=== PATIENT | female | born 1940 | race Caucasian/White ===

== ENCOUNTER 2017-08-01 08:21 | Day surgery (SDC) | payer MEDICARE, OTHER ==
[~2017-08-01 08:21] MED LIST: Lactated Ringers 1,000 ML IV SCH
[2017-08-01] MEDS ORDERED: DIPRIVAN 200 MG/20 ML IV ONE (08:22)
[2017-08-01] MEDS ORDERED: Ketamine HCl 50 MG/ML IJ ONE (08:22)
[2017-08-01] MEDS ORDERED: Lactated Ringers 1,000 ML IV ONE (08:29)
--- NOTE | 2017-08-01 08:41 | HP ---
DATE OF SURGERY: 08/01/2017 HISTORY OF PRESENT ILLNESS: The patient is a 76 year-old with choking-type sensation upper esophagus area involving solids and liquids that has been going on for eight months worse recently. No prior upper endoscopy according to the patient. PAST MEDICAL HISTORY: PAST SURGICAL HISTORY: Cholecystectomy. Hernia repair. Hysterectomy in the past. She said she has a plate in her right leg as well. MEDICATIONS: Oxycodone, acetaminophen, lisinopril, levothyroxine for hypothyroidism, potassium chloride, Lasix, prednisone, oxybutynin. ALLERGIES: NKDA. FAMILY HISTORY: Hypertension, diabetes. SOCIAL HISTORY: No smoking or alcohol abuse. REVIEW OF SYSTEMS: Twelve systems reviewed per admission assessment. No chest pain or palpitations. Other systems negative or noncontributory as above and per preadmission questionnaire. PHYSICAL EXAMINATION: GENERAL: No acute distress. HEENT: Sclerae nonicteric. NECK: No JVD. CHEST: Equal excursion, nonlabored breathing. CVS: Regular rate and rhythm. ABDOMEN: Soft. No peritoneal signs. Nontender, nondistended. EXTREMITIES: No significant edema. NEURO: Alert, moving extremities symmetrically. No gross motor deficits noted. IMPRESSION: Dysphagia. I feel the patient will benefit from upper endoscopy possible dilatation, possible biopsy. Risks and benefits explained in detail, shown the risk sheet and explained the procedure in detail but not limited to bleeding or infection, small risk of bowel injury or perforation possibly requiring open procedure, small risk of missed or nondiagnosis or incomplete exam possibly requiring barium swallow, other studies or procedures, as well as possibility of slight increased risk if dilatation performed perforation possibly requiring major operation, ongoing morbidity or even mortality but not limited to. She also understands that occasionally this is more of a function or nerve-type problem that dilatation may not improve her swallowing or if it does improve her swallowing occasionally people need this repeated in the future with repeat dilatation down the road. She understands and agrees to the planned procedure and will proceed with EGD possible biopsy possible dilatation as an outpatient.
[2017-08-01 08:50] VITALS: O2SAT 98
[2017-08-01 11:16] VITALS: BP 190/100
[2017-08-01 11:53] VITALS: PULSE 71
--- NOTE | 2017-08-01 15:33 | OP ---
SURGERY DATE/TIME: 08/01/2017 1024 PREOPERATIVE DIAGNOSIS: History of some dysphagia. POSTOPERATIVE DIAGNOSES: 1) Proximal esophageal narrowing, distal esophageal narrowing. 2) Hiatal hernia. 3) Some mild gastritis. PROCEDURES: 1) EGD with cold biopsy of the antrum to evaluate for Helicobacter pylori. 2) Esophageal balloon dilatation distal esophagus size 20 balloon dilator. 3) Esophageal balloon dilatation proximal esophageal narrowing (size 20 balloon dilator as well). SURGEON: Dr. Cong Hudson. ANESTHESIA: MAC. ESTIMATED BLOOD LOSS: Minimal. INDICATIONS: As noted above. Risks and benefits explained in detail and not limited to and consent obtained. DESCRIPTION OF PROCEDURE AND FINDINGS: The patient is taken to the endoscopy room. MAC anesthesia introduced. After official time out and no disagreement with planned procedure, a bite block positioned. Video gastroscope easily passed down the esophagus through the patent pylorus to the junction of the second and third portion of the duodenum. On withdrawal of the scope duodenum and duodenal bulb were grossly unremarkable. Back in the stomach had some mild gastritis. Cold biopsy taken to evaluate for Helicobacter pylori. Good hemostasis noted. On retroflex she did have a hiatal hernia. It was difficult to tell the size of the hiatal but seemed to have hiatal hernia. The scope is straightened. Gastroesophageal junction was maybe around 34 cm. There did appear to be a distal esophageal narrowing. There are no signs of any obvious melvi ulceration. No signs of any masses or mucosal lesions. Definitely a narrowing. She also had some spasm and some tertiary contractions of the esophagus. It was felt she warranted balloon dilatation in this area. The scope is passed back down. Otherwise there are no signs of any obvious mucosal lesions in the remainder of the esophagus. The scope is passed back down in the stomach. Balloon catheter carefully inserted, pulled back to the narrowed area distal esophagus. The area in question was then carefully inflated to first stage for 30 to 40 seconds and second stage for 40 to 45 seconds and final stage for 2 minutes size 20 balloon dilator. The balloon was released and then pulled back up to the proximal esophagus which also appeared to have a narrowing of the proximal esophagus. She was having symptoms. It was felt this warranted balloon dilatation as well. The balloon is carefully positioned here and gradually inflated to first stage size 18 first stage for 30 to 40 seconds, the second stage for about 45 seconds, final stage for 1 1/2 to 2 minutes with size 20 balloon dilator. The balloon catheter is then released and withdrawn. The scope carefully passed back down in the stomach and gradually withdrawn. The esophagus was much more widely patent. On careful withdrawal of the scope there were no signs of any full thickness issues or injury secondary to balloon dilatation. The patient tolerated the procedure well. There were no immediate complications. Findings discussed with the family out in the waiting area. She did have tertiary contractions in the esophagus but no signs of any other masses just proximal, distal narrowed area where she was having symptoms and underwent balloon dilatation.
== END 2017-08-01 11:56 | disposition home or self-care (01) ==
LOC: SDC 08:21
PROVIDERS: ATTEND Surgery
PROC: 0DB78ZX Excision of Stomach, Pylorus, Via Natural or Artificial Opening Endoscopic, Diagnostic (ICD-10-PCS; principal; 2017-08-01)
PROC: 0D738ZZ Dilation of Lower Esophagus, Via Natural or Artificial Opening Endoscopic (ICD-10-PCS; 2017-08-01)
PROC: 0D718ZZ Dilation of Upper Esophagus, Via Natural or Artificial Opening Endoscopic (ICD-10-PCS; 2017-08-01)
DX: K22.2 Esophageal obstruction (principal); K44.9 Diaphragmatic hernia without obstruction or gangrene; K29.70 Gastritis, unspecified, without bleeding; E03.9 Hypothyroidism, unspecified; Z79.899 Other long term (current) drug therapy
CPT/HCPCS: 43239; 43249; C1726; 00740; 99100; J2704

== ENCOUNTER 2017-09-21 13:30 | Inpatient (IN) | payer MEDICARE, OTHER ==
--- NOTE | 2017-09-21 14:12 | ERPHSYRPT ---
- History of Present Illness Time Seen by Provider: 09/21/17 14:03 Source: patient Exam Limitations: no limitations Patient Subjective Stated Complaint: having 50+ bloody stools since last night. today is feeling weak and having lower abd cramping. Triage Nursing Assessment: to room per w/c. skin w/d, pale. lips very dry and cracked. abd soft but tender. normal bowel sounds heard. a/o times three. Physician History: The patient is a 77-year-old female with a friend complaining of diarrhea that began last night that progressed to bloody stools today. She has lower abdominal cramping. She is weak. 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 She denies vomiting. She denies fever. She had a colonoscopy sometime in the recent past but states she'll never have another one because it hurt. She says the colonoscopy was negative. Her of colon cancer. She recently started meloxicam and gabapentin. Her past medical history is significant for hypertension, hypothyroidism, GERD, and arthritis. Timing/Duration: yesterday Severity: severe Modifying Factors: Improves With: nothing Associated Symptoms: abdominal pain, No nausea, No vomiting Allergies/Adverse Reactions: No Known Drug Allergies Allergy (Verified 09/21/17 14:00) Home Medications: Levothyroxine Sodium 100 Mcg [Synthroid 100 Mcg] 88 mcg PO DAILY 02/18/14 [ History] Furosemide 40 mg [Lasix 40 MG] 40 mg PO DAILY 01/04/17 [History] Oxybutynin Chloride [Oxybutynin Chloride ER] 10 mg PO DAILY 01/04/17 [History] Oxycodone HCl/Acetaminophen [Percocet 7.5-325 mg Tablet] 1 each PO Q4-6HPRN PRN 01/04/17 [History] Potassium Chloride 10 Meq Tab* [Klor Con 10 MEQ] 10 meq PO DAILY 01/04/17 [ History] Prednisone 5 mg [Deltasone 5 mg] 10 mg PO DAILY 01/04/17 [History] Gabapentin [Neurontin] 300 mg PO HS 09/21/17 [History] Meloxicam [Meloxicam] 7.5 mg PO DAILY 09/21/17 [History] Omeprazole [Prilosec] 20 mg PO DAILY 09/21/17 [History] Tizanidine HCl [Tizanidine HCl] 4 mg PO HS 09/21/17 [History] Hx Tetanus, Diphtheria Vaccination/Date Given: No Hx Influenza Vaccination/Date Given: No Hx Pneumococcal Vaccination/Date Given: Yes - Review of Systems Constitutional: Weakness Eyes: No Symptoms Ears, Nose, & Throat: No Symptoms Respiratory: No Cough, No Dyspnea Cardiac: No Chest Pain, No Edema, No Syncope Abdominal/Gastrointestinal: Abdominal Pain, Diarrhea, Melena, No Nausea, No Vomiting Genitourinary Symptoms: No Dysuria Musculoskeletal: No Back Pain, No Neck Pain Skin: No Rash Neurological: No Dizziness, No Focal Weakness, No Sensory Changes Psychological: No Symptoms Endocrine: No Symptoms Hematologic/Lymphatic: No Symptoms Immunological/Allergic: No Symptoms All Other Systems: Reviewed and Negative - Past Medical History Pertinent Past Medical History: Yes Neurological History: No Pertinent History ENT History: No Pertinent History Cardiac History: Hypertension Respiratory History: No Pertinent History Endocrine Medical History: Hypothyroidism Musculoskeletal History: Arthritis, Osteoporosis GI Medical History: Gallbladder Disease History: No Pertinent History Psycho-Social History: No Pertinent History Female Reproductive Disorders: No Pertinent History Other Medical History: SEE MD REFERRAL FOR DETAILED MEDICAL HISTORY - Past Surgical History Past Surgical History: Yes Neuro Surgical History: No Pertinent History Cardiac: Cardiac Catheterization Respiratory: No Pertinent History Gastrointestinal: Cholecystectomy, Hernia Repair Genitourinary: No Pertinent History Musculoskeletal: Orthopedic Surgery Female Surgical History: Hysterectomy Other Surgical History: right hip fx repair - Social History Smoking Status: Never smoker Exposure to second hand smoke: No Drug Use: none Patient Lives Alone: Yes - Female History Hx Now: No - Nursing Vital Signs Nursing Vital Signs: Initial Vital Signs Temperature 97.6 F 09/21/17 13:52 Pulse Rate 99 H 09/21/17 13:52 Respiratory Rate 16 09/21/17 13:52 Blood Pressure 138/65 09/21/17 13:52 O2 Sat by Pulse Oximetry 96 09/21/17 13:52 Pain Scale Pain Intensity 0 - Physical Exam General Appearance: mild distress, lethargy Eye Exam: PERRL/EOMI, eyes nml inspection Ears, Nose, Throat Exam: normal ENT inspection, TMs normal, pharynx normal, dry mucous membranes Neck Exam: normal inspection, non-tender, supple, full range of motion Respiratory Exam: normal breath sounds, lungs clear, No respiratory distress Cardiovascular Exam: regular rate/rhythm, normal heart sounds, normal peripheral pulses Gastrointestinal/Abdomen Exam: soft, normal bowel sounds, tenderness, No mass Pelvic Exam: not done Rectal Exam: not done Back Exam: normal inspection, normal range of motion, No CVA tenderness, No vertebral tenderness Extremity Exam: normal inspection, normal range of motion, pelvis stable Neurologic Exam: alert, oriented x 3, cooperative, normal mood/affect, nml cerebellar function, nml station & gait, sensation nml, No motor deficits Skin Exam: dry Lymphatic Exam: No adenopathy SpO2 Interpretation: normal SpO2: 96 Oxygen Delivery: Room Air - Radiology Exams Chest X-ray Interpretation: Teleradiologist Report, Negative (per Dr Boothe.) Abdomen X-ray Interpretation: Teleradiologist Report, Negative (per Dr Boothe) Ordered Tests: Active Orders 24 hr Category Date Time Status IV Insertion STAT Care 09/21/17 14:17 Active OBSTR/ACUTE ABDOMEN SERIES Stat Exams 09/21/17 14:17 Completed CBC W DIFF Stat Lab 09/21/17 14:00 Completed CMP Stat Lab 09/21/17 14:00 Completed Lactic Acid Stat Lab 09/21/17 14:35 Completed Manual Differential NC Stat Lab 09/21/17 14:00 Completed Occult Blood,Stool Other Stat Lab 09/21/17 14:00 Completed UA W/RFX UR CULTURE Stat Lab 09/21/17 14:17 Completed Medication Summary Discontinued Medications Generic Name Dose Route Start Last Admin Trade Name Freq PRN Reason Stop Dose Admin Sodium Chloride 1,000 mls @ 999 mls/hr 09/21/17 14:17 09/21/17 14:27 Sodium Chloride 0.9% 1000 Ml IV 09/21/17 15:17 999 mls/hr .Q1H1M STA Administration Sodium Chloride Confirm 09/21/17 14:22 Sodium Chloride 0.9% 1000 Ml Administered 09/21/17 14:23 Dose 1,000 mls @ ud .ROUTE .STK-MED ONE Ondansetron HCl 4 mg 09/21/17 14:17 09/21/17 14:27 Zofran 4 Mg/2 Ml Vial IV 09/21/17 14:18 4 mg STAT ONE Administration Ondansetron HCl Confirm 09/21/17 14:22 Zofran 4 Mg/2 Ml Vial Administered 09/21/17 14:23 Dose 4 mg .ROUTE .STK-MED ONE Pantoprazole Sodium 40 mg 09/21/17 14:17 09/21/17 14:26 Protonix 40 Mg Iv IV 09/21/17 14:18 40 mg STAT ONE Administration Pantoprazole Sodium Confirm 09/21/17 14:22 Protonix 40 Mg Iv Administered 09/21/17 14:23 Dose 40 mg IV .STK-MED ONE Lab/Rad Data: Laboratory Result Diagrams 09/21/17 14:00 09/21/17 14:00 Laboratory Results 09/21/17 09/21/17 09/21/17 Range/Units 14:35 14:17 14:00 WBC (4.0-10.5) K/mm3 RBC (4.1-5.4) M/mm3 Hgb (12.0-16.0) gm/dl Hct (35-47) % MCV (78-100) fl MCH (26-32) pg MCHC (32-36) g/dl RDW (11.5-14.0) % Plt Count (150-450) K/mm3 MPV (6-9.5) fl Segmented Neutrophils (36.0-66.0) % Band Neutrophils (0.0-2.0) % Lymphocytes (Manual) (24-44) % Monocytes (Manual) (0.0-12.0) % Differential Comment Toxic Granulation Platelet Estimate (NORMAL) Anisocytosis Sodium 124 L (136-145) mEq/L Potassium 4.3 (3.5-5.1) mEq/L Chloride 90 L (98-107) mEq/L Carbon Dioxide 20.0 L (21-32) mEq/L Anion Gap 18.5 H (5-15) MEQ/L BUN 24 H (9-20) mg/dL Creatinine 1.71 H (0.55-1.30) mg/dl Estimated GFR 31 ML/MIN Glucose 129 H (70-110) MG/DL Lactic Acid 1.2 (0.4-2.0) Calcium 8.8 (8.5-10.1) mg/dL Total Bilirubin 0.70 (0.2-1.0) mg/dL AST 16 (15-37) U/L ALT 14 (12-78) U/L Alkaline Phosphatase 66 (46-116) U/L Serum Total Protein 7.1 (6.4-8.2) gm/dL Albumin 3.0 L (3.4-5.0) g/dL Ur Collection Type CATH Urine Color YELLOW (YELLOW) Urine Appearance CLEAR (CLEAR) Urine pH 5.0 (5-6) Ur Specific Holmes 1.020 (1.005-1.025) Urine Protein NEGATIVE (Negative) Urine Ketones MODERATE (NEGATIVE) Urine Blood NEGATIVE (0-5) Josse/ul Urine Nitrite NEGATIVE (NEGATIVE) Urine Bilirubin NEGATIVE (NEGATIVE) Urine Urobilinogen NORMAL (0-1) mg/dL Ur Leukocyte Esterase NEGATIVE (NEGATIVE) Urine Culture Reflexed NO (NO) Urine Glucose NEGATIVE (NEGATIVE) mg/dL Stool Occult Blood (Negative) Specimen Received 09/21/17 09/21/17 09/21/17 Range/Units 14:00 14:00 WBC 26.8 H* (4.0-10.5) K/mm3 RBC 4.67 (4.1-5.4) M/mm3 Hgb 13.6 (12.0-16.0) gm/dl Hct 40.9 (35-47) % MCV 87.6 (78-100) fl MCH 29.1 (26-32) pg MCHC 33.3 (32-36) g/dl RDW 14.2 H (11.5-14.0) % Plt Count 391 (150-450) K/mm3 MPV 9.0 (6-9.5) fl Segmented Neutrophils 88 H (36.0-66.0) % Band Neutrophils 3 H (0.0-2.0) % Lymphocytes (Manual) 4 L (24-44) % Monocytes (Manual) 5 (0.0-12.0) % Differential Comment ABNORMAL Toxic Granulation 1+ Platelet Estimate NORMAL (NORMAL) Anisocytosis 1+ Sodium (136-145) mEq/L Potassium (3.5-5.1) mEq/L Chloride (98-107) mEq/L Carbon Dioxide (21-32) mEq/L Anion Gap (5-15) MEQ/L BUN (9-20) mg/dL Creatinine (0.55-1.30) mg/dl Estimated GFR ML/MIN Glucose (70-110) MG/DL Lactic Acid (0.4-2.0) Calcium (8.5-10.1) mg/dL Total Bilirubin (0.2-1.0) mg/dL AST (15-37) U/L ALT (12-78) U/L Alkaline Phosphatase (46-116) U/L Serum Total Protein (6.4-8.2) gm/dL Albumin (3.4-5.0) g/dL Ur Collection Type Urine Color (YELLOW) Urine Appearance (CLEAR) Urine pH (5-6) Ur Specific Holmes (1.005-1.025) Urine Protein (Negative) Urine Ketones (NEGATIVE) Urine Blood (0-5) Josse/ul Urine Nitrite (NEGATIVE) Urine Bilirubin (NEGATIVE) Urine Urobilinogen (0-1) mg/dL Ur Leukocyte Esterase (NEGATIVE) Urine Culture Reflexed (NO) Urine Glucose (NEGATIVE) mg/dL Stool Occult Blood POSITIVE (Negative) Specimen Received - Progress Progress: improved Discussed with : Caty Counseled pt/family regarding: lab results, diagnosis, rad results - Departure Time of Disposition: 15:33 Departure Disposition: Home Clinical Impression: Colitis, GI bleeding Condition: Stable Critical Care Time: No Referrals: BAKARI HEDRICK [Primary Care Provider] -
[2017-09-21] MEDS ORDERED: Sodium Chloride 0.9% 1000 ML 1,000 ML IV STA ×2 (14:17→18:41)
[2017-09-21] MEDS ORDERED: PROTONIX 40 MG IV IV ONE ×2 (14:17→14:22)
[2017-09-21] MEDS ORDERED: Zofran 4 MG/2 ML VIAL IV ONE (14:17)
[2017-09-21] MEDS ORDERED: Sodium Chloride 0.9% 1000 ML 1,000 ML ONE (14:22)
[2017-09-21] MEDS ORDERED: Zofran 4 MG/2 ML VIAL ONE (14:22)
[2017-09-21 14:24] LABS: Granulocyte Absolute (ANC) 21.48 (1.4-6.9); Hematocrit 40.9 % (35-47); Hemoglobin 13.6 gm/dl (12.0-16.0); Mean Cell Volume 87.6 fl (78-100); Mean Corpuscular Hemoglobin 29.1 pg (26-32); Mean Corpuscular Hgb Concent. 33.3 g/dl (32-36); Platelet Count 391 K/mm3 (150-450); Red Blood Count 4.67 M/mm3 (4.1-5.4); Red Cell Distribution Width 14.2 % (11.5-14.0)
[2017-09-21 14:33] LABS: ANION GAP 18.5 MEQ/L (5-15); BILIRUBIN,TOTAL 0.7 mg/dL (0.2-1.0); Calcium 8.8 mg/dL (8.5-10.1); Creatinine 1 1.71 mg/dl (0.55-1.30); Potassium 4.3 mEq/L (3.5-5.1); Total Protein 7.1 gm/dL (6.4-8.2)
[2017-09-21 14:47] LABS: White Blood Count 26.8 K/mm3 (4.0-10.5)
[2017-09-21 14:55] LABS: Appearance CLEAR (CLEAR); Glucose NEGATIVE (NEGATIVE); Ketones MODERATE (NEGATIVE); Leukocyte Esterase NEGATIVE (NEGATIVE); Nitrite NEGATIVE (NEGATIVE); Protein,Urine Dip NEGATIVE (Negative)
[2017-09-21 14:56] LABS: Bilirubin NEGATIVE (NEGATIVE); Blood NEGATIVE Ery/ul (0-5); Urobilinogen NORMAL mg/dL (0-1)
[2017-09-21 15:06] LABS: BAND 3 % (0.0-2.0); Lymphocytes 4 % (24-44); Monocyte 5 % (0.0-12.0); Neutrophils 88 % (36.0-66.0); Total Cells Counted 100
[2017-09-21 15:07] LABS: Platelet Estimate NORMAL (NORMAL); Toxic Granulation 1+
[2017-09-21 15:08] LABS: ANISOCYTOSIS 1+
--- NOTE | 2017-09-21 15:14 | XRAY ---
Indication: Diarrhea. Blood in stool. Comparison: June 28, 2016. Supine and left lateral decubitus abdomen demonstrates nonspecific nonobstructed bowel gas pattern. No focal bowel dilatation or free air. Solid organs unremarkable. Osseous structures intact again with mild scoliosis and old right proximal femur fracture. Single AP chest again demonstrates normal heart and lungs with small hiatal hernia. Bony thorax intact with mild osteopenia and degenerative changes. Impression: 1. Nonacute nonobstructed abdomen. 2. Stable nonacute one view chest with small hiatal hernia.
[2017-09-21] MEDS ORDERED: TYLENOL 325 MG PO PRN (15:54)
[2017-09-21] MEDS ORDERED: Zofran 4 MG/2 ML VIAL IV PRN (15:54)
[2017-09-21] MEDS: MORPHINE SULFATE 4 MG INJ IV PRN (16:49)
[2017-09-21] MEDS ORDERED: NON-FORMULARY ITEM (Oxycodone Hcl/Acetaminophen [Percocet 7.5-325 Mg Tablet] 1 EACH) PO PRN (16:50)
[2017-09-21] MEDS: Sodium Chloride 0.9% 1000 ML 1,000 ML IV SCH ×2 (17:21→22:28)
[2017-09-21] MEDS: SYNTHROID 88 MCG PO SCH (17:21)
[2017-09-21] MEDS: DELTASONE 10 MG PO SCH (17:21)
--- NOTE | 2017-09-21 18:53 | PCM.HP ---
History of Present Illness - Chief Complaint Chief Complaint: COLITIS, GI BLEED Date: 09/21/17 History of Present Illness: is a 77 year old female. who has history of chronic pain and ckd and was recently started on meloxicam that she started Tuesday night from her pain mgmt doctor. She also started gabapentin at that time. She continued her chronic percocet therapy as well with no changes. She has not been on any antibiotics. She has no known sick contacts and lives alone. She did not eat anything undercooked or out of her ordinary. She started feeling ill yesterday evening and was having cramping abdominal pain and copious frequent diarrhea that turned bloody. She did not call anyone until 1pm today when she called her son and he came and found her very weak and helped try to clean her up from the bloody diarrhea. He then brought her to the ED. she has not urinated or had a BM since arrival. She was given morphine on arrival to the floor and that helped some with the pain. - Review of Systems Constitutional: Fatigue, No Fever, No Chills Eyes: No Symptoms Ears, Nose, & Throat: No Symptoms Respiratory: No Cough, No Short Of Breath Cardiac: No Chest Pain, No Edema, No Syncope Abdominal/Gastrointestinal: Abdominal Pain, Nausea, Diarrhea, Hematochezia, No Vomiting Genitourinary Symptoms: No Dysuria, No Frequency Musculoskeletal: Back Pain, Joint Pain (chronic hip pain), No Neck Pain Skin: No Rash Neurological: Dizziness, No Focal Weakness, No Sensory Changes Psychological: No Symptoms Endocrine: No Symptoms Hematologic/Lymphatic: No Symptoms Immunological/Allergic: No Symptoms Medications & Allergies Home Medications: Home Medication List Lisinopril 20 mg [Zestril 20 MG] 20 mg PO DAILY #0 tablet 06/29/16 [Rx Confirmed 09/21/17] Furosemide 40 mg [Lasix 40 MG] 40 mg PO DAILY 01/04/17 [History Confirmed 09/21/17] Oxybutynin Chloride [Oxybutynin Chloride ER] 10 mg PO DAILY 01/04/17 [History Confirmed 09/21/17] Oxycodone HCl/Acetaminophen [Percocet 7.5-325 mg Tablet] 1 each PO Q4-6HPRN PRN 01/04/17 [History Confirmed 09/21/17] Potassium Chloride 10 Meq Tab* [Klor Con 10 MEQ] 10 meq PO DAILY 01/04/17 [ History Confirmed 09/21/17] Prednisone 5 mg [Deltasone 5 mg] 10 mg PO DAILY 01/04/17 [History Confirmed 09/21/17] Gabapentin [Neurontin] 300 mg PO HS 09/21/17 [History Confirmed 09/21/17] Levothyroxine Sodium 88 Mcg [Synthroid 88 Mcg] 88 mcg PO DAILY 09/21/17 [ History Confirmed 09/21/17] Meloxicam [Meloxicam] 7.5 mg PO DAILY 09/21/17 [History Confirmed 09/21/17] Omeprazole [Prilosec] 20 mg PO DAILY 09/21/17 [History Confirmed 09/21/17] Tizanidine HCl [Tizanidine HCl] 4 mg PO HS 09/21/17 [History Confirmed 09/21/17] Allergies/Adverse Reactions: Allergies Allergy/AdvReac Type Severity Reaction Status Date / Time No Known Drug Allergies Allergy Verified 09/21/17 14:00 - Past Medical History Past Medical History: Yes Neurological History: No Pertinent History ENT History: No Pertinent History Cardiac History: Hypertension Respiratory History: No Pertinent History Endocrine Medical History: Hypothyroidism Musculoskelatal History: Arthritis, Osteoporosis GI Medical History: Gallbladder Disease History: No Pertinent History Pyscho-Social History: No Pertinent History Reproductive Disorders: No Pertinent History Comment: SEE MD REFERRAL FOR DETAILED MEDICAL HISTORY - Female History Are you now?: No - Past Surgical History Past Surgical History: Yes Neuro Surgical History: No Pertinent History Cardiac History: Cardiac Catheterization Respiratory Surgery: No Pertinent History GI Surgical History: Cholecystectomy, Hernia Repair Genitourinary Surgical Hx: No Pertinent History Musculskeletal Surgical Hx: Orthopedic Surgery Female Surgical History: Hysterectomy Other Surgical History: right hip fx repair - Social History Smoking Status: Never smoker Exposure to second hand smoke: No Alcohol: None Drug Use: none - Physical Exam Vital Signs: Vital Signs - 24 hr Temp Pulse Resp BP Pulse Ox 09/21/17 16:04 98.5 F 98 H 18 156/69 98 09/21/17 16:02 98.5 F 98 H 156/69 09/21/17 15:54 98.5 F 98 H 18 156/69 98 09/21/17 15:50 98.5 F 98 H 18 156/69 98 09/21/17 15:43 94 H 16 154/63 09/21/17 15:37 96 09/21/17 15:23 96 H 20 162/71 97 09/21/17 14:29 97 H 16 142/51 96 09/21/17 13:52 97.6 F 99 H 16 138/65 96 General Appearance: no apparent distress, alert Neurologic Exam: alert, oriented x 3, cooperative, normal mood/affect, nml cerebellar function, sensation nml, No motor deficits Eye Exam: PERRL/EOMI, eyes nml inspection Ears, Nose, Throat Exam: normal ENT inspection, pharynx normal, dry mucous membranes Neck Exam: normal inspection, non-tender, supple, full range of motion Respiratory Exam: normal breath sounds, lungs clear, No respiratory distress Cardiovascular Exam: normal heart sounds, normal peripheral pulses, tachycardia Gastrointestinal/Abdomen Exam: soft, normal bowel sounds, tenderness, No distention, No mass, No guarding, No ecchymosis Back Exam: normal inspection, normal range of motion, No CVA tenderness, No vertebral tenderness Extremity Exam: normal inspection, normal range of motion, pelvis stable Skin Exam: normal color, warm, dry, No rash Lymphatic Exam: No adenopathy Results - Radiology Impressions Radiology Exams & Impressions: Radiology Procedures Category Date Time Status ABDOMEN AND PELVIS W/0 CONTRAS [CT] Stat Exams 09/21/17 18:42 Ordered Assessment/Plan (1) Colitis Current Visit: Yes Status: Acute Assessment & Plan: she has previous history of C. diff that presented in a similar manner she has not had stool since arrival Possible etiology of infectious colitis vs ischemic colitis from starting the meloxicam check CT abd/pelvis now will start flagyl IV now if stool negative for c. diff will add levoquin she still tachycardia with dry skin and no urine output since arrival give additional 1L NS bolus now monitor output continue NS at 125 mL/h continue tele hold diuretics, kaushik inhibitor, and all nsaids Code(s): K52.9 - NONINFECTIVE GASTROENTERITIS AND COLITIS, UNSPECIFIED (2) Hematochezia Current Visit: Yes Status: Acute Code(s): K92.1 - MELENA (3) Acute kidney injury Current Visit: Yes Status: Acute Code(s): N17.9 - ACUTE KIDNEY FAILURE, UNSPECIFIED (4) Hyponatremia Current Visit: Yes Status: Acute Code(s): E87.1 - HYPO-OSMOLALITY AND HYPONATREMIA (5) Essential hypertension Current Visit: Yes Status: Chronic Code(s): I10 - ESSENTIAL (PRIMARY) HYPERTENSION
[2017-09-21] MEDS: FLAGYL 500 MG IVPB 500 MG/100 ML BAG IV SCH ×2 (19:33→23:39)
[2017-09-21] MEDS: NEURONTIN 300 MG PO SCH (20:55)
[2017-09-21] MEDS ORDERED: Zanaflex 4 MG PO PRN (22:00)
[2017-09-21] MEDS: Levofloxacin 500MG/100ML D5W 500 MG/100 ML BAG IV SCH (22:28)
[2017-09-22] MEDS: MORPHINE SULFATE 4 MG INJ IV PRN ×4 (03:05→17:16)
[2017-09-22] MEDS: FLAGYL 500 MG IVPB 500 MG/100 ML BAG IV SCH ×4 (05:25→23:49)
[2017-09-22 06:22] LABS: Hematocrit 34.4 % (35-47); Hemoglobin 11.2 gm/dl (12.0-16.0); Mean Cell Volume 88.9 fl (78-100); Mean Corpuscular Hemoglobin 28.9 pg (26-32); Mean Corpuscular Hgb Concent. 32.6 g/dl (32-36); Mean Platelet Volume 8.7 fl (6-9.5); Platelet Count 327 K/mm3 (150-450); Red Blood Count 3.87 M/mm3 (4.1-5.4); Red Cell Distribution Width 14.5 % (11.5-14.0)
[2017-09-22 06:34] LABS: ALBUMIN 2.2 g/dL (3.4-5.0); ANION GAP 12.9 MEQ/L (5-15); BILIRUBIN,TOTAL 0.3 mg/dL (0.2-1.0); Calcium 7.5 mg/dL (8.5-10.1); Creatinine 1 1.08 mg/dl (0.55-1.30); Potassium 4.7 mEq/L (3.5-5.1); Total Protein 5.8 gm/dL (6.4-8.2)
[2017-09-22 06:49] LABS: White Blood Count 25.1 K/mm3 (4.0-10.5)
[2017-09-22 07:12] LABS: Basophil 4 % (0.0-1.0); Lymphocytes 2 % (24-44); Monocyte 3 % (0.0-12.0); Neutrophils 91 % (36.0-66.0); Platelet Estimate NORMAL (NORMAL); Total Cells Counted 100; Toxic Granulation 3+
--- NOTE | 2017-09-22 08:18 | PCM.NOTE ---
Date and Time: 09/22/17813 Subjective Assessment: she had a few episodes of severe abdominal pain overnight no bowel movements or bleeding no vomiting. The pain was relieved with morphine. She feels very weak but otherwise feels the pain is improving. Objective Exam General Appearance: no apparent distress, alert Neurologic Exam: alert, oriented x 3, cooperative, normal mood/affect, sensation nml, No motor deficits Skin Exam: normal color, warm, dry Eye Exam: PERRL, EOMI, eyes nml inspection Ears, Nose, Throat Exam: normal ENT inspection, pharynx normal, moist mucous membranes Neck Exam: normal inspection, non-tender, supple, full range of motion Respiratory Exam: normal breath sounds, lungs clear, No respiratory distress Cardiovascular Exam: regular rate/rhythm, normal heart sounds Gastrointestinal/Abdomen Exam: soft, normal bowel sounds, tenderness (bilateral mid abdomen), No distention, No mass, No guarding, No rebound Extremity Exam: normal inspection, normal range of motion Back Exam: normal inspection, normal range of motion, No CVA tenderness, No vertebral tenderness Pelvic Exam: deferred Rectal Exam: deferred OBJECTIVE DATA Vital Signs: Vital Signs - 24 hr Temp Pulse Resp BP Pulse Ox 09/22/17 07:00 98.4 F 88 16 138/63 92 L 09/22/17 03:00 98.2 F 84 17 197/86 93 L 09/21/17 23:00 97.7 F 86 16 125/60 91 L 09/21/17 19:54 100.2 F 97 H 18 160/70 97 09/21/17 16:04 98.5 F 98 H 18 156/69 98 09/21/17 16:02 98.5 F 98 H 156/69 09/21/17 15:54 98.5 F 98 H 18 156/69 98 09/21/17 15:50 98.5 F 98 H 18 156/69 98 09/21/17 15:43 94 H 16 154/63 09/21/17 15:37 96 09/21/17 15:23 96 H 20 162/71 97 09/21/17 14:29 97 H 16 142/51 96 09/21/17 13:52 97.6 F 99 H 16 138/65 96 Pain Assessment - Last Documented Pain Intensity 8 Pain Scale Used 0-10 Pain Scale Intake and Output: Intake & Output 09/19/17 09/20/17 09/21/17 09/22/17 11:59 11:59 11:59 11:59 Intake Total 200 Output Total 1200 Balance -1000 Weight 69.031 kg Lab Results: Lab Results-Last 24 Hours 09/22/17 09/22/17 Range/Units 05:00 05:00 WBC 25.1 H* (4.0-10.5) K/mm3 RBC 3.87 L (4.1-5.4) M/mm3 Hgb 11.2 L (12.0-16.0) gm/dl Hct 34.4 L (35-47) % MCV 88.9 (78-100) fl MCH 28.9 (26-32) pg MCHC 32.6 (32-36) g/dl RDW 14.5 H (11.5-14.0) % Plt Count 327 (150-450) K/mm3 MPV 8.7 (6-9.5) fl Segmented Neutrophils 91 H (36.0-66.0) % Lymphocytes (Manual) 2 L (24-44) % Monocytes (Manual) 3 (0.0-12.0) % Basophils (Manual) 4 H (0.0-1.0) % Differential Comment NORMAL Toxic Granulation 3+ Platelet Estimate NORMAL (NORMAL) Sodium 128 L (136-145) mEq/L Potassium 4.7 (3.5-5.1) mEq/L Chloride 100 (98-107) mEq/L Carbon Dioxide 20.0 L (21-32) mEq/L Anion Gap 12.9 (5-15) MEQ/L BUN 17 (9-20) mg/dL Creatinine 1.08 (0.55-1.30) mg/dl Estimated GFR 52 ML/MIN Glucose 103 (70-110) MG/DL Calcium 7.5 L (8.5-10.1) mg/dL Total Bilirubin 0.30 (0.2-1.0) mg/dL AST 12 L (15-37) U/L ALT 11 L (12-78) U/L Alkaline Phosphatase 53 (46-116) U/L Serum Total Protein 5.8 L (6.4-8.2) gm/dL Albumin 2.2 L (3.4-5.0) g/dL Radiology Exams: Radiology Procedures Category Date Time Status ABDOMEN AND PELVIS W/0 CONTRAS [CT] Stat Exams 09/21/17 18:42 Taken Assessment/Plan (1) Colitis Current Visit: Yes Status: Acute Assessment & Plan: no stool since arrival no bleeding since arrival pain improving but still needs iv pain meds prn there is correction of the acute kidney injury she is urinating well the hyponatremia is improving continue levaquin and flagyl for now pending stool sample advance diet to clear liquids advance as tolerated. continue to hold kaushik inhibitor and nsaids. Code(s): K52.9 - NONINFECTIVE GASTROENTERITIS AND COLITIS, UNSPECIFIED (2) Hematochezia Current Visit: Yes Status: Acute Code(s): K92.1 - MELENA (3) Acute kidney injury Current Visit: Yes Status: Acute Code(s): N17.9 - ACUTE KIDNEY FAILURE, UNSPECIFIED (4) Hyponatremia Current Visit: Yes Status: Acute Code(s): E87.1 - HYPO-OSMOLALITY AND HYPONATREMIA (5) Essential hypertension Current Visit: Yes Status: Chronic Code(s): I10 - ESSENTIAL (PRIMARY) HYPERTENSION
[2017-09-22] MEDS: Sodium Chloride 0.9% 1000 ML 1,000 ML IV SCH (08:36)
--- NOTE | 2017-09-22 08:44 | XRAY ---
Indication: Lower abdominal pain, bloody stools, and diarrhea. Multiple contiguous axial images obtained through the abdomen and pelvis without contrast as ordered. Comparison: June 25, 2016. Lung bases again hyperinflated with mild scattered fibrosis/scarring and right infrahilar/left base calcified granulomas. No infiltrate or effusion. Heart is not enlarged. Stable paraesophageal hiatal hernia. Noncontrasted bowel loops appear nonobstructed. There is now moderate circumferential wall thickening involving the majority of the transverse colon with pericolonic stranding favoring colitis. Small cul-de-sac fluid presumed reactive. No free air. Stable sigmoid diverticulosis. Again previous hysterectomy and cholecystectomy. There remains a few tiny calcified hepatic granulomas. Common bile duct 14 mm. Remaining liver, pancreas, spleen, adrenal glands, kidneys, ureters, and bladder appear unremarkable for noncontrast exam. Mild aortoiliac calcifications without AAA. Osseous structures intact again with mild degenerative changes throughout the spine and old right proximal femur fracture with partially visualized orthopedic hardware. There is now nondisplaced healing right lateral 7th rib fracture. Stable tiny fatty midline ventral hernia at the level of pelvis. Impression: 1. Again CT features favoring colitis as detailed. Small pelvic free fluid presumed reactive. 2. Stable paraesophageal hiatal hernia, sigmoid diverticulosis, evidence for old granulomatous disease, and fatty ventral hernia. 3. Healing right 7th rib fracture. CT DI 12.85
[2017-09-22] MEDS: SYNTHROID 88 MCG PO SCH (08:48)
[2017-09-22] MEDS: DELTASONE 10 MG PO SCH (08:48)
[2017-09-22] MEDS: Levofloxacin 500MG/100ML D5W 500 MG/100 ML BAG IV SCH ×2 (08:48→10:45)
[2017-09-22] MEDS: PROTONIX 40 MG IV IV SCH (08:49)
[2017-09-22] MEDS: PERCOCET TABLET 5/325MG PO PRN ×2 (09:56→22:08)
[2017-09-22] MEDS ORDERED: FLUZONE HIGH-DOSE 2017-18 SYR IM ONE (10:00)
[2017-09-22] MEDS: NEURONTIN 300 MG PO SCH (20:12)
[2017-09-23 05:48] LABS: Hematocrit 27.5 % (35-47); Hemoglobin 8.8 gm/dl (12.0-16.0); Mean Cell Volume 90.8 fl (78-100); Mean Platelet Volume 8.5 fl (6-9.5); Platelet Count 258 K/mm3 (150-450); Red Blood Count 3.03 M/mm3 (4.1-5.4); Red Cell Distribution Width 15.1 % (11.5-14.0); White Blood Count 22.3 K/mm3 (4.0-10.5)
[2017-09-23] MEDS: Sodium Chloride 0.9% 1000 ML 1,000 ML IV SCH (05:48)
[2017-09-23] MEDS: FLAGYL 500 MG IVPB 500 MG/100 ML BAG IV SCH ×4 (05:50→23:24)
[2017-09-23] MEDS: PERCOCET TABLET 5/325MG PO PRN ×3 (05:54→17:34)
[2017-09-23 06:25] LABS: ALBUMIN 1.9 g/dL (3.4-5.0); ALKALINE PHOSPHATASE 45 U/L (46-116); ANION GAP 11.9 MEQ/L (5-15); BLOOD UREA NITROGEN 6 mg/dL (9-20); CHLORIDE 105 mEq/L (98-107); Calcium 7.1 mg/dL (8.5-10.1); Carbon Dioxide 21.3 mEq/L (21-32); Creatinine 1 0.75 mg/dl (0.55-1.30); EST GLOMERULAR FILTRATION RATE > 60 ML/MIN; Glucose 93 MG/DL (70-110); Potassium 3.8 mEq/L (3.5-5.1); SGOT/AST 10 U/L (15-37); SGPT/ALT 7 U/L (12-78); SODIUM 134 mEq/L (136-145)
[2017-09-23 07:07] LABS: BAND 9 % (0.0-2.0); Eosinophil 2 % (0.00-3.0); Lymphocytes 3 % (24-44); Monocyte 6 % (0.0-12.0); Neutrophils 80 % (36.0-66.0); Total Cells Counted 100
[2017-09-23 07:09] LABS: ANISOCYTOSIS 1+; Hypochromia 1+; Platelet Estimate NORMAL (NORMAL)
[2017-09-23 07:36] LABS: 027 TOX PROD PRESUMPTIVE NEGATIVE (NEGATIVE); TOXIGENIC C. DIFF ORG NEGATIVE (NEGATIVE)
--- NOTE | 2017-09-23 07:48 | PCM.NOTE ---
Date and Time: 09/23/17 0739 Subjective Assessment: still with abdominal pain and weakness needs help ambulating to the restroom she had a small loose BM last night and a larger loose bm today that were reported as no visual blood and were negative for C. diff. She is tolerating clears but very slow and causes some pain in the abdomen. She is having some swelling of her fingers and feet. no shortness of breath. Objective Exam General Appearance: no apparent distress, alert Neurologic Exam: alert, oriented x 3, cooperative, normal mood/affect, nml cerebellar function, sensation nml, No motor deficits Skin Exam: normal color, warm, dry Eye Exam: PERRL, EOMI, eyes nml inspection Ears, Nose, Throat Exam: normal ENT inspection, pharynx normal, moist mucous membranes Neck Exam: normal inspection, non-tender, supple, full range of motion Respiratory Exam: normal breath sounds, lungs clear, No respiratory distress Cardiovascular Exam: regular rate/rhythm, normal heart sounds, edema (trace pitting edema bilatearl hands and 1+ bilateral lower extremities) Gastrointestinal/Abdomen Exam: soft, normal bowel sounds, tenderness (bilateral mid to upper abdomen), No distention, No mass, No guarding, No rebound Extremity Exam: normal inspection, normal range of motion Back Exam: normal inspection, normal range of motion, No CVA tenderness, No vertebral tenderness Pelvic Exam: deferred Rectal Exam: deferred OBJECTIVE DATA Vital Signs: Vital Signs - 24 hr Temp Pulse Resp BP Pulse Ox 09/23/17 07:39 96.5 F 60 16 129/66 94 L 09/23/17 03:51 98.6 F 72 16 144/63 92 L 09/23/17 00:00 99.1 F 77 20 121/58 93 L 09/22/17 20:00 99.2 F 86 18 144/64 93 L 09/22/17 15:54 98.6 F 84 16 120/60 93 L 09/22/17 10:59 99.2 F 88 16 121/55 91 L Pain Assessment - Last Documented Pain Intensity 0 Pain Scale Used 0-10 Pain Scale Intake and Output: Intake & Output 09/20/17 09/21/17 09/22/17 09/23/17 11:59 11:59 11:59 11:59 Intake Total 600 2301 Output Total 1500 Balance 600 801 Weight 72.439 kg Lab Results: Lab Results-Last 24 Hours 09/23/17 09/23/17 09/23/17 Range/Units 05:11 05:15 05:15 WBC 22.3 H (4.0-10.5) K/mm3 RBC 3.03 L (4.1-5.4) M/mm3 Hgb 8.8 L (12.0-16.0) gm/dl Hct 27.5 L (35-47) % MCV 90.8 (78-100) fl MCH 29.0 (26-32) pg MCHC 32.0 (32-36) g/dl RDW 15.1 H (11.5-14.0) % Plt Count 258 (150-450) K/mm3 MPV 8.5 (6-9.5) fl Segmented Neutrophils 80 H (36.0-66.0) % Band Neutrophils 9 H (0.0-2.0) % Lymphocytes (Manual) 3 L (24-44) % Monocytes (Manual) 6 (0.0-12.0) % Eosinophils (Manual) 2 (0.00-3.0) % Differential Comment ABNORMAL Platelet Estimate NORMAL (NORMAL) Hypochromasia 1+ Anisocytosis 1+ Sodium 134 L (136-145) mEq/L Potassium 3.8 (3.5-5.1) mEq/L Chloride 105 (98-107) mEq/L Carbon Dioxide 21.3 (21-32) mEq/L Anion Gap 11.9 (5-15) MEQ/L BUN 6 L (9-20) mg/dL Creatinine 0.75 (0.55-1.30) mg/dl Estimated GFR > 60 ML/MIN Glucose 93 (70-110) MG/DL Calcium 7.1 L (8.5-10.1) mg/dL Total Bilirubin 0.20 (0.2-1.0) mg/dL AST 10 L (15-37) U/L ALT 7 L (12-78) U/L Alkaline Phosphatase 45 L (46-116) U/L Serum Total Protein 5.0 L (6.4-8.2) gm/dL Albumin 1.9 L (3.4-5.0) g/dL Stl C. diff Tox B Gene NEGATIVE (NEGATIVE) C.difficile [id number] PRESUMPTIVE NEGATIVE (NEGATIVE) Assessment/Plan (1) Colitis Current Visit: Yes Status: Acute Assessment & Plan: transverse colon, infectious vs possible ischemic with its onset shortly after starting meloxicam from pain doctor. still symptomatic only mild improvement in the wbc with still significant bands today that were better yesterday she has only had 2 stools since admission both were reported nonbloody and negative for c. diff stool culture pending continue the flagyl and levaquin consider switch to zosyn or meropenem if febrile or worsening clinically. her acute kidney injury is resolved and hyponatremia improved She is starting to have edema and tolerating clear liquids will stop her iv fluids today her kaushik inhibitor and lasix are still on hold Code(s): K52.9 - NONINFECTIVE GASTROENTERITIS AND COLITIS, UNSPECIFIED (2) Hematochezia Current Visit: Yes Status: Acute Code(s): K92.1 - MELENA (3) Hyponatremia Current Visit: Yes Status: Acute Code(s): E87.1 - HYPO-OSMOLALITY AND HYPONATREMIA (4) Essential hypertension Current Visit: Yes Status: Chronic Code(s): I10 - ESSENTIAL (PRIMARY) HYPERTENSION (5) Anemia Current Visit: Yes Status: Acute Assessment & Plan: worsening likely partially dilutional no active bleeding presently continue tele repeat in am Code(s): D64.9 - ANEMIA, UNSPECIFIED (6) Acute kidney injury Current Visit: Yes Status: Resolved Code(s): N17.9 - ACUTE KIDNEY FAILURE, UNSPECIFIED
[2017-09-23] MEDS: DELTASONE 10 MG PO SCH (09:08)
[2017-09-23] MEDS: SYNTHROID 88 MCG PO SCH (09:08)
[2017-09-23] MEDS: Levofloxacin 500MG/100ML D5W 500 MG/100 ML BAG IV SCH (09:08)
[2017-09-23] MEDS: PROTONIX 40 MG IV IV SCH (09:08)
[2017-09-23] MEDS: NEURONTIN 300 MG PO SCH (21:02)
[2017-09-24] MEDS: PERCOCET TABLET 5/325MG PO PRN ×5 (00:07→21:44)
[2017-09-24] MEDS: FLAGYL 500 MG IVPB 500 MG/100 ML BAG IV SCH ×4 (05:56→23:39)
[2017-09-24 07:02] LABS: Granulocyte Absolute (ANC) 14.02 (1.4-6.9); Hematocrit 28.1 % (35-47); Mean Cell Volume 91.2 fl (78-100); Mean Corpuscular Hemoglobin 29.2 pg (26-32); Platelet Count 283 K/mm3 (150-450); Red Blood Count 3.08 M/mm3 (4.1-5.4); Red Cell Distribution Width 15.2 % (11.5-14.0); White Blood Count 17.4 K/mm3 (4.0-10.5)
[2017-09-24 07:27] LABS: ALBUMIN 2.1 g/dL (3.4-5.0); ALKALINE PHOSPHATASE 46 U/L (46-116); ANION GAP 9.6 MEQ/L (5-15); BLOOD UREA NITROGEN 5 mg/dL (9-20); CHLORIDE 104 mEq/L (98-107); Calcium 7.4 mg/dL (8.5-10.1); Carbon Dioxide 22.9 mEq/L (21-32); Creatinine 1 0.78 mg/dl (0.55-1.30); EST GLOMERULAR FILTRATION RATE > 60 ML/MIN; Glucose 93 MG/DL (70-110); MAGNESIUM 2.1 mg/dL (1.8-2.4); Potassium 3.6 mEq/L (3.5-5.1); SGOT/AST 10 U/L (15-37); SGPT/ALT 7 U/L (12-78); SODIUM 133 mEq/L (136-145); Total Protein 5.3 gm/dL (6.4-8.2)
[2017-09-24] MEDS: SYNTHROID 88 MCG PO SCH (08:31)
[2017-09-24] MEDS: Levofloxacin 500MG/100ML D5W 500 MG/100 ML BAG IV SCH (08:31)
[2017-09-24] MEDS: DELTASONE 10 MG PO SCH (08:31)
[2017-09-24] MEDS: PROTONIX 40 MG IV IV SCH (08:31)
[2017-09-24 09:37] LABS: ANISOCYTOSIS 1+; Lymphocytes 18 % (24-44); Monocyte 6 % (0.0-12.0); Neutrophils 76 % (36.0-66.0); Platelet Estimate NORMAL (NORMAL); Poikilocytosis 1+; Total Cells Counted 100
--- NOTE | 2017-09-24 12:37 | PCM.NOTE ---
Date and Time: 09/24/17 1233 Subjective Assessment: She reports she was able to eat breakfast but has more pain after eating. She reports her pain is in her lower abdomen. She doesn't have much appetite for lunch. She reports needing assistance from the nurses to get up to the bathroom but she does not think she will need rehab before she goes home. Her daughter is at the bedside this morning. She reports feeling a little swollen today and she is unable to take off her rings. She denies any history of CHF. - Review of Systems Constitutional: Weakness Eyes: No Symptoms Ears, Nose, & Throat: No Symptoms Respiratory: No Symptoms Cardiac: No Symptoms Abdominal/Gastrointestinal: Abdominal Pain, Diarrhea, No Nausea, No Vomiting, No Constipation Genitourinary Symptoms: No Symptoms Musculoskeletal: No Symptoms Skin: No Symptoms Objective Exam General Appearance: no apparent distress, alert Neurologic Exam: alert, cooperative, normal mood/affect Skin Exam: normal color, warm, dry Respiratory Exam: normal breath sounds, lungs clear, No crackles/rales, No rhonchi, No wheezing Cardiovascular Exam: regular rate/rhythm, normal heart sounds, No murmur, No friction rub, No gallop Gastrointestinal/Abdomen Exam: soft, normal bowel sounds, tenderness, No distention, No mass, No guarding Extremity Exam: other (trace edema, no c/c) OBJECTIVE DATA Vital Signs: Vital Signs - 24 hr Temp Pulse Resp BP Pulse Ox 09/24/17 07:32 98.7 F 65 18 188/83 95 09/24/17 04:05 98.9 F 58 L 16 146/70 96 09/23/17 23:41 98.4 F 63 18 148/63 97 09/23/17 20:05 98.6 F 69 16 151/67 96 09/23/17 16:00 98.7 F 68 18 185/79 95 Pain Assessment - Last Documented Pain Intensity 0 Pain Scale Used 0-10 Pain Scale Intake and Output: Intake & Output 09/22/17 09/23/17 09/24/17 09/25/17 06:59 06:59 06:59 06:59 Intake Total 2901 780 Output Total 1500 1600 Balance 1401 -820 Weight 72.439 kg 72.303 kg Lab Results: Lab Results-Last 24 Hours 09/24/17 09/24/17 Range/Units 06:00 06:00 WBC 17.4 H (4.0-10.5) K/mm3 RBC 3.08 L (4.1-5.4) M/mm3 Hgb 9.0 L (12.0-16.0) gm/dl Hct 28.1 L (35-47) % MCV 91.2 (78-100) fl MCH 29.2 (26-32) pg MCHC 32.0 (32-36) g/dl RDW 15.2 H (11.5-14.0) % Plt Count 283 (150-450) K/mm3 MPV 9.0 (6-9.5) fl Segmented Neutrophils 76 H (36.0-66.0) % Lymphocytes (Manual) 18 L (24-44) % Monocytes (Manual) 6 (0.0-12.0) % Differential Comment ABNORMAL Platelet Estimate NORMAL (NORMAL) Poikilocytosis 1+ Anisocytosis 1+ Sodium 133 L (136-145) mEq/L Potassium 3.6 (3.5-5.1) mEq/L Chloride 104 (98-107) mEq/L Carbon Dioxide 22.9 (21-32) mEq/L Anion Gap 9.6 (5-15) MEQ/L BUN 5 L (9-20) mg/dL Creatinine 0.78 (0.55-1.30) mg/dl Estimated GFR > 60 ML/MIN Glucose 93 (70-110) MG/DL Calcium 7.4 L (8.5-10.1) mg/dL Magnesium 2.1 (1.8-2.4) mg/dL Total Bilirubin 0.20 (0.2-1.0) mg/dL AST 10 L (15-37) U/L ALT 7 L (12-78) U/L Alkaline Phosphatase 46 (46-116) U/L Serum Total Protein 5.3 L (6.4-8.2) gm/dL Albumin 2.1 L (3.4-5.0) g/dL Assessment/Plan (1) Colitis Current Visit: Yes Status: Acute Assessment & Plan: Her WBC count has improved and she does not have bands today. Continue with current antibiotics. She has been afebrile. Slowly improving. Code(s): K52.9 - NONINFECTIVE GASTROENTERITIS AND COLITIS, UNSPECIFIED (2) Anemia Current Visit: Yes Status: Acute Qualifiers: Anemia type: unspecified type Qualified Code(s): D64.9 - Anemia, unspecified Assessment & Plan: Her Hgb is stable. Continue to monitor. Code(s): D64.9 - ANEMIA, UNSPECIFIED (3) Hyponatremia Current Visit: Yes Status: Acute Assessment & Plan: Stable. Code(s): E87.1 - HYPO-OSMOLALITY AND HYPONATREMIA
[2017-09-24] MEDS: NEURONTIN 300 MG PO SCH (21:43)
[2017-09-25] MEDS ORDERED: Toprol Xl 50 MG PO ONE ×2 (05:01→05:07)
[2017-09-25] MEDS: PERCOCET TABLET 5/325MG PO PRN ×4 (05:44→19:33)
[2017-09-25] MEDS: FLAGYL 500 MG IVPB 500 MG/100 ML BAG IV SCH ×4 (05:45→23:56)
[2017-09-25 06:00] LABS: BASOPHIL % 0.1 % (0.0-0.4); Basophil (Absolute #) 0.02 (0-0.4); Eosinophil % 1.8 % (0.00-5.0); Eosinophil (Absolute #) 0.27 (0-0.5); Granulocyte Absolute (ANC) 11.58 (1.4-6.9); Granulocytes % 76.3 % (36.0-66.0); Hematocrit 30.8 % (35-47); Hemoglobin 9.7 gm/dl (12.0-16.0); Lymphocyte (Absolute #) 1.83 (1.0-4.6); Lymphocytes % 12.1 % (24.0-44.0); Mean Cell Volume 91.1 fl (78-100); Mean Corpuscular Hgb Concent. 31.5 g/dl (32-36); Mean Platelet Volume 8.9 fl (6-9.5); Monocyte (Absolute #) 1.47 (0.0-1.3); Monocytes % 9.7 % (0.0-12.0); Platelet Count 341 K/mm3 (150-450); Red Blood Count 3.38 M/mm3 (4.1-5.4); Red Cell Distribution Width 15.3 % (11.5-14.0); White Blood Count 15.2 K/mm3 (4.0-10.5)
[2017-09-25 06:06] LABS: Mean Corpuscular Hemoglobin 28.6 pg (26-32)
[2017-09-25 06:17] LABS: ANION GAP 10.7 MEQ/L (5-15); BLOOD UREA NITROGEN 4 mg/dL (9-20); CHLORIDE 106 mEq/L (98-107); Calcium 8.1 mg/dL (8.5-10.1); Carbon Dioxide 25.9 mEq/L (21-32); EST GLOMERULAR FILTRATION RATE > 60 ML/MIN; Glucose 92 MG/DL (70-110); Potassium 4.1 mEq/L (3.5-5.1); SODIUM 139 mEq/L (136-145)
[2017-09-25] MEDS: APRESOLINE 20 MG/ML INJ IV PRN ×2 (08:03→20:43)
[2017-09-25] MEDS: DELTASONE 10 MG PO SCH (08:04)
[2017-09-25] MEDS: PROTONIX 40 MG IV IV SCH (08:04)
[2017-09-25] MEDS: SYNTHROID 88 MCG PO SCH (08:04)
[2017-09-25] MEDS: Toprol Xl 50 MG PO SCH (08:06)
[2017-09-25] MEDS: Levofloxacin 500MG/100ML D5W 500 MG/100 ML BAG IV SCH (09:44)
[2017-09-25] MEDS ORDERED: Zestril 20 MG PO ONE (10:36)
[2017-09-25] MEDS ORDERED: Zestril 20 MG ONE (14:48)
--- NOTE | 2017-09-25 14:51 | PCM.NOTE ---
Date and Time: 09/25/17 1446 Subjective Assessment: She continues to have some swelling in her hands. Her blood pressure was high overnight and she received one dose of hydralazine. I have restarted her lisinopril and started her on metoprolol. She reports her abdomen is feeling better. She has been able to eat a little bit. She has been having some pain in her right hip which she reports she always has. - Review of Systems Constitutional: No Symptoms Eyes: No Symptoms Ears, Nose, & Throat: No Symptoms Respiratory: No Symptoms Cardiac: No Symptoms Abdominal/Gastrointestinal: Abdominal Pain Genitourinary Symptoms: No Symptoms Musculoskeletal: No Symptoms Skin: No Symptoms Objective Exam General Appearance: no apparent distress, alert Neurologic Exam: alert, cooperative, normal mood/affect Skin Exam: normal color, warm, dry, No rash Respiratory Exam: normal breath sounds Cardiovascular Exam: regular rate/rhythm, normal heart sounds, No murmur, No friction rub, No gallop Gastrointestinal/Abdomen Exam: soft, other (mild tenderness in lower quadrants) Extremity Exam: other (mild edema, no c/c) OBJECTIVE DATA Vital Signs: Vital Signs - 24 hr Temp Pulse Resp BP Pulse Ox 09/25/17 13:09 97.9 F 80 20 148/68 96 09/25/17 09:56 20 161/67 97 09/25/17 07:18 97.8 F 82 20 192/90 97 09/25/17 04:00 98.5 F 84 18 200/100 95 09/25/17 00:00 98.8 F 63 18 184/73 98 09/24/17 20:10 99.4 F 82 20 190/78 95 09/24/17 16:00 99.5 F 70 18 191/79 95 Pain Assessment - Last Documented Pain Intensity 5 Pain Scale Used 0-10 Pain Scale Intake and Output: Intake & Output 09/23/17 09/24/17 09/25/17 09/26/17 06:59 06:59 06:59 06:59 Intake Total 2901 780 2420 540 Output Total 1500 1600 2200 850 Balance 1401 -820 220 -310 Weight 72.439 kg 72.303 kg 72.575 kg Lab Results: Lab Results-Last 24 Hours 09/25/17 09/25/17 Range/Units 05:23 05:23 WBC 15.2 H (4.0-10.5) K/mm3 RBC 3.38 L (4.1-5.4) M/mm3 Hgb 9.7 L (12.0-16.0) gm/dl Hct 30.8 L (35-47) % MCV 91.1 (78-100) fl MCH 28.6 (26-32) pg MCHC 31.5 L (32-36) g/dl RDW 15.3 H (11.5-14.0) % Plt Count 341 (150-450) K/mm3 MPV 8.9 (6-9.5) fl Gran % 76.3 H (36.0-66.0) % Lymphocytes % 12.1 L (24.0-44.0) % Monocytes % 9.7 (0.0-12.0) % Eosinophils % 1.8 (0.00-5.0) % Basophils % 0.1 (0.0-0.4) % Basophils # 0.02 (0-0.4) Sodium 139 (136-145) mEq/L Potassium 4.1 (3.5-5.1) mEq/L Chloride 106 (98-107) mEq/L Carbon Dioxide 25.9 (21-32) mEq/L Anion Gap 10.7 (5-15) MEQ/L BUN 4 L (9-20) mg/dL Creatinine 0.80 (0.55-1.30) mg/dl Estimated GFR > 60 ML/MIN Glucose 92 (70-110) MG/DL Calcium 8.1 L (8.5-10.1) mg/dL Assessment/Plan (1) Colitis Current Visit: Yes Status: Acute Assessment & Plan: Continue current antibiotics. Slowly improving. Her WBC is better today. Code(s): K52.9 - NONINFECTIVE GASTROENTERITIS AND COLITIS, UNSPECIFIED (2) Anemia Current Visit: Yes Status: Acute Qualifiers: Anemia type: unspecified type Qualified Code(s): D64.9 - Anemia, unspecified Assessment & Plan: Her hgb is stable. Code(s): D64.9 - ANEMIA, UNSPECIFIED (3) Hyponatremia Current Visit: Yes Status: Acute Assessment & Plan: Her sodium is normal now. Code(s): E87.1 - HYPO-OSMOLALITY AND HYPONATREMIA (4) Essential hypertension Current Visit: Yes Status: Chronic Assessment & Plan: Continue home dose of lisinopril and now metoprolol has been started. Blood pressure under better control. Code(s): I10 - ESSENTIAL (PRIMARY) HYPERTENSION (5) Edema Current Visit: Yes Status: Acute Assessment & Plan: She states she wants to wait to start her home furosemide until she has her walker. Code(s): R60.9 - EDEMA, UNSPECIFIED
[2017-09-25] MEDS: NEURONTIN 300 MG PO SCH (19:33)
[2017-09-26] MEDS: PERCOCET TABLET 5/325MG PO PRN (04:04)
[2017-09-26] MEDS: FLAGYL 500 MG IVPB 500 MG/100 ML BAG IV SCH (05:23)
[2017-09-26 08:06] VITALS: BP 169/76; PULSE 76; O2SAT 96
--- NOTE | 2017-09-26 08:22 | PCM.DS ---
Discharge Summary Date of Admission: 09/22/17 08:07 Date of Discharge: 09/26/2017 Admitting Physician: BAKARI HEDRICK Primary Care Provider: BAKARI HEDRICK Allergies Allergies No Known Drug Allergies Allergy (Verified 09/21/17 14:00) Hospital Summary - Hospital Course Hospital Course: She presented with bloody diarrhea and sepsis from acute colitis. Stool testing was negative for C. diff. She was started on nsaid 5 days prior to symptoms starting. She was treated with flagyl and levoquin and rehydration and diet slowly advanced. The bloody diarrhea resolved. She was having still some abdominal pain worse with eating but was improving. She was ambulating short distances on her own and requesting d/c to home. She had previous colonoscopy and barium enema after episode of colitis in 2014 but refuses to have these again due to pain associated with them at that time. - Vitals & Intake/Output Vital Signs: Vital Signs Temperature 99.2 F 09/26/17 08:00 Pulse Rate 76 09/26/17 08:00 Respiratory Rate 18 09/26/17 08:00 Blood Pressure 169/76 09/26/17 08:00 O2 Sat by Pulse Oximetry 96 09/26/17 08:00 Intake & Output: Intake & Output 09/23/17 09/24/17 09/25/17 09/26/17 11:59 11:59 11:59 11:59 Intake Total 2301 780 2420 1360 Output Total 1500 1600 2200 1800 Balance 801 -820 220 -440 Weight 72.439 kg 72.303 kg 72.575 kg 71.668 kg - Lab Result Diagrams: 09/25/17 05:23 09/25/17 05:23 Discharge Exam General Appearance: no apparent distress, alert Neurologic Exam: alert, oriented x 3, cooperative, normal mood/affect, nml cerebellar function, sensation nml, No motor deficits Skin Exam: normal color, warm, dry Eye Exam: PERRL, EOMI, eyes nml inspection Ears, Nose, Throat Exam: normal ENT inspection, pharynx normal, moist mucous membranes Neck Exam: normal inspection, non-tender, supple, full range of motion Respiratory Exam: normal breath sounds, lungs clear, No respiratory distress Cardiovascular Exam: regular rate/rhythm, normal heart sounds Gastrointestinal/Abdomen Exam: soft, normal bowel sounds, tenderness, No distention, No mass, No guarding, No ecchymosis, No rebound Extremity Exam: normal inspection, normal range of motion Back Exam: normal inspection, normal range of motion, No CVA tenderness, No vertebral tenderness Pelvic Exam: deferred Rectal Exam: deferred Final Diagnosis/Problem List - Final Discharge Diagnosis/Problem (1) Colitis Status: Acute (2) Hematochezia Status: Resolved (3) Hyponatremia Status: Resolved (4) Essential hypertension Status: Chronic (5) Anemia Status: Acute (6) Acute kidney injury Status: Resolved (7) Sepsis Status: Resolved - Discharge Discharge Date: 09/26/17 Disposition: Home, Self-Care Condition: Stable Prescriptions: New Metoprolol Succinate 50 mg [Toprol Xl 50 MG] 50 mg PO DAILY #30 tablet.sa Metronidazole 500 mg [Flagyl 500 MG] 500 mg PO TID #21 tablet Levofloxacin [Levofloxacin 500 MG Tablet] 500 mg PO DAILY #7 tablet Continue Lisinopril 20 mg [Zestril 20 MG] 20 mg PO DAILY #0 tablet Prednisone 5 mg [Deltasone 5 mg] 10 mg PO DAILY Potassium Chloride 10 Meq Tab* [Klor Con 10 MEQ] 10 meq PO DAILY Oxybutynin Chloride [Oxybutynin Chloride ER] 10 mg PO DAILY Furosemide 40 mg [Lasix 40 MG] 40 mg PO DAILY Oxycodone HCl/Acetaminophen [Percocet 7.5-325 mg Tablet] 1 each PO Q4-6HPRN PRN PRN Reason: Pain Tizanidine HCl 4 mg PO HS Omeprazole [Prilosec] 20 mg PO DAILY Gabapentin [Neurontin] 300 mg PO HS Levothyroxine Sodium 88 Mcg [Synthroid 88 Mcg] 88 mcg PO DAILY Discontinued Meloxicam [Meloxicam] 7.5 mg PO DAILY Instructions: Ulcerative Colitis, Gastrointestinal Bleeding Follow up with: BAKARI HEDRICK [Primary Care Provider] - 10/03/17 10:00 am Forms: Discharge Instructions, Patient Portal Information
[2017-09-26] MEDS: DELTASONE 10 MG PO SCH (08:26)
[2017-09-26] MEDS: SYNTHROID 88 MCG PO SCH (08:26)
[2017-09-26] MEDS: Toprol Xl 50 MG PO SCH (08:27)
[2017-09-26] MEDS: PROTONIX 40 MG IV IV SCH (08:27)
[2017-09-26] MEDS ORDERED: Zestril 20 MG PO SCH (10:00)
== END 2017-09-26 11:15 | disposition home or self-care (01) | DRG 391 ==
LOC: ED 13:30 → MED SURG 15:50 → OBSVTOIN 09-22 08:07
PROVIDERS: ADMIT Family Medicine; ATTEND Family Medicine
DX: K52.9 Noninfective gastroenteritis and colitis, unspecified (principal); K92.2 Gastrointestinal hemorrhage, unspecified; Z86.14 Personal history of Methicillin resistant Staphylococcus aureus infection; A41.9 Sepsis, unspecified organism; K92.1 Melena; E87.1 Hypo-osmolality and hyponatremia; N17.9 Acute kidney failure, unspecified; K21.9 Gastro-esophageal reflux disease without esophagitis; I10 Essential (primary) hypertension; D64.9 Anemia, unspecified; E03.9 Hypothyroidism, unspecified; M19.90 Unspecified osteoarthritis, unspecified site; M81.0 Age-related osteoporosis without current pathological fracture; Z79.899 Other long term (current) drug therapy
CPT/HCPCS: 36000; 36415; 74022; 74176; 80048; 80053; 81002; 82272; 83605; 83735; 85025; 87493; 93268; 96360; 96374; 96375; 99285; G0008; G0378; J0360; J1956; J2270; J2405; P9612; 90662; A9270-GY

== ENCOUNTER 2017-10-07 15:32 | Observation (INO) | payer MEDICARE, OTHER ==
[2017-10-07] MEDS ORDERED: SUBLIMAZE 100 MCG/2 ML IV ONE (16:10)
[2017-10-07] MEDS ORDERED: SUBLIMAZE 100 MCG/2 ML ONE (16:26)
[2017-10-07 16:35] LABS: BASOPHIL % 0.2 % (0.0-0.4); Basophil (Absolute #) 0.03 (0-0.4); Eosinophil % 0.1 % (0.00-5.0); Eosinophil (Absolute #) 0.01 (0-0.5); Granulocyte Absolute (ANC) 11.93 (1.4-6.9); Granulocytes % 87.6 % (36.0-66.0); Hematocrit 38.5 % (35-47); Hemoglobin 12.1 gm/dl (12.0-16.0); Lymphocyte (Absolute #) 0.85 (1.0-4.6); Lymphocytes % 6.2 % (24.0-44.0); Mean Cell Volume 91.7 fl (78-100); Mean Corpuscular Hemoglobin 28.8 pg (26-32); Mean Corpuscular Hgb Concent. 31.4 g/dl (32-36); Mean Platelet Volume 9.1 fl (6-9.5); Monocyte (Absolute #) 0.81 (0.0-1.3); Monocytes % 5.9 % (0.0-12.0); Platelet Count 544 K/mm3 (150-450); Red Cell Distribution Width 15.9 % (11.5-14.0); White Blood Count 13.6 K/mm3 (4.0-10.5)
[2017-10-07 16:36] LABS: Appearance HAZY (CLEAR); Bilirubin NEGATIVE (NEGATIVE); Blood NEGATIVE Ery/ul (0-5); Glucose NEGATIVE (NEGATIVE); Ketones NEGATIVE (NEGATIVE); Nitrite NEGATIVE (NEGATIVE); Protein,Urine Dip TRACE (Negative); Specific Gravity 1.025 (1.005-1.025); Urobilinogen NORMAL mg/dL (0-1)
--- NOTE | 2017-10-07 16:46 | ERPHSYRPT ---
- History of Present Illness Time Seen by Provider: 10/07/17 16:08 Historian: patient Patient Subjective Stated Complaint: PT REPORTS TAKING A LAXATIVE YESTERDAY DUE TO NO BOWEL MOVEMENT IN 2 DAYS-HAD RESULTS THIS AM-DENIES VOMITING-REPORTS LOW ABD PAIN-DENIES REBOUND TENDERNESS-PT HAS HX OF RECENT GI BLEED Triage Nursing Assessment: PT PALE WARM ET [id number] QUESTIONS APPROPRIATELY-ABD SOFT ET TENDER TO PALP-BOWEL SOUNDS HYPOACTIVE Physician History: CC: abd pain Hx: 77 y/o patient of Dr Georgi Hedrick was admitted a few weeks ago with GI bleeding, sepsis, and colitis. She finished abtx. She has some constipation for which she took a home laxative. She saw Dr Hedrick this AM and was doing fairly well. Came to pain clinic this afternoon and looks worse and had abd pain. She reports the pain is severe. No fever. Chills constant. Trouble with urination. No vomiting. Timing/Duration: today Allergies/Adverse Reactions: No Known Drug Allergies Allergy (Verified 10/07/17 15:44) Home Medications: Furosemide 40 mg [Lasix 40 MG] 40 mg PO DAILY 01/04/17 [History] Oxybutynin Chloride [Oxybutynin Chloride ER] 10 mg PO DAILY 01/04/17 [History] Oxycodone HCl/Acetaminophen [Percocet 7.5-325 mg Tablet] 1 each PO Q4-6HPRN PRN 01/04/17 [History] Potassium Chloride 10 Meq Tab* [Klor Con 10 MEQ] 10 meq PO DAILY 01/04/17 [ History] Prednisone 5 mg [Deltasone 5 mg] 10 mg PO DAILY 01/04/17 [History] Gabapentin [Neurontin] 300 mg PO HS 09/21/17 [History] Levothyroxine Sodium 88 Mcg [Synthroid 88 Mcg] 88 mcg PO DAILY 09/21/17 [ History] Omeprazole [Prilosec] 20 mg PO DAILY 09/21/17 [History] Tizanidine HCl 4 mg PO HS 09/21/17 [History] Meloxicam [Mobic] 7.5 mg PO DAILY 10/06/17 [History] Hx Tetanus, Diphtheria Vaccination/Date Given: No Hx Influenza Vaccination/Date Given: No Hx Pneumococcal Vaccination/Date Given: Yes Immunizations Up to Date: Yes - Review of Systems Constitutional: Chills, Malaise, Weakness, No Fever Eyes: No Symptoms Ears, Nose, & Throat: No Symptoms Respiratory: No Cough, No Dyspnea Cardiac: No Chest Pain Abdominal/Gastrointestinal: Abdominal Pain, Nausea, Constipation, No Vomiting, No Diarrhea Genitourinary Symptoms: Hesitancy, No Dysuria Musculoskeletal: No Back Pain Skin: No Rash Neurological: No Headache All Other Systems: Reviewed and Negative - Past Medical History Pertinent Past Medical History: Yes Neurological History: No Pertinent History ENT History: No Pertinent History Cardiac History: Hypertension Respiratory History: No Pertinent History Endocrine Medical History: Hypothyroidism Musculoskeletal History: Arthritis, Osteoporosis GI Medical History: Gallbladder Disease History: No Pertinent History Psycho-Social History: No Pertinent History Female Reproductive Disorders: No Pertinent History - Past Surgical History Past Surgical History: Yes Neuro Surgical History: No Pertinent History Cardiac: Cardiac Catheterization Respiratory: No Pertinent History Gastrointestinal: Cholecystectomy, Hernia Repair Genitourinary: No Pertinent History Musculoskeletal: Orthopedic Surgery Female Surgical History: Hysterectomy Other Surgical History: right hip fx repair - Social History Smoking Status: Never smoker Exposure to second hand smoke: No Drug Use: none Patient Lives Alone: No - Female History Hx Now: No - Nursing Vital Signs Nursing Vital Signs: Initial Vital Signs Temperature 97.4 F 10/07/17 15:40 Pulse Rate 78 10/07/17 15:40 Respiratory Rate 20 10/07/17 15:40 Blood Pressure 150/88 10/07/17 15:40 O2 Sat by Pulse Oximetry 98 10/07/17 15:40 Pain Scale Pain Intensity 7 - Physical Exam General Appearance: alert, other (frail elderly lady) Eye Exam: PERRL/EOMI Ears, Nose, Throat Exam: normal ENT inspection, moist mucous membranes Neck Exam: normal inspection, non-tender, supple Respiratory Exam: normal breath sounds Cardiovascular Exam: regular rate/rhythm Gastrointestinal/Abdomen Exam: soft, tenderness, guarding, No distention, No mass Back Exam: normal inspection, normal range of motion Extremity Exam: normal inspection, normal range of motion Neurologic Exam: alert, oriented x 3, cooperative Skin Exam: warm, dry, pale, No rash SpO2 Interpretation: normal SpO2: 96 Oxygen Delivery: Room Air - Course Nursing assessment & vital signs reviewed: Yes EKG Interpreted by Me: RATE (82), Sinus Rhythm, NORMAL AXIS, LAFB, NORMAL INTERVALS (QTc 455), Non-specific ST Changes, Other (artifact obscures) Ordered Tests: Active Orders 24 hr Category Date Time Status EKG-ER Only STAT Care 10/07/17 15:41 Active Hodges [Catheter-[place] Hodges] STAT Care 10/07/17 16:08 Active IV Insertion STAT Care 10/07/17 15:41 Active NPO (ED) STAT Care 10/07/17 15:41 Active Rectal Temperature STAT Care 10/07/17 16:07 Active ABDOMEN AND PELVIS W/0 CONTRAS [CT] Stat Exams 10/07/17 16:10 Taken CBC W DIFF Stat Lab 10/07/17 16:20 Completed CMP Stat Lab 10/07/17 16:20 Completed LIPASE Stat Lab 10/07/17 16:20 Completed Lactic Acid Stat Lab 10/07/17 17:28 Completed PROTIME WITH INR Stat Lab 10/07/17 16:20 Completed PTT Stat Lab 10/07/17 16:20 Completed UA W/ MICROSCOPIC Stat Lab 10/07/17 15:41 Completed Medication Summary Generic Name Dose Route Start Last Admin Trade Name Freq PRN Reason Stop Dose Admin Ampicillin Sodium/Sulbactam Sodium 1.5 gm in 100 mls @ 200 mls/hr 10/07/17 18: 08 Unasyn 1.5gm / Nacl 100ml IV 10/07/17 18:37 STAT STA Discontinued Medications Generic Name Dose Route Start Last Admin Trade Name Freq PRN Reason Stop Dose Admin Fentanyl Citrate 25 mcg 10/07/17 16:10 10/07/17 16:27 Sublimaze 100 Mcg/2 Ml IV 10/07/17 16:11 25 mcg STAT ONE Administration Fentanyl Citrate Confirm 10/07/17 16:26 Sublimaze 100 Mcg/2 Ml Administered 10/07/17 16:27 Dose 100 mcg .ROUTE .STK-MED ONE Lab/Rad Data: Laboratory Result Diagrams 10/07/17 16:20 10/07/17 16:20 Laboratory Results 10/07/17 10/07/17 10/07/17 Range/Units 17:28 16:20 16:20 WBC (4.0-10.5) K/mm3 RBC (4.1-5.4) M/mm3 Hgb (12.0-16.0) gm/dl Hct (35-47) % MCV (78-100) fl MCH (26-32) pg MCHC (32-36) g/dl RDW (11.5-14.0) % Plt Count (150-450) K/mm3 MPV (6-9.5) fl Gran % (36.0-66.0) % Lymphocytes % (24.0-44.0) % Monocytes % (0.0-12.0) % Eosinophils % (0.00-5.0) % Basophils % (0.0-0.4) % Basophils # (0-0.4) INR 1.10 (0.8-3.0) APTT 27.6 (25.3-37.0) SECONDS Sodium (136-145) mEq/L Potassium (3.5-5.1) mEq/L Chloride (98-107) mEq/L Carbon Dioxide (21-32) mEq/L Anion Gap (5-15) MEQ/L BUN (9-20) mg/dL Creatinine (0.55-1.30) mg/dl Estimated GFR ML/MIN Glucose (70-110) MG/DL Lactic Acid 0.8 (0.4-2.0) Calcium (8.5-10.1) mg/dL Total Bilirubin (0.2-1.0) mg/dL AST (15-37) U/L ALT (12-78) U/L Alkaline Phosphatase (46-116) U/L Serum Total Protein (6.4-8.2) gm/dL Albumin (3.4-5.0) g/dL Lipase (73-393) U/L Ur Collection Type Urine Color (YELLOW) Urine Appearance (CLEAR) Urine pH (5-6) Ur Specific [place] (1.005-1.025) Urine Protein (Negative) Urine Ketones (NEGATIVE) Urine Blood (0-5) Josse/ul Urine Nitrite (NEGATIVE) Urine Bilirubin (NEGATIVE) Urine Urobilinogen (0-1) mg/dL Ur Leukocyte Esterase (NEGATIVE) Urine Microscopic WBC (0-5) /HPF Ur Epithelial Cells (FEW) /HPF Urine Bacteria (NEGATIVE) /HPF Hyaline Casts (0-2) /LPF Urine Mucus (NEGATIVE) /HPF Urine Culture Reflexed (NO) Urine Glucose (NEGATIVE) mg/dL Specimen Received ABO Group A Rh Factor POSITIVE Antibody Screen NEGATIVE (NEGATIVE) 10/07/17 10/07/17 10/07/17 Range/Units 16:20 16:20 15:41 WBC 13.6 H (4.0-10.5) K/mm3 RBC 4.20 (4.1-5.4) M/mm3 Hgb 12.1 (12.0-16.0) gm/dl Hct 38.5 (35-47) % MCV 91.7 (78-100) fl MCH 28.8 (26-32) pg MCHC 31.4 L (32-36) g/dl RDW 15.9 H (11.5-14.0) % Plt Count 544 H (150-450) K/mm3 MPV 9.1 (6-9.5) fl Gran % 87.6 H (36.0-66.0) % Lymphocytes % 6.2 L (24.0-44.0) % Monocytes % 5.9 (0.0-12.0) % Eosinophils % 0.1 (0.00-5.0) % Basophils % 0.2 (0.0-0.4) % Basophils # 0.03 (0-0.4) INR (0.8-3.0) APTT (25.3-37.0) SECONDS Sodium 136 (136-145) mEq/L Potassium 4.6 (3.5-5.1) mEq/L Chloride 99 (98-107) mEq/L Carbon Dioxide 28.1 (21-32) mEq/L Anion Gap 13.3 (5-15) MEQ/L BUN 34 H (9-20) mg/dL Creatinine 1.99 H (0.55-1.30) mg/dl Estimated GFR 26 ML/MIN Glucose 166 H (70-110) MG/DL Lactic Acid (0.4-2.0) Calcium 10.6 H (8.5-10.1) mg/dL Total Bilirubin 0.30 (0.2-1.0) mg/dL AST 17 (15-37) U/L ALT 16 (12-78) U/L Alkaline Phosphatase 38 L (46-116) U/L Serum Total Protein 7.5 (6.4-8.2) gm/dL Albumin 3.6 (3.4-5.0) g/dL Lipase 234 (73-393) U/L Ur Collection Type CATH Urine Color YELLOW (YELLOW) Urine Appearance HAZY (CLEAR) Urine pH 5.0 (5-6) Ur Specific [place] 1.025 (1.005-1.025) Urine Protein TRACE (Negative) Urine Ketones NEGATIVE (NEGATIVE) Urine Blood NEGATIVE (0-5) Josse/ul Urine Nitrite NEGATIVE (NEGATIVE) Urine Bilirubin NEGATIVE (NEGATIVE) Urine Urobilinogen NORMAL (0-1) mg/dL Ur Leukocyte Esterase NEGATIVE (NEGATIVE) Urine Microscopic WBC 0-2 (0-5) /HPF Ur Epithelial Cells RARE (FEW) /HPF Urine Bacteria RARE (NEGATIVE) /HPF Hyaline Casts 10-25 (0-2) /LPF Urine Mucus SLIGHT (NEGATIVE) /HPF Urine Culture Reflexed NO (NO) Urine Glucose NEGATIVE (NEGATIVE) mg/dL Specimen Received 10/07/17 1518 ABO Group Rh Factor Antibody Screen (NEGATIVE) - Progress Progress Note: 10/07/17 18:08 CT showed resolved colitis. Fecal stasis with constipation. She feels better with meds. Called Dr Quinones for [place] and will place in obs for laxative, IV abtx. She has azotemia wit Julissa. IVF will be given. Counseled pt/family regarding: lab results, diagnosis, need for follow-up, rad results - Departure Time of Disposition: 18:09 Departure Disposition: Observation Clinical Impression: Acute abdominal pain, Acute kidney injury, Constipation Condition: Stable Critical Care Time: No Referrals: BAKARI HEDRICK [Primary Care Provider] -
[2017-10-07 16:59] LABS: ALBUMIN 3.6 g/dL (3.4-5.0); ANION GAP 13.3 MEQ/L (5-15); BILIRUBIN,TOTAL 0.3 mg/dL (0.2-1.0); Calcium 10.6 mg/dL (8.5-10.1); Carbon Dioxide 28.1 mEq/L (21-32); Creatinine 1 1.99 mg/dl (0.55-1.30); Potassium 4.6 mEq/L (3.5-5.1); Total Protein 7.5 gm/dL (6.4-8.2)
[2017-10-07 17:02] LABS: INR 1.1 (0.8-3.0)
[2017-10-07 17:05] LABS: PTT 27.6 SECONDS (25.3-37.0)
[2017-10-07 17:12] LABS: Leukocyte Esterase NEGATIVE (NEGATIVE)
[2017-10-07 17:13] LABS: Bacteria RARE /HPF (NEGATIVE); Epithelial Cells RARE /HPF (FEW); Mucus SLIGHT /HPF (NEGATIVE); WBC 0-2 /HPF (0-5)
[2017-10-07 17:36] LABS: ABO TYPING A; Antibody Screen NEGATIVE (NEGATIVE); RH TYPING POSITIVE
[2017-10-07] MEDS ORDERED: Unasyn 1.5GM / NaCl 100ML 1.5 GM/100 ML IVPB IV STA (18:08)
[2017-10-07] MEDS ORDERED: Sodium Chloride 0.9% 1000 ML 1,000 ML IV SCH (18:15)
[2017-10-07] MEDS ORDERED: Unasyn 1.5GM / NaCl 100ML 1.5 GM/100 ML IVPB ONE (18:39)
[2017-10-07] MEDS ORDERED: TYLENOL 325 MG PO PRN (18:51)
[2017-10-07] MEDS: Sodium Chloride 0.9% 1000 ML 1,000 ML IV SCH (19:49)
[2017-10-07] MEDS: NEURONTIN 300 MG PO SCH (21:12)
[2017-10-07] MEDS: MORPHINE SULFATE 4 MG INJ IV PRN (21:12)
[2017-10-07] MEDS: Toprol Xl 50 MG PO SCH (21:12)
[2017-10-07] MEDS: Pepcid 20 MG VIAL IV SCH (21:12)
[2017-10-07] MEDS ORDERED: Dulcolax 10 MG SUPP PR ONE (22:00)
--- NOTE | 2017-10-07 22:42 | XRAY ---
Indication: Lower abdominal pain. Multiple contiguous axial images obtained through the abdomen and pelvis without contrast as ordered. Comparison: September 21, 2017. Lung bases remain clear with incidental left base calcified granuloma. Heart is not enlarged. Slightly enlarging large hiatal hernia with partial intrathoracic stomach. Noncontrasted stomach and bowel loops appear nonobstructed. There is now marked diffuse scattered colonic fecal debris throughout. Stable sigmoid diverticulosis without diverticulitis. No bowel wall thickening or colitis. Again previous hysterectomy and cholecystectomy. No free fluid/air. Remaining liver, gallbladder, pancreas, spleen, adrenal glands, kidneys, and ureters unremarkable for noncontrast exam. New Hodges catheter empties the bladder. Stable mild area of the calcifications without AAA. Osseous structures intact again with degenerative changes throughout the spine, double curvature scoliosis, and old right proximal femur fracture with partially visualized orthopedic hardware. Stable tiny fatty midline ventral hernia at the level of the pelvis. Impression: 1. New fecal stasis without obstruction. 2. Slightly enlarging large hiatal hernia. 3. Stable sigmoid diverticulosis and fatty ventral hernia. CTDI 11.38
[2017-10-07] MEDS ORDERED: Unasyn 1.5GM Vial ONE (23:07)
[2017-10-07] MEDS: Unasyn 1.5GM / NaCl 100ML 1.5 GM/100 ML IVPB IV SCH (23:36)
[2017-10-08] MEDS ORDERED: Sodium Chloride 0.9% 100 ML IVPB 100 ML IV ONE (04:53)
[2017-10-08] MEDS ORDERED: Unasyn 1.5GM Vial ONE (04:53)
[2017-10-08] MEDS: Unasyn 1.5GM / NaCl 100ML 1.5 GM/100 ML IVPB IV SCH ×3 (05:18→17:13)
[2017-10-08 06:18] LABS: Granulocyte Absolute (ANC) 7.45 (1.4-6.9); Hematocrit 33.1 % (35-47); Hemoglobin 10.5 gm/dl (12.0-16.0); Mean Cell Volume 91.4 fl (78-100); Mean Corpuscular Hgb Concent. 31.7 g/dl (32-36); Mean Platelet Volume 9.2 fl (6-9.5); Platelet Count 446 K/mm3 (150-450); Red Blood Count 3.62 M/mm3 (4.1-5.4); Red Cell Distribution Width 15.7 % (11.5-14.0); White Blood Count 11.4 K/mm3 (4.0-10.5)
[2017-10-08] MEDS: Sodium Chloride 0.9% 1000 ML 1,000 ML IV SCH (06:57)
[2017-10-08] MEDS ORDERED: Sodium Chloride 0.9% 1000 ML 1,000 ML ONE (06:57)
[2017-10-08 07:00] LABS: ALBUMIN 2.9 g/dL (3.4-5.0); BILIRUBIN,TOTAL 0.4 mg/dL (0.2-1.0); Calcium 9.2 mg/dL (8.5-10.1); Carbon Dioxide 26.6 mEq/L (21-32); Creatinine 1 1.36 mg/dl (0.55-1.30); Total Protein 5.8 gm/dL (6.4-8.2)
[2017-10-08 08:05] LABS: BAND 3 % (0.0-2.0); Eosinophil 3 % (0.00-3.0); Lymphocytes 15 % (24-44); Monocyte 14 % (0.0-12.0); Neutrophils 65 % (36.0-66.0); Platelet Estimate NORMAL (NORMAL); Total Cells Counted 100; Toxic Granulation 2+
[2017-10-08] MEDS: Pepcid 20 MG VIAL IV SCH ×2 (09:28→22:28)
--- NOTE | 2017-10-08 12:10 | PCM.HP ---
History of Present Illness - Chief Complaint Chief Complaint: Acute abdominal pain, constipation, acute kidney injury History of Present Illness: is a 77 year old female pt of Dr. Vega who came to ER yesterday c/o abd pain and increasing weakness. She was treated 2 weeks ago for colitis and a GI bleed; went home and was feeling better for about a day then started feeling weaker again. She went to her follow up appointment yesterday then went to pain management where they were concerned about her and sent her to ER. CT abd/pelvis with fecal stasis without obstruction, nothing acute. WBC were 13.6 on admission (11.4 this morning). Pt was started on IV unasyn. Dulcolax suppository was given with very little results. Pt notes she had taken some laxatives at home with what she felt was fairly good result. Pt had trejo catheter placed in ER; it was removed at 0800 with 300cc in the bag. She has not urinated since then, nor has she felt the urge to urinate. - Review of Systems Constitutional: Weakness (fell x 1 at home), No Fever Cardiac: Chest Pain (this morning; much improved after drinking a soda and burping) Abdominal/Gastrointestinal: Abdominal Pain, Constipation, Melena, Appetite Changes, No Hematochezia Musculoskeletal: Other (chronic pain) Psychological: No Anxiety, No Depression, No Suicidal Ideations All Other Systems: Reviewed and Negative Medications & Allergies Home Medications: Home Medication List Lisinopril 20 mg [Zestril 20 MG] 20 mg PO DAILY #0 tablet 06/29/16 [Rx Confirmed 10/07/17] Furosemide 40 mg [Lasix 40 MG] 40 mg PO DAILY 01/04/17 [History Confirmed 10/07/17] Oxybutynin Chloride [Oxybutynin Chloride ER] 10 mg PO DAILY 01/04/17 [History Confirmed 10/07/17] Oxycodone HCl/Acetaminophen [Percocet 7.5-325 mg Tablet] 1 each PO Q4-6HPRN PRN 01/04/17 [History Confirmed 10/07/17] Potassium Chloride 10 Meq Tab* [Klor Con 10 MEQ] 10 meq PO DAILY 01/04/17 [ History Confirmed 10/07/17] Prednisone 5 mg [Deltasone 5 mg] 10 mg PO DAILY 01/04/17 [History Confirmed 10/07/17] Gabapentin [Neurontin] 300 mg PO HS 09/21/17 [History Confirmed 10/07/17] Levothyroxine Sodium 88 Mcg [Synthroid 88 Mcg] 88 mcg PO DAILY 09/21/17 [ History Confirmed 10/07/17] Omeprazole [Prilosec] 20 mg PO DAILY 09/21/17 [History Confirmed 10/07/17] Tizanidine HCl 4 mg PO HS 09/21/17 [History Confirmed 10/07/17] Metoprolol Succinate 50 mg [Toprol Xl 50 MG] 50 mg PO HS 10/07/17 [ History Confirmed 10/07/17] Allergies/Adverse Reactions: Allergies Allergy/AdvReac Type Severity Reaction Status Date / Time No Known Drug Allergies Allergy Verified 10/07/17 15:44 - Past Medical History Past Medical History: Yes Neurological History: No Pertinent History ENT History: No Pertinent History Cardiac History: Hypertension Respiratory History: No Pertinent History Endocrine Medical History: Hypothyroidism Musculoskelatal History: Arthritis, Osteoporosis GI Medical History: Gallbladder Disease History: No Pertinent History Pyscho-Social History: No Pertinent History Reproductive Disorders: No Pertinent History - Female History Are you now?: No - Past Surgical History Past Surgical History: Yes Neuro Surgical History: No Pertinent History Cardiac History: Cardiac Catheterization Respiratory Surgery: No Pertinent History GI Surgical History: Cholecystectomy, Hernia Repair Genitourinary Surgical Hx: No Pertinent History Musculskeletal Surgical Hx: Orthopedic Surgery Female Surgical History: Hysterectomy Other Surgical History: right hip fx repair - Social History Smoking Status: Never smoker Exposure to second hand smoke: No Alcohol: None Drug Use: none - Physical Exam Vital Signs: Vital Signs - 24 hr Temp Pulse Resp BP Pulse Ox 10/08/17 08:00 98.9 F 59 L 18 147/70 94 L 10/08/17 04:00 98.5 F 56 L 16 138/62 95 10/07/17 23:55 98.7 F 56 L 20 139/63 93 L 10/07/17 20:00 98.4 F 66 18 140/63 96 10/07/17 18:12 96 10/07/17 16:28 67 20 96 10/07/17 16:27 98.4 F 10/07/17 15:40 97.4 F 78 20 150/88 98 General Appearance: no apparent distress, alert Neurologic Exam: oriented x 3, cooperative Eye Exam: eyes nml inspection Ears, Nose, Throat Exam: moist mucous membranes Neck Exam: normal inspection, non-tender, No lymphadenopathy, No thyromegaly Respiratory Exam: normal breath sounds, lungs clear, No crackles/rales, No rhonchi, No wheezing Cardiovascular Exam: regular rate/rhythm, normal heart sounds, No murmur Gastrointestinal/Abdomen Exam: soft, normal bowel sounds, tenderness (suprapubic ), No distention, No mass, No guarding, No rebound Back Exam: normal inspection, No CVA tenderness, No rash Extremity Exam: No pedal edema, No swelling Skin Exam: normal color, warm, dry, No rash Results - Labs Lab/Micro Results: Accuchecks Accucheck Value: 204 Accucheck Value: 204 Lab Results-Last 24 Hours 10/07/17 10/08/17 10/08/17 Range/Units Unknown 05:40 05:40 WBC 11.4 H (4.0-10.5) K/mm3 RBC 3.62 L (4.1-5.4) M/mm3 Hgb 10.5 L (12.0-16.0) gm/dl Hct 33.1 L (35-47) % MCV 91.4 (78-100) fl MCH 29.0 (26-32) pg MCHC 31.7 L (32-36) g/dl RDW 15.7 H (11.5-14.0) % Plt Count 446 (150-450) K/mm3 MPV 9.2 (6-9.5) fl Segmented Neutrophils 65 (36.0-66.0) % Band Neutrophils 3 H (0.0-2.0) % Lymphocytes (Manual) 15 L (24-44) % Monocytes (Manual) 14 H (0.0-12.0) % Eosinophils (Manual) 3 (0.00-3.0) % Differential Comment NORMAL Toxic Granulation 2+ Platelet Estimate NORMAL (NORMAL) Sodium 141 (136-145) mEq/L Potassium 4.0 (3.5-5.1) mEq/L Chloride 106 (98-107) mEq/L Carbon Dioxide 26.6 (21-32) mEq/L Anion Gap 12.0 (5-15) MEQ/L BUN 24 H (9-20) mg/dL Creatinine 1.36 H (0.55-1.30) mg/dl Estimated GFR 40 ML/MIN Glucose 86 (70-110) MG/DL Hemoglobin A1c 6.3 H (4.5-6.2) Calcium 9.2 (8.5-10.1) mg/dL Total Bilirubin 0.40 (0.2-1.0) mg/dL AST 14 L (15-37) U/L ALT 12 (12-78) U/L Alkaline Phosphatase 32 L (46-116) U/L Serum Total Protein 5.8 L (6.4-8.2) gm/dL Albumin 2.9 L (3.4-5.0) g/dL Accuchecks Accucheck Value: 204 Accucheck Value: 204 Assessment/Plan (1) Chest pain Current Visit: Yes Status: Acute Qualifiers: Chest pain type: unspecified Qualified Code(s): R07.9 - Chest pain, unspecified Assessment & Plan: Does not sound cardiac, but will do an EKG and troponins x 4 to rule out. Code(s): R07.9 - CHEST PAIN, UNSPECIFIED (2) Acute abdominal pain Current Visit: Yes Status: Acute Assessment & Plan: Recently treated for colitis, so will continue on IV unasyn for now although CT without acute findings. Likely due to constipation. Code(s): R10.9 - UNSPECIFIED ABDOMINAL PAIN (3) Acute kidney injury Current Visit: Yes Status: Acute Assessment & Plan: Her renal function is better this morning. Continue Iv fluids and recheck tomorrow. Code(s): N17.9 - ACUTE KIDNEY FAILURE, UNSPECIFIED (4) Constipation Current Visit: Yes Status: Acute Qualifiers: Constipation type: unspecified constipation type Qualified Code(s): K59.00 - Constipation, unspecified Assessment & Plan: Dulcolax with little results. Will try mag citrate with anti-emetic. Code(s): K59.00 - CONSTIPATION, UNSPECIFIED (5) Anemia Current Visit: No Status: Acute Qualifiers: Anemia type: unspecified type Qualified Code(s): D64.9 - Anemia, unspecified Code(s): D64.9 - ANEMIA, UNSPECIFIED (6) Colitis Current Visit: No Status: Suspected Code(s): K52.9 - NONINFECTIVE GASTROENTERITIS AND COLITIS, UNSPECIFIED (7) GI bleeding Current Visit: No Status: Resolved Assessment & Plan: still c/o melena - check hemoccult stool. Code(s): K92.2 - GASTROINTESTINAL HEMORRHAGE, UNSPECIFIED (8) Essential hypertension Current Visit: No Status: Chronic Assessment & Plan: stable Code(s): I10 - ESSENTIAL (PRIMARY) HYPERTENSION
[2017-10-08] MEDS ORDERED: CITROMA 296 ML PO ONE (12:17)
[2017-10-08] MEDS ORDERED: PHENERGAN 25 MG PO PRN (12:18)
[2017-10-08] MEDS ORDERED: Zofran 4 MG/2 ML VIAL IV PRN (13:42)
[2017-10-08] MEDS ORDERED: NON-FORMULARY ITEM (Oxycodone Hcl/Acetaminophen [Percocet 7.5-325 Mg Tablet] 1 EACH) PO PRN (14:29)
[2017-10-08] MEDS: DELTASONE 5 MG PO SCH (16:16)
[2017-10-08] MEDS: Klor Con 10 MEQ PO SCH (16:17)
[2017-10-08] MEDS: SYNTHROID 88 MCG PO SCH (16:18)
[2017-10-08] MEDS: Protonix 40MG Tablet PO SCH (16:19)
[2017-10-08] MEDS: Zestril 20 MG PO SCH (16:21)
[2017-10-08] MEDS: PERCOCET TABLET 5/325MG PO PRN (19:32)
[2017-10-08] MEDS ORDERED: Zanaflex 4 MG PO SCH (22:00)
[2017-10-08] MEDS: Toprol Xl 50 MG PO SCH (22:27)
[2017-10-08] MEDS: NEURONTIN 300 MG PO SCH (22:27)
[2017-10-09] MEDS: Unasyn 1.5GM / NaCl 100ML 1.5 GM/100 ML IVPB IV SCH ×3 (01:01→12:45)
[2017-10-09 05:48] LABS: BASOPHIL % 0.4 % (0.0-0.4); Basophil (Absolute #) 0.04 (0-0.4); Eosinophil % 1.8 % (0.00-5.0); Eosinophil (Absolute #) 0.17 (0-0.5); Granulocyte Absolute (ANC) 6.73 (1.4-6.9); Granulocytes % 72.5 % (36.0-66.0); Hematocrit 27.9 % (35-47); Hemoglobin 8.7 gm/dl (12.0-16.0); Lymphocyte (Absolute #) 1.22 (1.0-4.6); Lymphocytes % 13.1 % (24.0-44.0); Mean Cell Volume 93.3 fl (78-100); Mean Corpuscular Hgb Concent. 31.2 g/dl (32-36); Mean Platelet Volume 9.1 fl (6-9.5); Monocyte (Absolute #) 1.13 (0.0-1.3); Monocytes % 12.2 % (0.0-12.0); Platelet Count 333 K/mm3 (150-450); Red Blood Count 2.99 M/mm3 (4.1-5.4); Red Cell Distribution Width 15.8 % (11.5-14.0); White Blood Count 9.3 K/mm3 (4.0-10.5)
[2017-10-09 06:28] LABS: ALBUMIN 2.2 g/dL (3.4-5.0); ANION GAP 8.4 MEQ/L (5-15); BILIRUBIN,TOTAL 0.3 mg/dL (0.2-1.0); Calcium 7.3 mg/dL (8.5-10.1); Carbon Dioxide 26.4 mEq/L (21-32); Creatinine 1 0.97 mg/dl (0.55-1.30); Potassium 4.3 mEq/L (3.5-5.1); Total Protein 5.1 gm/dL (6.4-8.2)
[2017-10-09] MEDS: MORPHINE SULFATE 4 MG INJ IV PRN (08:47)
[2017-10-09] MEDS: SYNTHROID 88 MCG PO SCH (08:48)
[2017-10-09] MEDS: Klor Con 10 MEQ PO SCH (08:48)
[2017-10-09] MEDS: Protonix 40MG Tablet PO SCH (08:48)
[2017-10-09] MEDS: DELTASONE 5 MG PO SCH (08:48)
[2017-10-09] MEDS: Pepcid 20 MG VIAL IV SCH (08:49)
[2017-10-09] MEDS: Zestril 20 MG PO SCH (08:49)
[2017-10-09] MEDS: PERCOCET TABLET 5/325MG PO PRN (08:55)
[2017-10-09 12:38] VITALS: O2SAT 94
--- NOTE | 2017-10-09 13:50 | PCM.NOTE ---
Date and Time: 10/09/17 1345 Subjective Assessment: No abd pain. Has not been able to have a bowel movement despite Mg Citrate. Pamela po well (CLD). - Review of Systems Constitutional: No Fever Abdominal/Gastrointestinal: Constipation Objective Exam General Appearance: no apparent distress, alert Neurologic Exam: oriented x 3, cooperative Skin Exam: normal color, warm, dry, No rash Respiratory Exam: normal breath sounds, lungs clear, No crackles/rales, No rhonchi, No wheezing Cardiovascular Exam: regular rate/rhythm, normal heart sounds, No murmur Gastrointestinal/Abdomen Exam: soft, normal bowel sounds, No tenderness, No distention, No mass, No guarding, No rebound Extremity Exam: No pedal edema, No swelling OBJECTIVE DATA Vital Signs: Vital Signs - 24 hr Temp Pulse Resp BP Pulse Ox 10/09/17 13:14 143/78 10/09/17 12:00 98.3 F 61 18 179/71 94 L 10/09/17 08:00 98.4 F 52 L 18 151/67 95 10/09/17 03:40 98.4 F 58 L 18 136/63 95 10/09/17 00:14 98.9 F 73 16 128/72 94 L 10/08/17 20:00 99.5 F 75 18 148/65 92 L 10/08/17 16:00 98.1 F 68 20 142/73 97 Pain Assessment - Last Documented Pain Intensity 8 Pain Scale Used 0-10 Pain Scale Intake and Output: Intake & Output 10/07/17 10/08/17 10/09/17 10/10/17 11:59 11:59 11:59 11:59 Intake Total 208 5621 480 Output Total 900 2500 Balance 1187 3147 480 Weight 67.2 kg Lab Results: Lab Results-Last 24 Hours 10/08/17 10/08/17 10/08/17 Range/Units 15:15 18:30 21:30 WBC (4.0-10.5) K/mm3 RBC (4.1-5.4) M/mm3 Hgb (12.0-16.0) gm/dl Hct (35-47) % MCV (78-100) fl MCH (26-32) pg MCHC (32-36) g/dl RDW (11.5-14.0) % Plt Count (150-450) K/mm3 MPV (6-9.5) fl Gran % (36.0-66.0) % Lymphocytes % (24.0-44.0) % Monocytes % (0.0-12.0) % Eosinophils % (0.00-5.0) % Basophils % (0.0-0.4) % Basophils # (0-0.4) Sodium (136-145) mEq/L Potassium (3.5-5.1) mEq/L Chloride (98-107) mEq/L Carbon Dioxide (21-32) mEq/L Anion Gap (5-15) MEQ/L BUN (9-20) mg/dL Creatinine (0.55-1.30) mg/dl Estimated GFR ML/MIN Glucose (70-110) MG/DL Calcium (8.5-10.1) mg/dL Total Bilirubin (0.2-1.0) mg/dL AST (15-37) U/L ALT (12-78) U/L Alkaline Phosphatase (46-116) U/L Troponin I < 0.017 < 0.017 < 0.017 (0.000-0.056) ng/ml Serum Total Protein (6.4-8.2) gm/dL Albumin (3.4-5.0) g/dL 10/09/17 10/09/17 Range/Units 05:35 05:35 WBC 9.3 (4.0-10.5) K/mm3 RBC 2.99 L (4.1-5.4) M/mm3 Hgb 8.7 L (12.0-16.0) gm/dl Hct 27.9 L (35-47) % MCV 93.3 (78-100) fl MCH 29.0 (26-32) pg MCHC 31.2 L (32-36) g/dl RDW 15.8 H (11.5-14.0) % Plt Count 333 (150-450) K/mm3 MPV 9.1 (6-9.5) fl Gran % 72.5 H (36.0-66.0) % Lymphocytes % 13.1 L (24.0-44.0) % Monocytes % 12.2 H (0.0-12.0) % Eosinophils % 1.8 (0.00-5.0) % Basophils % 0.4 (0.0-0.4) % Basophils # 0.04 (0-0.4) Sodium 142 (136-145) mEq/L Potassium 4.3 (3.5-5.1) mEq/L Chloride 111 H (98-107) mEq/L Carbon Dioxide 26.4 (21-32) mEq/L Anion Gap 8.4 (5-15) MEQ/L BUN 13 (9-20) mg/dL Creatinine 0.97 (0.55-1.30) mg/dl Estimated GFR 59 ML/MIN Glucose 97 (70-110) MG/DL Calcium 7.3 L (8.5-10.1) mg/dL Total Bilirubin 0.30 (0.2-1.0) mg/dL AST 12 L (15-37) U/L ALT 10 L (12-78) U/L Alkaline Phosphatase 27 L (46-116) U/L Troponin I (0.000-0.056) ng/ml Serum Total Protein 5.1 L (6.4-8.2) gm/dL Albumin 2.2 L (3.4-5.0) g/dL Assessment/Plan (1) Colitis Current Visit: No Status: Suspected Assessment & Plan: improved on IV Unasyn. Advancing diet to bland. Code(s): K52.9 - NONINFECTIVE GASTROENTERITIS AND COLITIS, UNSPECIFIED (2) Acute kidney injury Current Visit: Yes Status: Resolved Assessment & Plan: Resolved; Cr 0.97 down from 1.36 yesterday. Code(s): N17.9 - ACUTE KIDNEY FAILURE, UNSPECIFIED (3) Constipation Current Visit: Yes Status: Acute Qualifiers: Constipation type: unspecified constipation type Qualified Code(s): K59.00 - Constipation, unspecified Assessment & Plan: Persistent. Will try Go Lytely and possibly an enema today. Code(s): K59.00 - CONSTIPATION, UNSPECIFIED (4) Anemia Current Visit: No Status: Acute Qualifiers: Anemia type: unspecified type Qualified Code(s): D64.9 - Anemia, unspecified Assessment & Plan: Hgb 8.7; with hx GI bleeding. Will recheck Hgb outpatient. Code(s): D64.9 - ANEMIA, UNSPECIFIED (5) GI bleeding Current Visit: No Status: Resolved Code(s): K92.2 - GASTROINTESTINAL HEMORRHAGE, UNSPECIFIED (6) Essential hypertension Current Visit: No Status: Chronic Assessment & Plan: One BP was 179/71, but on manual recheck latera was 143/78. Code(s): I10 - ESSENTIAL (PRIMARY) HYPERTENSION (7) Chest pain Current Visit: Yes Status: Resolved Qualifiers: Chest pain type: unspecified Qualified Code(s): R07.9 - Chest pain, unspecified Code(s): R07.9 - CHEST PAIN, UNSPECIFIED
[2017-10-09] MEDS ORDERED: Golytely Solution 4000 ML PO ONE (14:00)
[2017-10-09] MEDS: Sodium Chloride 0.9% 1000 ML 1,000 ML IV SCH (14:09)
[2017-10-09 16:51] VITALS: BP 136/100; PULSE 77
--- NOTE | 2017-10-09 18:02 | PCM.DS ---
Discharge Summary Date of Admission: 10/07/17 18:47 Admitting Physician: BAKARI HEDRICK Primary Care Provider: BAKARI HEDRICK Allergies Allergies No Known Drug Allergies Allergy (Verified 10/07/17 15:44) Hospital Summary - Hospital Course Hospital Course: Pt is 77 yo female [address] sees Dr. Hedrick, was admitted with abdominal pain and constipation. Two weeks ago she was treated for colitis and a GI bleed. She felt better briefly but has not been feeling well recently. When she was admitted, her WBC were 13.6 with 87% granulocytes so she was placed on IV unasyn to cover colitis (today WBC are wnl). CT abd/pelvis showed new fecal stasis without obstruction and enlarging hiatal hernia. She had some chest pain the morning after admission, but EKG was negative and troponins x 4 were negative. She tried a dulcolax suppository and mag citrate without any relief of the constipation. She took golytely with relief. She states she is ready to go home. She has been tolerating po well. On admission her Cr was 1.99 - now 0.97. Hgb initially 12.1 and 8.7 on discharge. No sign of active bleeding. - Vitals & Intake/Output Vital Signs: Vital Signs Temperature 98.0 F 10/09/17 16:50 Pulse Rate 77 10/09/17 16:50 Respiratory Rate 18 10/09/17 16:50 Blood Pressure 136/100 10/09/17 16:50 O2 Sat by Pulse Oximetry 94 L 10/09/17 16:50 Intake & Output: Intake & Output 10/07/17 10/08/17 10/09/17 10/10/17 11:59 11:59 11:59 11:59 Intake Total 2087 5647 720 Output Total 900 2500 Balance 1187 3147 720 Weight 67.2 kg 72.2 kg - Lab Result Diagrams: 10/09/17 05:35 10/09/17 05:35 Lab Results-Last 24 Hrs: Lab Results-Last 24 Hours 10/08/17 10/08/17 10/09/17 Range/Units 18:30 21:30 05:35 WBC 9.3 (4.0-10.5) K/mm3 RBC 2.99 L (4.1-5.4) M/mm3 Hgb 8.7 L (12.0-16.0) gm/dl Hct 27.9 L (35-47) % MCV 93.3 (78-100) fl MCH 29.0 (26-32) pg MCHC 31.2 L (32-36) g/dl RDW 15.8 H (11.5-14.0) % Plt Count 333 (150-450) K/mm3 MPV 9.1 (6-9.5) fl Gran % 72.5 H (36.0-66.0) % Lymphocytes % 13.1 L (24.0-44.0) % Monocytes % 12.2 H (0.0-12.0) % Eosinophils % 1.8 (0.00-5.0) % Basophils % 0.4 (0.0-0.4) % Basophils # 0.04 (0-0.4) Sodium (136-145) mEq/L Potassium (3.5-5.1) mEq/L Chloride (98-107) mEq/L Carbon Dioxide (21-32) mEq/L Anion Gap (5-15) MEQ/L BUN (9-20) mg/dL Creatinine (0.55-1.30) mg/dl Estimated GFR ML/MIN Glucose (70-110) MG/DL Calcium (8.5-10.1) mg/dL Total Bilirubin (0.2-1.0) mg/dL AST (15-37) U/L ALT (12-78) U/L Alkaline Phosphatase (46-116) U/L Troponin I < 0.017 < 0.017 (0.000-0.056) ng/ml Serum Total Protein (6.4-8.2) gm/dL Albumin (3.4-5.0) g/dL 10/09/17 Range/Units 05:35 WBC (4.0-10.5) K/mm3 RBC (4.1-5.4) M/mm3 Hgb (12.0-16.0) gm/dl Hct (35-47) % MCV (78-100) fl MCH (26-32) pg MCHC (32-36) g/dl RDW (11.5-14.0) % Plt Count (150-450) K/mm3 MPV (6-9.5) fl Gran % (36.0-66.0) % Lymphocytes % (24.0-44.0) % Monocytes % (0.0-12.0) % Eosinophils % (0.00-5.0) % Basophils % (0.0-0.4) % Basophils # (0-0.4) Sodium 142 (136-145) mEq/L Potassium 4.3 (3.5-5.1) mEq/L Chloride 111 H (98-107) mEq/L Carbon Dioxide 26.4 (21-32) mEq/L Anion Gap 8.4 (5-15) MEQ/L BUN 13 (9-20) mg/dL Creatinine 0.97 (0.55-1.30) mg/dl Estimated GFR 59 ML/MIN Glucose 97 (70-110) MG/DL Calcium 7.3 L (8.5-10.1) mg/dL Total Bilirubin 0.30 (0.2-1.0) mg/dL AST 12 L (15-37) U/L ALT 10 L (12-78) U/L Alkaline Phosphatase 27 L (46-116) U/L Troponin I (0.000-0.056) ng/ml Serum Total Protein 5.1 L (6.4-8.2) gm/dL Albumin 2.2 L (3.4-5.0) g/dL - Procedures and Test Procedures and Tests throughout Hospitalization: Therapy Orders & Screens 10/08/17 12:16 EKG STAT Comment: Diagnosis: Acute abdominal pain, constipation, acute kidney injury Discharge Exam General Appearance: no apparent distress, alert, other (exam done earlier today) Neurologic Exam: oriented x 3, cooperative Skin Exam: normal color, warm, dry, No rash Eye Exam: eyes nml inspection Ears, Nose, Throat Exam: moist mucous membranes Respiratory Exam: normal breath sounds, lungs clear, No crackles/rales, No rhonchi, No wheezing Cardiovascular Exam: regular rate/rhythm, normal heart sounds, No murmur Gastrointestinal/Abdomen Exam: soft, normal bowel sounds, No tenderness, No distention, No mass, No guarding, No rebound Extremity Exam: normal inspection, No pedal edema, No swelling Final Diagnosis/Problem List - Final Discharge Diagnosis/Problem (1) Colitis Current Visit: No Status: Suspected Assessment & Plan: Home on po augmentin. F/u with Dr. Hedrick this week. (2) Acute kidney injury Current Visit: Yes Status: Resolved Assessment & Plan: resolved, Cr 0.97 today. (3) Constipation Current Visit: Yes Status: Acute Assessment & Plan: Good results from the [employer] today. (4) Anemia Current Visit: No Status: Acute Assessment & Plan: Could be dilutional. Recheck outpatient in 2-3 days. (5) GI bleeding Current Visit: No Status: Resolved Assessment & Plan: History of, recently. No sign of this currently. (6) Essential hypertension Current Visit: No Status: Chronic Assessment & Plan: Some bp in 120s but occ to 170s here - do not want to risk hypotension so will not add any meds. (7) Chest pain Current Visit: Yes Status: Resolved - Discharge Disposition: Home, Self-Care Condition: Stable Prescriptions: New Amoxicillin/Potassium Clav [Augmentin 875-125 Tablet] 875 mg PO BID #20 tablet Continue Lisinopril 20 mg [Zestril 20 MG] 20 mg PO DAILY #0 tablet Prednisone 5 mg [Deltasone 5 mg] 10 mg PO DAILY Potassium Chloride 10 Meq Tab* [Klor Con 10 MEQ] 10 meq PO DAILY Oxybutynin Chloride [Oxybutynin Chloride ER] 10 mg PO DAILY Furosemide 40 mg [Lasix 40 MG] 40 mg PO DAILY Oxycodone HCl/Acetaminophen [Percocet 7.5-325 mg Tablet] 1 each PO Q4-6HPRN PRN PRN Reason: Pain Tizanidine HCl 4 mg PO HS Omeprazole [Prilosec] 20 mg PO DAILY Gabapentin [Neurontin] 300 mg PO HS Levothyroxine Sodium 88 Mcg [Synthroid 88 Mcg] 88 mcg PO DAILY Metoprolol Succinate 50 mg [Toprol Xl 50 MG] 50 mg PO HS Follow up with: BAKARI HEDRICK [Primary Care Provider] -
== END 2017-10-09 18:45 | disposition home or self-care (01) ==
LOC: ED 15:32 → MED SURG 18:47
PROVIDERS: ADMIT Family Medicine; ATTEND Family Medicine
DX: K52.9 Noninfective gastroenteritis and colitis, unspecified (principal); N17.9 Acute kidney failure, unspecified; K59.00 Constipation, unspecified; I10 Essential (primary) hypertension; E03.9 Hypothyroidism, unspecified; D64.9 Anemia, unspecified; K92.2 Gastrointestinal hemorrhage, unspecified; R07.9 Chest pain, unspecified; M81.0 Age-related osteoporosis without current pathological fracture; M19.90 Unspecified osteoarthritis, unspecified site; Z79.899 Other long term (current) drug therapy
CPT/HCPCS: 36000; 36415; 51702; 74176; 80053; 81000; 82962; 83036; 83605; 83690; 84484; 85025; 85610; 85730; 86850; 86900; 86901; 93005; 96365; 96374; 99285; G0378; J0295; J2270; J2405; J3010; A9270-GY; J7506

== ENCOUNTER 2019-05-19 18:52 | Observation (INO) | payer MEDICARE, OTHER ==
[2019-05-19] MEDS: Sodium Chloride 0.9% 1000 ML 1,000 ML IV SCH (20:05)
[2019-05-19] MEDS ORDERED: Oxy-IR 5 MG PO PRN (20:55)
[2019-05-19] MEDS: PERCOCET TABLET 5/325MG PO PRN (21:19)
[2019-05-19] MEDS: Colace 100 MG PO SCH (21:28)
[2019-05-20] MEDS: PERCOCET TABLET 5/325MG PO PRN ×5 (03:46→23:37)
[2019-05-20 04:47] LABS: Hemoglobin 10.3 gm/dl (12.0-16.0); Mean Cell Volume 93.6 fl (78-100); Mean Corpuscular Hemoglobin 30.1 pg (26-32); Mean Corpuscular Hgb Concent. 32.2 g/dl (32-36); Mean Platelet Volume 9.6 fl (6-9.5); Platelet Count 266 K/mm3 (150-450); Red Blood Count 3.42 M/mm3 (4.1-5.4); Red Cell Distribution Width 13.3 % (11.5-14.0); White Blood Count 5.8 K/mm3 (4.0-10.5)
[2019-05-20 04:59] LABS: ALBUMIN 3.3 g/dL (3.5-5.0); ANION GAP 10.5 MEQ/L (5-15); BILIRUBIN,TOTAL 0.4 mg/dL (0.2-1.3); Calcium 9.5 mg/dL (8.4-10.2); Creatinine 1 1.3 mg/dL (0.52-1.04); Potassium 4.5 mmol/L (3.5-5.1); Total Protein 6.3 g/dL (6.3-8.2)
[2019-05-20] MEDS: Sodium Chloride 0.9% 1000 ML 1,000 ML IV SCH (05:47)
[2019-05-20] MEDS ORDERED: NORVASC 5 MG PO ONE (10:51)
[2019-05-20] MEDS ORDERED: Cymbalta 30 MG Capsule PO SCH (11:00)
[2019-05-20] MEDS: Colace 100 MG PO SCH ×2 (11:17→21:32)
[2019-05-20] MEDS: SYNTHROID 75 MCG PO SCH (11:18)
--- NOTE | 2019-05-20 11:47 | PCM.NOTE ---
Date and Time: 05/20/19 1142 Subjective Assessment: She reports that she still has some cramps in her legs and feels very unsteady when she walks and is afraid she will fall. She notes some swelling of her right ankle again. She has used andrea hose in the past at home. Her 2 sons are at the bedside. - Review of Systems Constitutional: Weakness Eyes: No Symptoms Ears, Nose, & Throat: No Symptoms Respiratory: No Symptoms Cardiac: No Symptoms Abdominal/Gastrointestinal: No Symptoms Genitourinary Symptoms: No Symptoms Musculoskeletal: Myalgias, Other (swelling of her ankles) Objective Exam General Appearance: no apparent distress Neurologic Exam: alert, cooperative, nml station & gait Skin Exam: normal color, warm, dry, No rash Respiratory Exam: normal breath sounds, lungs clear, No crackles/rales, No rhonchi, No wheezing Cardiovascular Exam: regular rate/rhythm, normal heart sounds, No murmur, No friction rub, No gallop Gastrointestinal/Abdomen Exam: soft, normal bowel sounds, No tenderness, No distention, No mass Extremity Exam: other (trace swelling around right ankle, no c/c bilat) OBJECTIVE DATA Vital Signs: Vital Signs - 24 hr Temp Pulse Resp BP Pulse Ox 05/20/19 07:41 97.8 F 58 L 18 151/65 96 05/20/19 04:01 98.1 F 56 L 17 187/76 98 05/19/19 23:36 98.1 F 54 L 16 140/63 96 05/19/19 20:25 98.7 F 64 18 116/58 05/19/19 20:11 98.7 F 64 18 116/58 95 Pain Assessment - Last Documented Pain Intensity 8 Pain Scale Used 0-10 Pain Scale Intake and Output: Intake & Output 05/18/19 05/19/19 05/20/19 05/21/19 06:59 06:59 06:59 06:59 Intake Total 956 240 Output Total 300 550 Balance 656 -310 Weight 66.8 kg Lab Results: Lab Results-Last 24 Hours 05/20/19 05/20/19 05/20/19 Range/Units 04:45 04:45 04:45 WBC 5.8 (4.0-10.5) K/mm3 RBC 3.42 L (4.1-5.4) M/mm3 Hgb 10.3 L (12.0-16.0) gm/dl Hct 32.0 L (35-47) % MCV 93.6 (78-100) fl MCH 30.1 (26-32) pg MCHC 32.2 (32-36) g/dl RDW 13.3 (11.5-14.0) % Plt Count 266 (150-450) K/mm3 MPV 9.6 H (6-9.5) fl Sodium 135 L (137-145) mmol/L Potassium 4.5 (3.5-5.1) mmol/L Chloride 99 (98-107) mmol/L Carbon Dioxide 31 H (22-30) mmol/L Anion Gap 10.5 (5-15) MEQ/L BUN 34 H (7-17) mg/dL Creatinine 1.30 H (0.52-1.04) mg/dL Estimated GFR 42.2 ML/MIN Glucose 77 (74-106) mg/dL Calcium 9.5 (8.4-10.2) mg/dL Total Bilirubin 0.40 (0.2-1.3) mg/dL AST 20 (14-36) U/L ALT 11 (0-35) U/L Alkaline Phosphatase 102 (38-126) U/L Serum Total Protein 6.3 (6.3-8.2) g/dL Albumin 3.3 L (3.5-5.0) g/dL 25-OH Vitamin D Total 21.9 L (30-100) ng/mL Assessment/Plan (1) Mild dehydration Current Visit: Yes Status: Acute Assessment & Plan: Resolved with IV fluids; electrolytes look better today. Will stop IV fluids and continue with oral intake. Code(s): E86.0 - DEHYDRATION (2) Hyperkalemia Current Visit: Yes Status: Acute Assessment & Plan: Resolved today. I am going to stop her JOSSIE inhibitor and use a different medication for her blood pressure. Code(s): E87.5 - HYPERKALEMIA (3) Chronic right hip pain Current Visit: Yes Status: Acute Assessment & Plan: Continue home dose of percocet. Discussed that she should not take NSAIDS due to her kidneys not working normally. Code(s): M25.551 - PAIN IN RIGHT HIP; G89.29 - OTHER CHRONIC PAIN (4) Chronic kidney disease, stage 3 Current Visit: Yes Status: Acute Assessment & Plan: Recommended she avoid all NSAIDS. Will try cymbalta low dose every other day to try to help with chronic pain. Code(s): N18.3 - CHRONIC KIDNEY DISEASE, STAGE 3 (MODERATE) (5) Hypertension Current Visit: Yes Status: Acute Assessment & Plan: Continue metoprolol. Stop lisinopril due to hyperkalemia. Start amlodipine 5 mg po daily. Code(s): I10 - ESSENTIAL (PRIMARY) HYPERTENSION (6) Lower extremity edema Current Visit: Yes Status: Acute Assessment & Plan: Start andrea hose. Code(s): R60.0 - LOCALIZED EDEMA (7) Gait instability Current Visit: Yes Status: Acute Assessment & Plan: Will ask for PT consult and discharge planning. Code(s): R26.81 - UNSTEADINESS ON FEET
[2019-05-20] MEDS ORDERED: Toprol Xl 50 MG PO SCH (22:00)
[2019-05-21 05:03] LABS: Hematocrit 31.5 % (35-47); Mean Cell Volume 94.3 fl (78-100); Mean Corpuscular Hemoglobin 29.9 pg (26-32); Mean Corpuscular Hgb Concent. 31.7 g/dl (32-36); Mean Platelet Volume 9.3 fl (6-9.5); Platelet Count 273 K/mm3 (150-450); Red Blood Count 3.34 M/mm3 (4.1-5.4); Red Cell Distribution Width 13.3 % (11.5-14.0); White Blood Count 5.1 K/mm3 (4.0-10.5)
[2019-05-21 05:12] LABS: ANION GAP 8.7 MEQ/L (5-15); Calcium 9.4 mg/dL (8.4-10.2); Creatinine 1 1.09 mg/dL (0.52-1.04); Potassium 4.2 mmol/L (3.5-5.1)
[2019-05-21] MEDS: PERCOCET TABLET 5/325MG PO PRN ×2 (06:44→13:07)
[2019-05-21] MEDS ORDERED: NORVASC 5 MG PO SCH (10:00)
[2019-05-21] MEDS ORDERED: ENOXAPARIN SODIUM SQ SCH (10:00)
[2019-05-21] MEDS: SYNTHROID 75 MCG PO SCH (10:18)
[2019-05-21] MEDS: Colace 100 MG PO SCH (10:18)
[2019-05-21 11:51] VITALS: BP 168/72; PULSE 57; O2SAT 94
--- NOTE | 2019-05-21 14:00 | PCM.DS ---
Discharge Summary Date of Admission: 05/19/19 18:52 Admitting Physician: BO HERNANDEZ Primary Care Provider: STEVE RUDOLPH Allergies Allergies No Known Drug Allergies Allergy (Verified 10/07/17 15:44) Hospital Summary - Hospital Course Hospital Course: Patient was admitted with weakness and difficulty ambulating due to cramp type pain in her calves. 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 - Vitals & Intake/Output Vital Signs: Vital Signs Temperature 97.0 F 05/21/19 11:50 Pulse Rate 57 L 05/21/19 11:50 Respiratory Rate 20 05/21/19 11:50 Blood Pressure 168/72 05/21/19 11:50 O2 Sat by Pulse Oximetry 94 L 05/21/19 11:50 Intake & Output: Intake & Output 05/19/19 05/20/19 05/21/19 05/22/19 11:59 11:59 11:59 11:59 Intake Total 1196 720 Output Total 850 2400 Balance 346 -1680 Weight 66.8 kg 67.9 kg - Lab Result Diagrams: 05/21/19 05:00 05/21/19 05:00 Lab Results-Last 24 Hrs: Lab Results-Last 24 Hours 05/20/19 05/21/19 05/21/19 Range/Units 04:45 05:00 05:00 WBC 5.1 (4.0-10.5) K/mm3 RBC 3.34 L (4.1-5.4) M/mm3 Hgb 10.0 L (12.0-16.0) gm/dl Hct 31.5 L (35-47) % MCV 94.3 (78-100) fl MCH 29.9 (26-32) pg MCHC 31.7 L (32-36) g/dl RDW 13.3 (11.5-14.0) % Plt Count 273 (150-450) K/mm3 MPV 9.3 (6-9.5) fl Sodium 137 (137-145) mmol/L Potassium 4.2 (3.5-5.1) mmol/L Chloride 103 (98-107) mmol/L Carbon Dioxide 30 (22-30) mmol/L Anion Gap 8.7 (5-15) MEQ/L BUN 22 H (7-17) mg/dL Creatinine 1.09 H (0.52-1.04) mg/dL Estimated GFR 51.7 ML/MIN Glucose 78 (74-106) mg/dL Calcium 9.4 (8.4-10.2) mg/dL PTH Intact 36 (15-72) pg/mL - Procedures and Test Procedures and Tests throughout Hospitalization: Therapy Orders & Screens 05/20/19 10:49 PT Eval & Treat ( Order) ROUTINE Reason for Eval:: leg pain/weakness; states she feels like she is going to fall when she walks Diagnosis: Dehydration - Discharge Disposition: Home, Self-Care Condition: Stable Prescriptions: New Docusate Sodium 100 mg [Colace 100 MG] 100 mg PO BID capsule Duloxetine HCl 30 mg [Cymbalta 30 MG Capsule] 30 mg PO EVERY OTHER DAY cap Enoxaparin Sodium [Enoxaparin Sodium] 30 mg SQ DAILY ml Cholecalciferol (Vitamin D3) [D-2000] 2,000 unit PO DAILY #30 capsule Magnesium 250 mg PO DAILY #30 tablet Continue Lisinopril 20 mg [Zestril 20 MG] 20 mg PO DAILY #0 tablet Metoprolol Succinate 50 mg [Toprol Xl 50 MG] 50 mg PO HS Levothyroxine Sodium 75 Mcg [Synthroid 75 Mcg] 75 mcg PO DAILY Oxycodone HCl/Acetaminophen [Oxycodon-Acetaminophen 7.5-325] 1 each PO Q4HPRN PRN PRN Reason: Pain Calcium Carbonate/Vitamin D3 [Calcium 1,000 + D3 Caplet] 1 cap PO DAILY Instructions: Dehydration, Adult (DC) Follow up with: STEVE RUDOLPH MD [Primary Care Provider] - 1 Week
--- NOTE | 2019-05-22 09:55 | HP ---
HISTORY OF PRESENT ILLNESS: This is a 78 year-old patient of Dr. Esqueda who was [facility] in [facility] today complaining of leg cramps. They checked a comprehensive metabolic panel and found that her creatinine was 1.28 which was slightly higher than usual. Potassium 5.2, carbon dioxide 32, chloride 96, calcium 10.5. The patient reports that she had more pain since Tuesday in her back and legs from the knees down. She reports a cramping pain all the time. She was able to drink some Gatorade and water today and reports good urination. Her son is at the bedside and reports she also had some trouble with balance and has to hold onto things to walk. She recently restarted taking Lasix 20 mg every day but did forget yesterday due to swelling in her ankles which is now gone. Her reports decreased oral intake although she said she is eating some. She has had some weight loss and they report that she has plateaued with this. She reports she sees pain management for her chronic right leg pain after having the pain in her hip and some bursitis underneath this. REVIEW OF SYSTEMS: She gets short of breath with heat with the temperature when she brings the groceries in. She denies any lower extremity edema now. She has problems with constipation due to her pain medication. No chest pain. No fever. MEDICATIONS: Please see the home medication reconciliation form. ALLERGIES: NKDA. PAST MEDICAL HISTORY: Hypertension. Lower extremity edema. Chronic right hip pain. History of hyperparathyroidism and chronic renal insufficiency. PAST SURGICAL HISTORY: Right hip surgery in 2003. Cholecystectomy and then she had to have them go back and remove a stone. Hysterectomy. Hernia. SOCIAL HISTORY: She lives alone. No tobacco or alcohol use. FAMILY HISTORY: Her mother is and had diabetes. Her father is and had myocardial infarction in his 80's. PHYSICAL EXAMINATION: VITAL SIGNS: Temperature current 98.7F, heart rate 64, respiratory rate 18, blood pressure 116/58. Oxygen saturation 95% on room air. GENERAL: The patient is a pleasant talkative lady lying in bed in no acute distress with her son at the bedside. CVS: She has a regular rate and rhythm. No murmurs, gallops or rubs. CHEST: Clear to auscultation bilaterally. No crackles or wheezes. ABDOMEN: Soft, nontender, nondistended with normal bowel sounds. EXTREMITIES: No clubbing, cyanosis or edema. SKIN: Warm, dry and intact. LABORATORY DATA AND TESTS: ASSESSMENT AND PLAN: 1) MILD DEHYDRATION: I am going to start IV fluids at 100 ml/hour and recheck her basic metabolic panel in the morning. 2) MILD HYPERKALEMIA: I am going to hold her JOSSIE inhibitor and recheck her potassium in the morning. 3) CHRONIC RIGHT HIP PAIN: Will continue with her home pain medication. 4) HYPERTENSION: Continue to monitor blood pressure closely. 5) HISTORY OF LOWER EXTREMITY EDEMA: Will hold her Lasix at this time. I have discussed with her that she may not need to take this daily but maybe one to two times a week only if her ankles are swollen.
== END 2019-05-21 13:55 | disposition home or self-care (01) ==
LOC: MED SURG 18:52
PROVIDERS: ADMIT Internal Medicine; ATTEND Family Medicine
DX: E86.0 Dehydration (principal); E87.5 Hyperkalemia; M25.551 Pain in right hip; I12.9 Hypertensive chronic kidney disease with stage 1 through stage 4 chronic kidney disease, or unspecified chronic kidney disease; N18.3 Chronic kidney disease, stage 3 (moderate); R60.0 Localized edema; R26.81 Unsteadiness on feet
CPT/HCPCS: 36415; 80048; 80053; 82306; 83735; 83970; 85027; G0378; J1650; A9270-GY

== ENCOUNTER 2019-06-12 21:01 | Emergency (ER) | payer MEDICARE, OTHER ==
[2019-06-12] MEDS ORDERED: VASOTEC I.V. 2.5 MG IV ONE ×3 (21:29→22:17)
[2019-06-12 21:35] LABS: Hematocrit 34.3 % (35-47); Mean Cell Volume 94.2 fl (78-100); Mean Corpuscular Hemoglobin 30.2 pg (26-32); Mean Corpuscular Hgb Concent. 32.1 g/dl (32-36); Mean Platelet Volume 9.8 fl (6-9.5); Platelet Count 277 K/mm3 (150-450); Red Blood Count 3.64 M/mm3 (4.1-5.4); Red Cell Distribution Width 14.9 % (11.5-14.0); White Blood Count 6.5 K/mm3 (4.0-10.5)
[2019-06-12 21:38] LABS: INR 1.12 (0.8-3.0); PROTIME 12.7 SECONDS (9.95-12.35)
[2019-06-12 21:43] LABS: ALKALINE PHOSPHATASE 122 U/L (38-126); ANION GAP 13.5 MEQ/L (5-15); BLOOD UREA NITROGEN 13 mg/dL (7-17); CHLORIDE 103 mmol/L (98-107); Calcium 9.6 mg/dL (8.4-10.2); Carbon Dioxide 28 mmol/L (22-30); Creatinine 1 0.77 mg/dL (0.52-1.04); Glucose 107 mg/dL (74-106); Potassium 3.9 mmol/L (3.5-5.1); SGOT/AST 24 U/L (14-36); SGPT/ALT 13 U/L (0-35); SODIUM 140 mmol/L (137-145); Total Protein 7.4 g/dL (6.3-8.2)
--- NOTE | 2019-06-12 21:55 | ERPHSYRPT ---
- History of Present Illness Time Seen by Provider: 06/12/19 21:30 Source: patient, family Exam Limitations: no limitations Patient Subjective Stated Complaint: pt states her home [facility] nurse took her blood pressure and was elevated at home. [facility] nurse called it operations analyst physician and was told to come to er. pt denies headache Triage Nursing Assessment: pt alert and oriented, answers questions approp. pt back to room per wheelchair. ambulates from wheelchair to stretcher per self with steady gait noted. respirations nonlabored with lungs cta. skin pink warm and dry. Physician History: 78 y/o white female presents with asymptomatic high blood pressure. pt has no complaints. she has known htn and home health care visits pt nearly daily. pt has an appt with eye doctor tomorrow morning. pt takes lisinopril(am) and toprol (pm) each day. pt took her toprol atp 1930 this pm Timing/Duration: today Modifying Factors: Improves With: nothing Associated Symptoms: denies symptoms Allergies/Adverse Reactions: No Known Drug Allergies Allergy (Verified 10/07/17 15:44) Home Medications: Metoprolol Succinate 50 mg [Toprol Xl 50 MG] 50 mg PO HS 10/07/17 [History ] Levothyroxine Sodium 75 Mcg [Synthroid 75 Mcg] 75 mcg PO DAILY 03/09/18 [ History] Calcium Carbonate/Vitamin D3 [Calcium 1,000 + D3 Caplet] 1 cap PO DAILY [History] Oxycodone HCl/Acetaminophen [Oxycodon-Acetaminophen 7.5-325] 1 each PO Q4HPRN PRN 05/19/19 [History] Furosemide 40 mg [Lasix 40 MG] 40 mg PO DAILY 06/12/19 [History] Latanoprost [Xalatan] 2.5 ml OP HS 06/12/19 [History] Hx Tetanus, Diphtheria Vaccination/Date Given: Yes Hx Influenza Vaccination/Date Given: No Hx Pneumococcal Vaccination/Date Given: Yes Immunizations Up to Date: Yes - Review of Systems Constitutional: No Symptoms Eyes: No Symptoms Ears, Nose, & Throat: No Symptoms Respiratory: No Symptoms Cardiac: No Symptoms Abdominal/Gastrointestinal: No Symptoms Genitourinary Symptoms: No Symptoms Musculoskeletal: No Symptoms Skin: No Symptoms Neurological: No Symptoms Psychological: No Symptoms Endocrine: No Symptoms Hematologic/Lymphatic: No Symptoms Immunological/Allergic: No Symptoms All Other Systems: Reviewed and Negative - Past Medical History Pertinent Past Medical History: Yes Neurological History: No Pertinent History ENT History: No Pertinent History Cardiac History: Hypertension Respiratory History: No Pertinent History Endocrine Medical History: Hypothyroidism Musculoskeletal History: Arthritis, Osteoporosis GI Medical History: Gallbladder Disease History: No Pertinent History Psycho-Social History: No Pertinent History Female Reproductive Disorders: No Pertinent History Other Medical History: Pt uses pessary for incontinence. "I didnt need surgery and MD thought this would be better than surgery". - Past Surgical History Past Surgical History: Yes Neuro Surgical History: No Pertinent History Cardiac: Cardiac Catheterization Respiratory: No Pertinent History Gastrointestinal: Cholecystectomy, Hernia Repair Genitourinary: No Pertinent History Musculoskeletal: Orthopedic Surgery Female Surgical History: Hysterectomy Other Surgical History: right hip fx repair - Social History Smoking Status: Never smoker Exposure to second hand smoke: No Drug Use: none Patient Lives Alone: No - Nursing Vital Signs Nursing Vital Signs: Initial Vital Signs Temperature 99.1 F 06/12/19 21:03 Pulse Rate 68 06/12/19 21:03 Respiratory Rate 18 06/12/19 21:03 Blood Pressure 227/109 06/12/19 21:03 O2 Sat by Pulse Oximetry 97 06/12/19 21:03 Pain Scale Pain Intensity 4 - Physical Exam General Appearance: no apparent distress, alert, anxiety Eye Exam: PERRL/EOMI, eyes nml inspection Ears, Nose, Throat Exam: normal ENT inspection, moist mucous membranes Neck Exam: normal inspection, non-tender, supple, full range of motion Respiratory Exam: normal breath sounds, lungs clear, airway intact, No chest tenderness, No respiratory distress Cardiovascular Exam: regular rate/rhythm, normal heart sounds, normal peripheral pulses Gastrointestinal/Abdomen Exam: soft, normal bowel sounds, No tenderness Pelvic Exam: not done Rectal Exam: not done Back Exam: normal inspection, normal range of motion, No CVA tenderness Extremity Exam: normal inspection, normal range of motion, No pelvis stable Neurologic Exam: alert, oriented x 3, cooperative, colorer hides and skins II-XII nml as tested Skin Exam: normal color, warm, dry Lymphatic Exam: No adenopathy SpO2 Interpretation: normal SpO2: 96 O2 Delivery: Room Air - Course Nursing assessment & vital signs reviewed: Yes EKG Interpreted by Me: RATE ([id number]), Sinus Rhythm, NORMAL AXIS, NORMAL INTERVALS, NORMAL QRS, Non-specific ST Changes, Other (compared to ekg dated 10/08/17, 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) Ordered Tests: Active Orders 24 hr Category Date Time Status Telephone Supervisor STAT Care 06/12/19 21:22 Active EKG-ER Only STAT Care 06/12/19 21:21 Active IV Insertion STAT Care 06/12/19 21:21 Active CBC W DIFF Stat Lab 06/12/19 21:32 Completed CMP Stat Lab 06/12/19 21:32 Completed Manual Differential NC Stat Lab 06/12/19 21:32 Completed PROTIME WITH INR Stat Lab 06/12/19 21:32 Completed TROPONIN Q3H Lab 06/12/19 21:32 Completed TROPONIN Q3H Lab 06/13/19 00:30 Ordered TROPONIN Q3H Lab 06/13/19 03:30 Ordered TROPONIN Q3H Lab 06/13/19 06:30 Ordered TROPONIN Q3H Lab 06/13/19 09:30 Ordered UA W/RFX UR CULTURE Stat Lab 06/12/19 22:55 Completed Medication Summary Generic Name Dose Route Start Last Admin Trade Name Freq PRN Reason Stop Dose Admin Hydralazine HCl 5 mg 06/12/19 23:06 06/12/19 23:11 Apresoline 20 Mg/Ml Inj IV 07/12/19 23:05 5 mg [id number] PRN Administration HYPERTENSION Discontinued Medications Generic Name Dose Route Start Last Admin Trade Name Freq PRN Reason Stop Dose Admin Enalaprilat 0.625 mg 06/12/19 21:29 06/12/19 21:35 Vasotec I.V. 2.5 Mg IV 06/12/19 21:30 0.625 mg STAT ONE Administration Enalaprilat Confirm 06/12/19 21:32 Vasotec I.V. 2.5 Mg Administered 06/12/19 21:33 Dose 2.5 mg IV .STK-MED ONE Enalaprilat 0.625 mg 06/12/19 22:17 06/12/19 22:19 Vasotec I.V. 2.5 Mg IV 06/12/19 22:18 0.625 mg STAT ONE Administration Morphine Sulfate 2 mg 06/12/19 22:34 06/12/19 22:41 Morphine Sulfate 2 Mg Inj IV 06/12/19 22:35 2 mg STAT ONE Administration Morphine Sulfate Confirm 06/12/19 22:37 Morphine Sulfate 2 Mg Inj Administered 06/12/19 22:38 Dose 2 mg .ROUTE .STK-MED ONE Lab/Rad Data: Laboratory Result Diagrams 06/12/19 21:32 06/12/19 21:32 Laboratory Results 06/12/19 06/12/19 06/12/19 Range/Units 22:55 21:32 21:32 WBC (4.0-10.5) K/mm3 RBC (4.1-5.4) M/mm3 Hgb (12.0-16.0) gm/dl Hct (35-47) % MCV (78-100) fl MCH (26-32) pg MCHC (32-36) g/dl RDW (11.5-14.0) % Plt Count (150-450) K/mm3 MPV (6-9.5) fl Segmented Neutrophils (36.0-66.0) % Lymphocytes (Manual) (24-44) % Monocytes (Manual) (0.0-12.0) % Eosinophils (Manual) (0.00-3.0) % Platelet Estimate (NORMAL) RBC Morphology PT 12.7 H (9.95-12.35) SECONDS INR 1.12 (0.8-3.0) Sodium (137-145) mmol/L Potassium (3.5-5.1) mmol/L Chloride (98-107) mmol/L Carbon Dioxide (22-30) mmol/L Anion Gap (5-15) MEQ/L BUN (7-17) mg/dL Creatinine (0.52-1.04) mg/dL Estimated GFR ML/MIN Glucose (74-106) mg/dL Calcium (8.4-10.2) mg/dL Total Bilirubin (0.2-1.3) mg/dL AST (14-36) U/L ALT (0-35) U/L Alkaline Phosphatase (38-126) U/L Troponin I < 0.012 (0.000-0.034) ng/mL Serum Total Protein (6.3-8.2) g/dL Albumin (3.5-5.0) g/dL Urine Color STRAW (YELLOW) Urine Appearance CLEAR (CLEAR) Urine pH 7.0 (5-6) Ur Specific [place] 1.008 (1.005-1.025) Urine Protein NEGATIVE (Negative) Urine Ketones NEGATIVE (NEGATIVE) Urine Blood NEGATIVE (0-5) Josse/ul Urine Nitrite NEGATIVE (NEGATIVE) Urine Bilirubin NEGATIVE (NEGATIVE) Urine Urobilinogen NEGATIVE (0-1) mg/dL Ur Leukocyte Esterase NEGATIVE (NEGATIVE) Urine WBC (Auto) 0-2 (0-5) /HPF Urine RBC (Auto) NONE (0-2) /HPF U Epithel Cells (Auto) NONE (FEW) /HPF Urine Bacteria (Auto) RARE (NEGATIVE) /HPF Urine Mucus (Auto) SLIGHT (NEGATIVE) /HPF Urine Culture Reflexed NO (NO) Urine Glucose NEGATIVE (NEGATIVE) mg/dL 06/12/19 06/12/19 Range/Units 21:32 21:32 WBC 6.5 (4.0-10.5) K/mm3 RBC 3.64 L (4.1-5.4) M/mm3 Hgb 11.0 L (12.0-16.0) gm/dl Hct 34.3 L (35-47) % MCV 94.2 (78-100) fl MCH 30.2 (26-32) pg MCHC 32.1 (32-36) g/dl RDW 14.9 H (11.5-14.0) % Plt Count 277 (150-450) K/mm3 MPV 9.8 H (6-9.5) fl Segmented Neutrophils 56 (36.0-66.0) % Lymphocytes (Manual) 30 (24-44) % Monocytes (Manual) 9 (0.0-12.0) % Eosinophils (Manual) 5 H (0.00-3.0) % Platelet Estimate NORMAL (NORMAL) RBC Morphology NORMAL PT (9.95-12.35) SECONDS INR (0.8-3.0) Sodium 140 (137-145) mmol/L Potassium 3.9 (3.5-5.1) mmol/L Chloride 103 (98-107) mmol/L Carbon Dioxide 28 (22-30) mmol/L Anion Gap 13.5 (5-15) MEQ/L BUN 13 (7-17) mg/dL Creatinine 0.77 (0.52-1.04) mg/dL Estimated GFR > 60.0 ML/MIN Glucose 107 H (74-106) mg/dL Calcium 9.6 (8.4-10.2) mg/dL Total Bilirubin 0.20 (0.2-1.3) mg/dL AST 24 (14-36) U/L ALT 13 (0-35) U/L Alkaline Phosphatase 122 (38-126) U/L Troponin I (0.000-0.034) ng/mL Serum Total Protein 7.4 (6.3-8.2) g/dL Albumin 4.0 (3.5-5.0) g/dL Urine Color (YELLOW) Urine Appearance (CLEAR) Urine pH (5-6) Ur Specific [place] (1.005-1.025) Urine Protein (Negative) Urine Ketones (NEGATIVE) Urine Blood (0-5) Josse/ul Urine Nitrite (NEGATIVE) Urine Bilirubin (NEGATIVE) Urine Urobilinogen (0-1) mg/dL Ur Leukocyte Esterase (NEGATIVE) Urine WBC (Auto) (0-5) /HPF Urine RBC (Auto) (0-2) /HPF U Epithel Cells (Auto) (FEW) /HPF Urine Bacteria (Auto) (NEGATIVE) /HPF Urine Mucus (Auto) (NEGATIVE) /HPF Urine Culture Reflexed (NO) Urine Glucose (NEGATIVE) mg/dL - Progress Progress: unchanged, improved, re-examined Progress Note: 06/12/19 23:51 still asymptomatic. pt does not want to stay unless absolutely necessary 06/12/19 23:54 Counseled pt/family regarding: lab results, diagnosis, need for follow-up - Departure Departure Disposition: Home Clinical Impression: Asymptomatic hypertensive urgency Condition: Stable Critical Care Time: Yes Critical Care Time(excluding separately billable procedures): Critical 30-74 mins Referrals: STEVE RUDOLPH MD [Primary Care Provider] - Additional Instructions: take medications as prescribed. keep blood pressure log of morning and evening blood pressures. keep your appointment tomorrow
[2019-06-12] MEDS ORDERED: MORPHINE SULFATE 2 MG INJ IV ONE (22:34)
[2019-06-12] MEDS ORDERED: MORPHINE SULFATE 2 MG INJ ONE (22:37)
[2019-06-12 22:59] LABS: Eosinophil 5 % (0.00-3.0); Lymphocytes 30 % (24-44); Monocyte 9 % (0.0-12.0); Neutrophils 56 % (36.0-66.0); Platelet Estimate NORMAL (NORMAL); Total Cells Counted 100
[2019-06-12 23:03] LABS: Appearance CLEAR (CLEAR); Bacteria RARE /HPF (NEGATIVE); Bilirubin NEGATIVE (NEGATIVE); Blood NEGATIVE Ery/ul (0-5); Glucose NEGATIVE (NEGATIVE); Ketones NEGATIVE (NEGATIVE); Leukocyte Esterase NEGATIVE (NEGATIVE); Mucus SLIGHT /HPF (NEGATIVE); Nitrite NEGATIVE (NEGATIVE); Protein,Urine Dip NEGATIVE (Negative); Specific Gravity 1.008 (1.005-1.025); Urobilinogen NEGATIVE mg/dL (0-1); WBC 0-2 /HPF (0-5)
[2019-06-12] MEDS ORDERED: APRESOLINE 20 MG/ML INJ ONE (23:06)
[2019-06-12] MEDS: APRESOLINE 20 MG/ML INJ IV PRN ×2 (23:11→23:58)
[2019-06-13] MEDS: APRESOLINE 20 MG/ML INJ IV PRN (00:57)
[2019-06-13] MEDS ORDERED: LOPRESSOR 5 MG/5 ML INJECTION IV ONE ×4 (01:11→01:37)
[2019-06-13 01:39] VITALS: O2SAT 97
[2019-06-13 02:02] VITALS: BP 170/78; PULSE 64
== END 2019-06-13 02:22 | disposition home or self-care (01) ==
LOC: ED 21:01
DX: I16.0 Hypertensive urgency (principal)
CPT/HCPCS: 36000; 36415; 80053; 81001; 84484; 85025; 85610; 93005; 93041; 96374; 96375; 96376; 99285; 99291; J0360; J2270

== ENCOUNTER 2019-10-10 12:59 | Day surgery (SDC) | payer MEDICARE, OTHER ==
[2019-10-10] MEDS ORDERED: Marcaine 0.5% SDV 10 ML IJ ONE (13:00)
[2019-10-10] MEDS ORDERED: Xylocaine 1% Vial 30 ML PF IJ ONE (13:00)
[2019-10-10] MEDS ORDERED: Depo-Medrol 40 MG/ML IM ONE (13:00)
--- NOTE | 2019-10-10 16:48 | XRAY ---
Indication: Right greater trochanter injection. Intraoperative fluoroscopy was provided for 11 seconds. Single digital spot image submitted for interpretation demonstrates posterior needle tip projecting just lateral to the right greater trochanter. Small amount of contrast injected for needle tip placement. Correlate with intraoperative findings/report. Incidental old right proximal femur fracture with partially visualized orthopedic hardware.
--- NOTE | 2019-10-10 16:51 | XRAY ---
11 seconds fluoroscopy time in surgery for right greater trochanter injection.
== END 2019-10-10 15:01 | disposition home or self-care (01) ==
LOC: SDC-PAIN 12:59
PROVIDERS: ATTEND Psychiatry & Neurology Pain Medicine
DX: M70.61 Trochanteric bursitis, right hip (principal); I10 Essential (primary) hypertension; E03.9 Hypothyroidism, unspecified; M25.551 Pain in right hip; Z79.899 Other long term (current) drug therapy
CPT/HCPCS: 20610; 73501; 77002; J1030; J2001; Q9966

== ENCOUNTER 2020-04-11 19:11 | Emergency (ER) | payer MEDICARE, OTHER ==
[2020-04-11] MEDS ORDERED: NITRO-BID 2% UD PACKETS TOP ONE (19:27)
[2020-04-11] MEDS ORDERED: Zofran 4 MG/2 ML VIAL IV ONE (19:27)
[2020-04-11] MEDS ORDERED: MORPHINE SULFATE 4 MG INJ IV ONE (19:27)
[2020-04-11] MEDS ORDERED: BABY ASPIRIN 81 MG CHEW PO ONE (19:27)
--- NOTE | 2020-04-11 19:31 | ERPHSYRPT ---
- History of Present Illness Time Seen by Provider: 04/11/20 19:20 Historian: patient Exam Limitations: no limitations Physician History: 79 years old female with history of hypertension, hyperlipidemia, hypothyroidism presented in the ER with chief complaint of intermittent chest pain since yesterday. Patient report initially it was substernal yesterday, took pain me dications and Lasix and chest pain improved but again today is having chest pain but more on the left side, aggravated with deep breathing and no relief with taking Percocet. Moderate intensity, sharp in nature, nonradiating type pain. Denies any associated shortness of breath, fever or chills/cough. Timing/Duration: yesterday, intermittent, sudden, worse Activities at Onset: rest Quality: sharpness Location: substernal Chest Pain Radiation: no radiation Severity of Pain-Max: moderate Severity of Pain-Current: moderate Modifying Factors: Improves With: breathing Associated Symptoms: denies symptoms Prior Chest Pain/Cardiac Workup: no prior cardiac workup Nitro Today/Relief: no nitro taken today Aspirin Treatment Today: no aspirin today Allergies/Adverse Reactions: No Known Drug Allergies Allergy (Verified 04/11/20 20:01) Home Medications: Metoprolol Succinate 50 mg [Toprol Xl 50 MG] 50 mg PO HS 10/07/17 [History] Levothyroxine Sodium 75 Mcg [Synthroid 75 Mcg] 75 mcg PO DAILY 03/09/18 [History] Oxycodone HCl/Acetaminophen [Oxycodon-Acetaminophen 7.5-325] 1 each PO Q4-6HPRN PRN 05/19/19 [History] Furosemide 40 mg [Lasix 40 MG] 20 mg PO DAILY 06/12/19 [History] Latanoprost [Xalatan] 2.5 ml OP HS 06/12/19 [History] Amlodipine Besylate 5 mg [Norvasc 5 mg] 5 mg PO DAILY 04/11/20 [History] Lisinopril 20 mg [Zestril 20 MG] 40 mg PO DAILY 04/11/20 [History] Hx Tetanus, Diphtheria Vaccination/Date Given: Yes Hx Influenza Vaccination/Date Given: No Hx Pneumococcal Vaccination/Date Given: Yes Travel Risk - International Travel Have you traveled outside of the country in past 3 weeks: No - Coronavirus Screening Are you exhibiting any of the following symptoms?: No Close contact with a COVID-19 positive Pt in past 14-21 Days: No - Review of Systems Constitutional: No Symptoms Eyes: No Symptoms Ears, Nose, & Throat: No Symptoms Respiratory: No Symptoms Cardiac: Chest Pain Abdominal/Gastrointestinal: No Symptoms Genitourinary Symptoms: No Symptoms Musculoskeletal: No Symptoms Skin: No Symptoms Neurological: No Symptoms Psychological: No Symptoms Endocrine: No Symptoms Hematologic/Lymphatic: No Symptoms Immunological/Allergic: No Symptoms - Past Medical History Pertinent Past Medical History: Yes Neurological History: No Pertinent History ENT History: No Pertinent History Cardiac History: Hypertension Respiratory History: No Pertinent History Endocrine Medical History: Hypothyroidism Musculoskeletal History: Arthritis, Osteoporosis GI Medical History: Gallbladder Disease History: No Pertinent History Psycho-Social History: No Pertinent History Female Reproductive Disorders: No Pertinent History Other Medical History: Pt uses pessary for incontinence. "I didnt need surgery and MD thought this would be better than surgery". - Past Surgical History Past Surgical History: Yes Neuro Surgical History: No Pertinent History Cardiac: Cardiac Catheterization Respiratory: No Pertinent History Gastrointestinal: Cholecystectomy, Hernia Repair Genitourinary: No Pertinent History Musculoskeletal: Orthopedic Surgery Female Surgical History: Hysterectomy Other Surgical History: right hip fx repair - Social History Smoking Status: Never smoker Exposure to second hand smoke: No Drug Use: none Patient Lives Alone: No - Nursing Vital Signs Nursing Vital Signs: Initial Vital Signs Temperature 98.4 F 04/11/20 19:24 Pulse Rate 58 L 04/11/20 19:24 Respiratory Rate 20 04/11/20 19:24 Blood Pressure 177/77 04/11/20 19:24 O2 Sat by Pulse Oximetry 99 04/11/20 19:24 Pain Scale Pain Intensity 5 - Physical Exam General Appearance: no apparent distress Eye Exam: PERRL/EOMI, eyes nml inspection Ears, Nose, Throat Exam: normal ENT inspection, pharynx normal Neck Exam: normal inspection, supple, full range of motion Respiratory Exam: normal breath sounds, lungs clear Cardiovascular Exam: regular rate/rhythm, normal heart sounds Gastrointestinal/Abdomen Exam: soft, normal bowel sounds, No tenderness Back Exam: normal inspection Extremity Exam: normal inspection, normal range of motion Neurologic Exam: alert, oriented x 3, cooperative Skin Exam: normal color SpO2 Interpretation: normal O2 Delivery: Room Air - Course EKG Interpreted by Me: RATE (58), Sinus Anthony, NORMAL AXIS, NORMAL INTERVALS (Nonspecific T wave changes) Ordered Tests: Active Orders 24 hr Category Date Time Status Car Hop STAT Care 04/11/20 19:28 Active EKG-ER Only STAT Care 04/11/20 19:27 Active IV Insertion STAT Care 04/11/20 19:27 Active Oxygen-ED Only Nasal Cannula 2 lpm Care 04/11/20 19:27 Active CHEST 1 VIEW (PORTABLE) Stat Exams 04/11/20 19:28 Completed CBC W DIFF Stat Lab 04/11/20 19:40 Completed CK-Creatinine Phosphokinase Stat Lab 04/11/20 19:40 Completed CMP Stat Lab 04/11/20 19:40 Completed D-DIMER QUANTITATIVE Stat Lab 04/11/20 19:40 Completed NT PRO BNP Stat Lab 04/11/20 19:40 Completed PROTIME WITH INR Stat Lab 04/11/20 19:40 Completed PTT Stat Lab 04/11/20 19:40 Completed TROPONIN Q3H Lab 04/11/20 19:40 Completed TROPONIN Q3H Lab 04/11/20 22:42 Completed TROPONIN Q3H Lab 04/12/20 01:30 Ordered TROPONIN Q3H Lab 04/12/20 04:30 Ordered TROPONIN Q3H Lab 04/12/20 07:30 Ordered Medication Summary Discontinued Medications Generic Name Dose Route Start Last Admin Trade Name Freq PRN Reason Stop Dose Admin Aspirin 324 mg 04/11/20 19:27 04/11/20 19:48 Baby Aspirin 81 Mg Chew PO 04/11/20 19:28 324 mg STAT ONE Administration Aspirin Confirm 04/11/20 19:44 Baby Aspirin 81 Mg Chew Administered 04/11/20 19:45 Dose 324 mg .ROUTE .STK-MED ONE Sodium Chloride 500 mls @ 500 mls/hr 04/11/20 21:45 04/11/20 22:40 Sodium Chloride 0.9% 500 Ml IV 04/11/20 22:44 500 mls/hr .Q1H ONE Administration Sodium Chloride Confirm 04/11/20 22:38 Sodium Chloride 0.9% 500 Ml Administered 04/11/20 22:39 Dose 500 mls @ ud IV .STK-MED ONE Morphine Sulfate 4 mg 04/11/20 19:27 04/11/20 19:50 Morphine Sulfate 4 Mg Inj IV 04/11/20 19:28 4 mg STAT ONE Administration Morphine Sulfate Confirm 04/11/20 19:44 Morphine Sulfate 4 Mg Inj Administered 04/11/20 19:45 Dose 4 mg .ROUTE .STK-MED ONE Nitroglycerin 1 gm 04/11/20 19:27 04/11/20 19:49 Nitro-Bid 2% Ud Packets TOP 04/11/20 19:28 1 gm STAT ONE Administration Nitroglycerin Confirm 04/11/20 19:44 Nitro-Bid 2% Ud Packets Administered 04/11/20 19:45 Dose 1 gm .ROUTE .STK-MED ONE Ondansetron HCl 4 mg 04/11/20 19:27 04/11/20 19:50 Zofran 4 Mg/2 Ml Vial IV 04/11/20 19:28 4 mg STAT ONE Administration Ondansetron HCl Confirm 04/11/20 19:44 Zofran 4 Mg/2 Ml Vial Administered 04/11/20 19:45 Dose 4 mg .ROUTE .STK-MED ONE Lab/Rad Data: Laboratory Result Diagrams 04/11/20 19:40 04/11/20 19:40 Laboratory Results 04/11/20 04/11/20 04/11/20 Range/Units 22:42 19:40 19:40 WBC (4.0-10.5) K/mm3 RBC (4.1-5.4) M/mm3 Hgb (12.0-16.0) gm/dl Hct (35-47) % MCV (78-100) fl MCH (26-32) pg MCHC (32-36) g/dl RDW (11.5-14.0) % Plt Count (150-450) K/mm3 MPV (7.5-11.0) fl Gran % (36.0-66.0) % Eos # (Auto) (0-0.5) Absolute Lymphs (auto) (1.0-4.6) Absolute Monos (auto) (0.0-1.3) Lymphocytes % (24.0-44.0) % Monocytes % (0.0-12.0) % Eosinophils % (0.00-5.0) % Basophils % (0.0-0.4) % Absolute Granulocytes (1.4-6.9) Basophils # (0-0.4) PT 13.2 H (9.95-12.35) SECONDS INR 1.17 (0.8-3.0) APTT 33.0 (25.3-37.0) SECONDS D-Dimer 874 H* (215-500) ng/mL Sodium (137-145) mmol/L Potassium (3.5-5.1) mmol/L Chloride (98-107) mmol/L Carbon Dioxide (22-30) mmol/L Anion Gap (5-15) MEQ/L BUN (7-17) mg/dL Creatinine (0.52-1.04) mg/dL Estimated GFR ML/MIN Glucose (74-106) mg/dL Calcium (8.4-10.2) mg/dL Total Bilirubin (0.2-1.3) mg/dL AST (14-36) U/L ALT (0-35) U/L Alkaline Phosphatase (38-126) U/L Creatine Kinase (30-135) U/L Troponin I < 0.012 < 0.012 (0.000-0.034) ng/mL NT-Pro-B Natriuret Pep (0-1800) pg/mL Serum Total Protein (6.3-8.2) g/dL Albumin (3.5-5.0) g/dL 04/11/20 04/11/20 Range/Units 19:40 19:40 WBC 9.2 (4.0-10.5) K/mm3 RBC 3.96 L (4.1-5.4) M/mm3 Hgb 11.6 L (12.0-16.0) gm/dl Hct 37.2 (35-47) % MCV 93.9 (78-100) fl MCH 29.3 (26-32) pg MCHC 31.2 L (32-36) g/dl RDW 14.8 H (11.5-14.0) % Plt Count 352 (150-450) K/mm3 MPV 9.9 (7.5-11.0) fl Gran % 60.7 (36.0-66.0) % Eos # (Auto) 0.22 (0-0.5) Absolute Lymphs (auto) 2.38 (1.0-4.6) Absolute Monos (auto) 0.97 (0.0-1.3) Lymphocytes % 26.0 (24.0-44.0) % Monocytes % 10.6 (0.0-12.0) % Eosinophils % 2.4 (0.00-5.0) % Basophils % 0.3 (0.0-0.4) % Absolute Granulocytes 5.57 (1.4-6.9) Basophils # 0.03 (0-0.4) PT (9.95-12.35) SECONDS INR (0.8-3.0) APTT (25.3-37.0) SECONDS D-Dimer (215-500) ng/mL Sodium 140 (137-145) mmol/L Potassium 3.9 (3.5-5.1) mmol/L Chloride 102 (98-107) mmol/L Carbon Dioxide 28 (22-30) mmol/L Anion Gap 13.2 (5-15) MEQ/L BUN 21 H (7-17) mg/dL Creatinine 1.46 H (0.52-1.04) mg/dL Estimated GFR 36.8 ML/MIN Glucose 128 H (74-106) mg/dL Calcium 9.6 (8.4-10.2) mg/dL Total Bilirubin 0.40 (0.2-1.3) mg/dL AST 22 (14-36) U/L ALT 12 (0-35) U/L Alkaline Phosphatase 99 (38-126) U/L Creatine Kinase 41 (30-135) U/L Troponin I (0.000-0.034) ng/mL NT-Pro-B Natriuret Pep 471 (0-1800) pg/mL Serum Total Protein 7.6 (6.3-8.2) g/dL Albumin 4.0 (3.5-5.0) g/dL - Progress Progress: improved, re-examined Air Movement: good Progress Note: 79 years old is evaluated for intermittent chest pain since yesterday. Initial EKG did not show any acute ischemic changes. She is given aspirin and morphine, on reevaluation feeling better. Her initial troponins are negative. Chest x- ray did not show any acute cardiopulmonary infiltrates reviewed by me. She has mildly elevated d-dimer 874 but because of her mild acute kidney injury CTA cannot be obtained. Recommended VQ scan but nuclear studies are not available over the weekend, discussed with Dr. Griggs and recommended transfer to [facility]. She also has mild AK I and given a small bolus of IV fluids. Plan discussed with patient and family who understand and agree with it. I have discussed with Dr. Magaña at [facility] ER and patient is accepted for transfer. 04/11/20 21:44 Blood Culture(s) Obtained: No Antibiotics given: No Discussed with : Ryan Counseled pt/family regarding: lab results, diagnosis, rad results - Departure Departure Disposition: Transfer Clinical Impression: Precordial chest pain, Elevated d-dimer, CORNELIA (acute kidney injury) Condition: Stable Critical Care Time: No Referrals: STEVE RUDOLPH MD [Primary Care Provider] -
[2020-04-11 19:44] LABS: Absolute Neutrophil Ct (ANC) 5.57 (1.4-6.9); BASOPHIL % 0.3 % (0.0-0.4); Basophil (Absolute #) 0.03 (0-0.4); Eosinophil % 2.4 % (0.00-5.0); Eosinophil (Absolute #) 0.22 (0-0.5); Hematocrit 37.2 % (35-47); Hemoglobin 11.6 gm/dl (12.0-16.0); Lymphocyte (Absolute #) 2.38 (1.0-4.6); Mean Cell Volume 93.9 fl (78-100); Mean Corpuscular Hemoglobin 29.3 pg (26-32); Mean Corpuscular Hgb Concent. 31.2 g/dl (32-36); Mean Platelet Volume 9.9 fl (7.5-11.0); Monocyte (Absolute #) 0.97 (0.0-1.3); Monocytes % 10.6 % (0.0-12.0); Neutrophil % 60.7 % (36.0-66.0); Platelet Count 352 K/mm3 (150-450); Red Blood Count 3.96 M/mm3 (4.1-5.4); Red Cell Distribution Width 14.8 % (11.5-14.0); White Blood Count 9.2 K/mm3 (4.0-10.5)
[2020-04-11] MEDS ORDERED: MORPHINE SULFATE 4 MG INJ ONE (19:44)
[2020-04-11] MEDS ORDERED: NITRO-BID 2% UD PACKETS ONE (19:44)
[2020-04-11] MEDS ORDERED: Zofran 4 MG/2 ML VIAL ONE (19:44)
[2020-04-11] MEDS ORDERED: BABY ASPIRIN 81 MG CHEW ONE (19:44)
[2020-04-11 19:54] LABS: INR 1.17 (0.8-3.0); PROTIME 13.2 SECONDS (9.95-12.35)
[2020-04-11 20:07] LABS: ANION GAP 13.2 MEQ/L (5-15); BILIRUBIN,TOTAL 0.4 mg/dL (0.2-1.3); Calcium 9.6 mg/dL (8.4-10.2); Creatinine 1 1.46 mg/dL (0.52-1.04); Potassium 3.9 mmol/L (3.5-5.1); Total Protein 7.6 g/dL (6.3-8.2)
--- NOTE | 2020-04-11 21:42 | XRAY ---
Indication: Chest pain. Comparison: September 21, 2017. Portable apical lordotic chest underinflated accentuating cardiopulmonary structures. Minimal lingula subsegmental atelectasis/scarring. Remaining heart and lungs unremarkable. Stable small hiatal hernia. Bony thorax intact again with mild osteopenia and degenerative changes. Impression: Nonacute underinflated chest with chronic features.
[2020-04-11] MEDS ORDERED: Sodium Chloride 0.9% 500 ML 500 ML IV ONE ×2 (21:45→22:38)
[2020-04-11 23:40] VITALS: BP 143/62; PULSE 53; O2SAT 99
== END 2020-04-11 23:30 | disposition short-term general hospital (02) ==
LOC: ED 19:11
DX: R07.2 Precordial pain (principal); R79.89 Other specified abnormal findings of blood chemistry; N17.9 Acute kidney failure, unspecified; I10 Essential (primary) hypertension; E78.5 Hyperlipidemia, unspecified; E03.9 Hypothyroidism, unspecified; Z79.899 Other long term (current) drug therapy
CPT/HCPCS: 36000; 36415; 71045; 80053; 82550; 83880; 84484; 85025; 85379; 85610; 85730; 93005; 93041; 96374; 96375; 99284; J2270; J2405; A9270-GY

== ENCOUNTER 2023-02-18 12:06 | Emergency (ER) | payer MEDICARE, OTHER ==
[2023-02-18] MEDS ORDERED: Hydromorphone 1 mg/ml Injection IV ONE ×2 (12:10→12:53)
[2023-02-18] MEDS ORDERED: Hydromorphone 1 mg/ml Injection ONE ×3 (12:11→13:06)
--- NOTE | 2023-02-18 12:44 | XRAY ---
Indication: Pain following fall. Comparison: None 3 view right knee demonstrates osteopenia, mild degenerative changes medial/patellofemoral articulations, and incidental small posterior fabella. No other bony, articular, or soft tissue abnormalities.
--- NOTE | 2023-02-18 12:46 | XRAY ---
Indication: Pain following fall. Comparison: None 3 view right hand demonstrates mildly angulated fractures proximal shafts 3rd/4th/5th proximal phalanges with soft tissue swelling. Elsewhere osteopenia, mild/moderate degenerative changes all IP/MCP joints, and mild/moderate degenerative changes 1st metacarpal multangular scaphoid articulation.
[2023-02-18] MEDS ORDERED: Zofran 4 MG/2 ML VIAL IV ONE (13:04)
[2023-02-18] MEDS ORDERED: Zofran 4 MG/2 ML VIAL ONE (13:06)
[2023-02-18 13:12] LABS: Absolute Neutrophil Ct (ANC) 5.21 x10^3/uL (1.4-6.9); BASOPHIL % 0.9 % (0.0-0.4); Basophil (Absolute #) 0.08 x10^3/uL (0-0.4); Eosinophil % 2.8 % (0.00-5.0); Eosinophil (Absolute #) 0.26 x10^3/uL (0-0.5); Hematocrit 37.5 % (35-47); Hemoglobin 11.6 g/dL (12.0-16.0); IMMATURE GRAN # 0.12 x10^3u/L (0.00-0.03); IMMATURE GRAN % 1.3 % (0.00-0.4); Lymphocytes % 28.2 % (24.0-44.0); Mean Cell Volume 96.6 fL (78-100); Mean Corpuscular Hemoglobin 29.9 pg (26-32); Mean Corpuscular Hgb Concent. 30.9 g/dL (32-36); Mean Platelet Volume 10.8 fL (7.5-11.0); Monocyte (Absolute #) 0.95 x10^3/uL (0.0-1.3); Monocytes % 10.3 % (0.0-12.0); Neutrophil % 56.5 % (36.0-66.0); Platelet Count 450 x10^3/uL (150-450); Red Blood Count 3.88 x10^6/uL (4.1-5.4); Red Cell Distribution Width 15.5 % (11.5-14.0); White Blood Count 9.2 x10^3/uL (4.0-10.5)
[2023-02-18 13:25] LABS: ALBUMIN 4.1 g/dL (3.5-5.0); ALKALINE PHOSPHATASE 345 U/L (38-126); ANION GAP 14.2 MEQ/L (5-15); BLOOD UREA NITROGEN 12 mg/dL (7-17); CHLORIDE 103 mmol/L (98-107); Calcium 9.5 mg/dL (8.4-10.2); Carbon Dioxide 28 mmol/L (22-30); EST GLOMERULAR FILTRATION RATE > 60.0 ML/MIN; Glucose 85 mg/dL (74-106); Potassium 3.9 mmol/L (3.5-5.1); SGOT/AST 34 U/L (14-36); SGPT/ALT 44 U/L (0-35); SODIUM 141 mmol/L (137-145)
--- NOTE | 2023-02-18 13:29 | ERPHSYRPT ---
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 pt states she feels like she broke her hand. noted deformities in multiple fingers. limited ROM in affected hand. bilateral extremities have limited ROM due to shoulder pain that is chronic. Physician History: Patient is an 82-year-old white female who presents with a complaint of a fall at home while she was mowing the yard. 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 She also landed on her right knee but has full range of motion and minimal pain there. She had no loss of consciousness no other injury no other complaints of pain. Occurred: just prior to arrival Method of Injury: fell Quality: aching, throbbing Severity of Pain-Max: severe Severity of Pain-Current: moderate Extremities Pain Location: 3rd finger: right, 4th finger: right, 5th finger: right Modifying Factors: Improves With: movement Allergies/Adverse Reactions: celecoxib [From Celebrex] Allergy (Verified 02/18/23 12:37) Home Medications: Metoprolol Succinate 50 mg [Toprol Xl 50 MG] 50 mg PO HS 10/07/17 [History] Levothyroxine Sodium 75 Mcg [Synthroid 75 Mcg] 75 mcg PO DAILY 03/09/18 [History] Oxycodone HCl/Acetaminophen [Oxycodone-Acetaminophn 7.5-325] 1 each PO Q4-6HPRN PRN 05/19/19 [History] Furosemide 40 mg [Lasix 40 MG] 20 mg PO DAILY PRN PRN 06/12/19 [History] Latanoprost [Xalatan] 2.5 ml OP HS 06/12/19 [History] Lisinopril 20 mg [Zestril 20 MG] 40 mg PO DAILY 04/11/20 [History] Hx Tetanus, Diphtheria Vaccination/Date Given: Yes Hx Influenza Vaccination/Date Given: Yes Hx Pneumococcal Vaccination/Date Given: Yes Travel Risk - International Travel Have you traveled outside of the country in past 3 weeks: No - Coronavirus Screening Are you exhibiting any of the following symptoms?: No Close contact with a COVID-19 positive Pt in past 14-21 Days: No - Vaccine Status Have you recieved a Covid-19 vaccination: Yes 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 - Vaccination Dates Date of 2cond Vaccination (if applicable): unknown - Review of Systems Constitutional: No Fever, No Chills Eyes: No Symptoms Ears, Nose, & Throat: No Symptoms Respiratory: No Cough, No Dyspnea Cardiac: No Chest Pain, No Edema, No Syncope Abdominal/Gastrointestinal: No Abdominal Pain, No Nausea, No Vomiting, No Diarrhea Genitourinary Symptoms: No Dysuria Musculoskeletal: Deformity (Deformity swelling pain at the base of the right middle ring and little finger.), Joint Pain, Joint Swelling, No Back Pain, No Neck Pain Skin: No Rash Neurological: No Dizziness, No Focal Weakness, No Sensory Changes Psychological: No Symptoms Endocrine: No Symptoms All Other Systems: Reviewed and Negative - Past Medical History Pertinent Past Medical History: Yes Neurological History: No Pertinent History ENT History: No Pertinent History Cardiac History: Hypertension Respiratory History: No Pertinent History Endocrine Medical History: Hypothyroidism Musculoskeletal History: Arthritis, Osteoporosis GI Medical History: Gallbladder Disease History: No Pertinent History Psycho-Social History: No Pertinent History Female Reproductive Disorders: No Pertinent History Other Medical History: Pt uses pessary for incontinence. "I didnt need surgery and MD thought this would be better than surgery". - Past Surgical History Past Surgical History: Yes Neuro Surgical History: No Pertinent History Cardiac: Cardiac Catheterization Respiratory: No Pertinent History Gastrointestinal: Cholecystectomy, Hernia Repair Genitourinary: No Pertinent History Musculoskeletal: Orthopedic Surgery Female Surgical History: Hysterectomy Other Surgical History: right hip fx repair - Social History Smoking Status: Never smoker Exposure to second hand smoke: No Drug Use: none Patient Lives Alone: No - Nursing Vital Signs Nursing Vital Signs: Initial Vital Signs Temperature 97.7 F 02/18/23 12:07 Pulse Rate 75 02/18/23 12:07 Respiratory Rate 20 02/18/23 12:07 Blood Pressure 224/98 02/18/23 12:07 O2 Sat by Pulse Oximetry 97 02/18/23 12:07 Pain Scale Pain Intensity 10 - Physical Exam General Appearance: moderate distress, alert Eyes, Ears, Nose, Throat Exam: moist mucous membranes Neck Exam: non-tender, supple Cardiovascular/Respiratory Exam: chest non-tender, normal breath sounds, regular rate/rhythm, no respiratory distress Abdominal Exam: non-tender, No guarding Back Exam: normal inspection, No vertebral tenderness Shoulder Exam: normal inspection, non-tender Elbow/Forearm Exam: normal inspection, non-tender Wrist Exam: normal inspection, non-tender Hand Exam: bone tenderness, deformity, limited ROM, soft tissue tenderness, swelling (There is deformity swelling and pain at the base of the right middle ring and little finger.) Neuro/Tendon Exam: normal sensation, normal motor functions, normal tendon functions, No tendon injury visualized Mental Status Exam: alert, oriented x 3, cooperative Skin Exam: normal color, warm, dry SpO2 Interpretation: normal SpO2: 97 O2 Delivery: Room Air Procedures - Splinting Time of Procedure: 13:29 Location of Splint: Hand, Forearm Type of Splint: Other (Ortho-Glass gutter splint right forearm to fingers) Splint Applied By: ED Nurse Pre-Proc Neuro Vasc Exam: normal Post-Proc Neuro Vasc Exam: neurovascular intact - Course Nursing assessment & vital signs reviewed: Yes - Radiology Exams Hand X-ray Interpretation: Reviewed by me Right Knee X-ray Interpretation: Reviewed by me Ordered Tests: Active Orders 24 hr Category Date Time Status Splint STAT Care 02/18/23 13:19 Active HAND (MINIMUM 3 VIEWS) Stat Exams 02/18/23 12:11 Completed KNEE (1 OR 2 VIEW) Stat Exams 02/18/23 12:12 Completed CBC W DIFF Stat Lab 02/18/23 12:29 Completed CMP Stat Lab 02/18/23 12:29 Received Medication Summary Discontinued Medications Generic Name Dose Route Start Last Admin Trade Name Jaz PRN Reason Stop Dose Admin Hydromorphone HCl 1 mg 02/18/23 12:10 02/18/23 12:24 Hydromorphone 1 Mg/1ml Inj IV 02/18/23 12:11 1 mg STAT ONE Administration Hydromorphone HCl Confirm 02/18/23 12:11 Hydromorphone 1 Mg/1ml Inj Administered 02/18/23 12:12 Dose 1 mg .ROUTE .STK-MED ONE Hydromorphone HCl 1 mg 02/18/23 12:53 02/18/23 13:07 Hydromorphone 1 Mg/1ml Inj IV 02/18/23 12:54 1 mg STAT ONE Administration Hydromorphone HCl Confirm 02/18/23 12:54 Hydromorphone 1 Mg/1ml Inj Administered 02/18/23 12:55 Dose 1 mg .ROUTE .STK-MED ONE Hydromorphone HCl Confirm 02/18/23 13:06 Hydromorphone 1 Mg/1ml Inj Administered 02/18/23 13:07 Dose 1 mg .ROUTE .STK-MED ONE Ondansetron HCl 4 mg 02/18/23 13:04 02/18/23 13:07 Ondansetron Hcl 4 Mg/2 Ml Vial IV 02/18/23 13:05 4 mg STAT ONE Administration Ondansetron HCl Confirm 02/18/23 13:06 Ondansetron Hcl 4 Mg/2 Ml Vial Administered 02/18/23 13:07 Dose 4 mg .ROUTE .STK-MED ONE Lab/Rad Data: Laboratory Result Diagrams 02/18/23 12:29 Laboratory Results 02/18/23 Range/Units 12:29 WBC 9.2 (4.0-10.5) x10^3/uL RBC 3.88 L (4.1-5.4) x10^6/uL Hgb 11.6 L (12.0-16.0) g/dL Hct 37.5 (35-47) % MCV 96.6 (78-100) fL MCH 29.9 (26-32) pg MCHC 30.9 L (32-36) g/dL RDW 15.5 H (11.5-14.0) % Plt Count 450 (150-450) x10^3/uL MPV 10.8 (7.5-11.0) fL Gran % 56.5 (36.0-66.0) % Immature Gran % (Auto) 1.3 H (0.00-0.4) % Nucleat RBC Rel Count 0.0 (0.00-0.1) % Eos # (Auto) 0.26 (0-0.5) x10^3/uL Immature Gran # (Auto) 0.12 H (0.00-0.03) x10^3u/L Absolute Lymphs (auto) 2.60 (1.0-4.6) x10^3/uL Absolute Monos (auto) 0.95 (0.0-1.3) x10^3/uL Absolute Nucleated RBC 0.00 (0.00-0.01) x10^3u/L Lymphocytes % 28.2 (24.0-44.0) % Monocytes % 10.3 (0.0-12.0) % Eosinophils % 2.8 (0.00-5.0) % Basophils % 0.9 (0.0-0.4) % Absolute Granulocytes 5.21 (1.4-6.9) x10^3/uL Basophils # 0.08 (0-0.4) x10^3/uL - Progress Progress: improved Medical Desision Making - Independent Historian Additional History obtained from: Family - Discussion of managment Care discussed with:: specialist (Dr. Olmos hand surgeon [place]) Reviewed:: Test results Agreed on:: Treatment plan, need for follow-up Will see patient: In office - Diagnostic Testing Diagnostic test were ordered, analyzed, and reviewed by me: Yes Radiological Interpretation: Reviewed by me - Risk of complications The pt has a mod risk of morbidity or mortality based on: Need for prescription drug management, Need for minor surgical intervention in patient with know risk factors - Departure Departure Disposition: Home Clinical Impression: Closed fractures of multiple sites of phalanx of finger of right hand Condition: Stable Critical Care Time: No Referrals: STEVE RUDOLPH MD [Primary Care Provider] - Follow up/PCP as directed Instructions: Hand Fracture (DC)
[2023-02-18] MEDS ORDERED: Apresoline 25 MG TABLET PO ONE (13:46)
[2023-02-18] MEDS ORDERED: CLONIDINE 0.1 MG TABLET PO ONE (14:16)
[2023-02-18] MEDS ORDERED: CLONIDINE 0.1 MG TABLET ONE (14:17)
[2023-02-18 14:46] VITALS: BP 180/70; PULSE 69; O2SAT 97
== END 2023-02-18 14:56 | disposition home or self-care (01) ==
LOC: ED 12:06
DX: S62.612A Displaced fracture of proximal phalanx of right middle finger, initial encounter for closed fracture (principal); S62.614A Displaced fracture of proximal phalanx of right ring finger, initial encounter for closed fracture; S62.616A Displaced fracture of proximal phalanx of right little finger, initial encounter for closed fracture; W01.0XXA Fall on same level from slipping, tripping and stumbling without subsequent striking against object, initial encounter; Y93.H9 Activity, other involving exterior property and land maintenance, building and construction; Y92.007 Garden or yard of unspecified non-institutional (private) residence as the place of occurrence of the external cause; M25.561 Pain in right knee; I10 Essential (primary) hypertension; Z79.899 Other long term (current) drug therapy
CPT/HCPCS: 29125; 36000; 36415; 73130; 73560; 80053; 85025; 96374; 96375; 96376; 99284; J1170; J2405; A9270-GY

== ENCOUNTER 2023-05-31 14:29 | Observation (INO) | payer MEDICARE, OTHER ==
[2023-05-31 15:27] LABS: Absolute Neutrophil Ct (ANC) 5.28 x10^3/uL (1.4-6.9); BASOPHIL % 0.8 % (0.0-0.4); Basophil (Absolute #) 0.07 x10^3/uL (0-0.4); Eosinophil (Absolute #) 0.33 x10^3/uL (0-0.5); Hematocrit 35.8 % (35-47); Hemoglobin 11.3 g/dL (12.0-16.0); IMMATURE GRAN # 0.05 x10^3u/L (0.00-0.03); IMMATURE GRAN % 0.6 % (0.00-0.4); Lymphocyte (Absolute #) 1.65 x10^3/uL (1.0-4.6); Lymphocytes % 19.8 % (24.0-44.0); Mean Cell Volume 96.2 fL (78-100); Mean Corpuscular Hemoglobin 30.4 pg (26-32); Mean Corpuscular Hgb Concent. 31.6 g/dL (32-36); Mean Platelet Volume 10.6 fL (7.5-11.0); Monocyte (Absolute #) 0.96 x10^3/uL (0.0-1.3); Monocytes % 11.5 % (0.0-12.0); Neutrophil % 63.3 % (36.0-66.0); Platelet Count 368 x10^3/uL (150-450); Red Blood Count 3.72 x10^6/uL (4.1-5.4); Red Cell Distribution Width 14.1 % (11.5-14.0); White Blood Count 8.3 x10^3/uL (4.0-10.5)
[2023-05-31 15:42] LABS: ALBUMIN 4.2 g/dL (3.5-5.0); ALKALINE PHOSPHATASE 291 U/L (38-126); ANION GAP 13.6 MEQ/L (5-15); BLOOD UREA NITROGEN 20 mg/dL (7-17); CHLORIDE 103 mmol/L (98-107); Calcium 9.7 mg/dL (8.4-10.2); Carbon Dioxide 28 mmol/L (22-30); Creatinine 1 0.83 mg/dL (0.52-1.04); EST GLOMERULAR FILTRATION RATE > 60.0 ML/MIN; Glucose 107 mg/dL (74-106); Potassium 4.2 mmol/L (3.5-5.1); SGOT/AST 24 U/L (14-36); SGPT/ALT 22 U/L (0-35); SODIUM 140 mmol/L (137-145); Total Protein 7.6 g/dL (6.3-8.2)
[2023-05-31 15:53] LABS: NT PRO BNPII 2350 pg/mL (<300); TROPONIN < 0.012 ng/mL (0.000-0.034)
--- NOTE | 2023-05-31 16:11 | ERPHSYRPT ---
- History of Present Illness Time Seen by Provider: 05/31/23 16:08 Source: patient Exam Limitations: no limitations Patient Subjective Stated Complaint: Patient was in PT today and they told her that her B/P was high. Patient is unsure how long it has been elevated. She de nies pain or SOB. Triage Nursing Assessment: Patient ambulated back to ER. She is alert and oriented. No SOB. GRIMES WNL. Slight edema to BLE; non-pitting. Physician History: Patient is an 82-year-old female presents to our ED as a referral from physical therapy due to elevated blood pressure. Patient states that she has a history of hypertension and has been taking all her home meds as recommended. She advises that her insurance company just changed her lisinopril to a different brand. Otherwise everything has been as usual. Patient is asymptomatic. No chest pain or shortness of breath. No nausea vomiting or diaphoresis. On physical exam however patient was found to have some abdominal pain. Patient's son is at bedside. They voiced no other complaints or concerns at this time. Portions of this note were created with voice recognition technology. There may be grammatical, spelling, punctuation or sound alike errors Timing/Duration: today Severity: mild Modifying Factors: Improves With: nothing Associated Symptoms: denies symptoms Allergies/Adverse Reactions: celecoxib [From Celebrex] Allergy (Verified 05/31/23 14:39) Home Medications: Metoprolol Succinate 50 mg [Toprol Xl 50 MG] 50 mg PO HS 10/07/17 [History] Levothyroxine Sodium 75 Mcg [Synthroid 75 Mcg] 75 mcg PO DAILY 03/09/18 [History] Oxycodone HCl/Acetaminophen [Oxycodone-Acetaminophn 7.5-325] 1 each PO Q4-6HPRN PRN 05/19/19 [History] Furosemide 40 mg [Lasix 40 MG] 20 mg PO DAILY PRN PRN 06/12/19 [History] Latanoprost [Xalatan] 2.5 ml OP HS 06/12/19 [History] Lisinopril 20 mg [Zestril 20 MG] 40 mg PO DAILY 04/11/20 [History] Multivitamin with Minerals [Daily Vitamin Formula-Minerals] 1 tab PO HS 05/31/23 [History] Hx Tetanus, Diphtheria Vaccination/Date Given: Yes Hx Influenza Vaccination/Date Given: Yes Hx Pneumococcal Vaccination/Date Given: Yes Immunizations Up to Date: Yes Travel Risk - International Travel Have you traveled outside of the country in past 3 weeks: No - Coronavirus Screening Are you exhibiting any of the following symptoms?: No Close contact with a COVID-19 positive Pt in past 14-21 Days: No - Vaccine Status Have you recieved a Covid-19 vaccination: Yes Operator Cavity Pump: Moderna - Vaccination Dates Date of 2cond Vaccination (if applicable): unknown - Review of Systems Constitutional: No Symptoms, No Fever, No Chills Eyes: No Symptoms Ears, Nose, & Throat: No Symptoms Respiratory: No Symptoms, No Cough, No Dyspnea Cardiac: No Symptoms, No Chest Pain, No Edema, No Syncope Abdominal/Gastrointestinal: No Symptoms, No Abdominal Pain, No Nausea, No Vomiting, No Diarrhea Genitourinary Symptoms: No Symptoms, No Dysuria Musculoskeletal: No Symptoms, No Back Pain, No Neck Pain Skin: No Symptoms, No Rash Neurological: No Symptoms, No Dizziness, No Focal Weakness, No Sensory Changes Psychological: No Symptoms Endocrine: No Symptoms Hematologic/Lymphatic: No Symptoms Immunological/Allergic: No Symptoms All Other Systems: Reviewed and Negative - Past Medical History Pertinent Past Medical History: Yes Neurological History: No Pertinent History ENT History: Cataracts, Glaucoma, Macular Degeneration Cardiac History: Hypertension Respiratory History: No Pertinent History Endocrine Medical History: Hypothyroidism Musculoskeletal History: Arthritis GI Medical History: Gallbladder Disease History: No Pertinent History Psycho-Social History: No Pertinent History Female Reproductive Disorders: No Pertinent History Other Medical History: VISION: CATARACTS REMOVED, MACULAR DEGENERATION, GLAUCOMA. SX: 2 GALLSTONES REMOVED(1971), HYSTERECTOMY (1979), HERNIA REPAIR, 2003 RIGHT FEMUR IM NAILING VS. ORIF, PAIN MANAGEMENT PATIENT. - Past Surgical History Past Surgical History: Yes Neuro Surgical History: No Pertinent History Cardiac: Cardiac Catheterization Respiratory: No Pertinent History Gastrointestinal: Cholecystectomy, Hernia Repair Genitourinary: No Pertinent History Musculoskeletal: Orthopedic Surgery Female Surgical History: Hysterectomy Other Surgical History: right hip fx repair - Social History Smoking Status: Never smoker Exposure to second hand smoke: No Drug Use: none Patient Lives Alone: No - Nursing Vital Signs Nursing Vital Signs: Initial Vital Signs Temperature 98.4 F 09/12/23 14:30 Pulse Rate 68 05/31/23 14:30 Respiratory Rate 16 05/31/23 14:30 Blood Pressure 243/103 05/31/23 14:30 O2 Sat by Pulse Oximetry 99 05/31/23 14:30 Pain Scale Pain Intensity 5 - Physical Exam General Appearance: no apparent distress, alert Eye Exam: PERRL/EOMI, eyes nml inspection Ears, Nose, Throat Exam: normal ENT inspection, TMs normal, pharynx normal, moist mucous membranes Neck Exam: normal inspection, non-tender, supple, full range of motion Respiratory Exam: normal breath sounds, lungs clear, airway intact, No respiratory distress Cardiovascular Exam: regular rate/rhythm, normal heart sounds, normal peripheral pulses Gastrointestinal/Abdomen Exam: soft, normal bowel sounds, No tenderness, No mass Back Exam: normal inspection, normal range of motion, No CVA tenderness, No vertebral tenderness Extremity Exam: normal inspection, normal range of motion, pelvis stable Neurologic Exam: alert, oriented x 3, cooperative, normal mood/affect, nml cerebellar function, nml station & gait, sensation nml, No motor deficits Skin Exam: normal color, warm, dry, No rash Lymphatic Exam: No adenopathy SpO2 Interpretation: normal SpO2: 98 O2 Delivery: Room Air - Course Nursing assessment & vital signs reviewed: Yes EKG Interpreted by Me: RATE (68), Sinus Rhythm, NORMAL AXIS, NORMAL INTERVALS - CT Exams Abdomen/Pelvis CT Interpretation: Tele-radiologist Report (Abnormal distended biliary tree due to mass predominantly in common bile duct mass worrisome for malignancy such as cholangiocarcinoma. Common bile duct up to 2.2 cm. Stable hiatal hernia with partial intrathoracic stomach and diffuse fecal stasis) Ordered Tests: Active Orders 24 hr Category Date Time Status Blueprint Cutter STAT Care 05/31/23 15:12 Active EKG-ER Only STAT Care 05/31/23 15:12 Active IV Insertion STAT Care 05/31/23 15:12 Active IV Insertion-2nd Peripheral STAT Care 05/31/23 17:50 Active Pulse Oximetry (ED) STAT Care 05/31/23 15:12 Active ABDOMEN AND PELVIS W CONTRAST [CT] Stat Exams 05/31/23 20:23 Ordered ABDOMEN AND PELVIS W/0 CONTRAS [CT] Stat Exams 05/31/23 16:06 Completed CBC W DIFF Stat Lab 05/31/23 14:45 Completed CMP Stat Lab 05/31/23 14:45 Completed NT PRO BNPII Stat Lab 05/31/23 14:45 Completed TROPONIN Q4H Lab 05/31/23 14:45 Completed TROPONIN Q4H Lab 05/31/23 19:03 Completed TROPONIN Q4H Lab 05/31/23 23:15 Ordered UA W/RFX UR CULTURE Stat Lab 05/31/23 15:14 Completed Medication Summary Generic Name Dose Route Start Last Admin Trade Name Freq PRN Reason Stop Dose Admin Nicardipine HCl 25 mg/ Sodium 250 mls @ 50 mls/hr 05/31/23 16:17 05/31/23 21 :36 Chloride IV 06/30/23 16:16 25 ml/hr .Q5H PRN 25 mls/hr HYPERTENSION Titration Protocol Nicardipine HCl 25 mg/ Sodium 250 mls @ 50 mls/hr 05/31/23 16:38 Chloride IV 06/30/23 16:37 .Q5H PRN HYPERTENSION Protocol Discontinued Medications Generic Name Dose Route Start Last Admin Trade Name Freq PRN Reason Stop Dose Admin Acetaminophen 650 mg 05/31/23 21:50 05/31/23 21:55 Acetaminophen 325 Mg Tablet PO 05/31/23 21:51 650 mg STAT STA Administration Acetaminophen Confirm 05/31/23 21:55 Acetaminophen 325 Mg Tablet Administered 05/31/23 21:56 Dose 650 mg .ROUTE .STK-MED ONE Sodium Chloride Confirm 05/31/23 16:40 Sodium Chloride 0.9% 250 Ml Administered 05/31/23 16:41 Dose 250 mls @ ud IV .STK-MED ONE Nicardipine HCl Confirm 05/31/23 16:40 Nicardipine Hcl 25mg/10ml Vial Administered 05/31/23 16:41 Dose 25 mg IV .STK-MED ONE Lab/Rad Data: Laboratory Result Diagrams 05/31/23 14:45 05/31/23 14:45 Laboratory Results 05/31/23 05/31/23 05/31/23 Range/Units 19:03 15:14 14:45 WBC (4.0-10.5) x10^3/uL RBC (4.1-5.4) x10^6/uL Hgb (12.0-16.0) g/dL Hct (35-47) % MCV (78-100) fL MCH (26-32) pg MCHC (32-36) g/dL RDW (11.5-14.0) % Plt Count (150-450) x10^3/uL MPV (7.5-11.0) fL Gran % (36.0-66.0) % Immature Gran % (Auto) (0.00-0.4) % Nucleat RBC Rel Count (0.00-0.1) % Eos # (Auto) (0-0.5) x10^3/uL Immature Gran # (Auto) (0.00-0.03) x10^3u/L Absolute Lymphs (auto) (1.0-4.6) x10^3/uL Absolute Monos (auto) (0.0-1.3) x10^3/uL Absolute Nucleated RBC (0.00-0.01) x10^3u/L Lymphocytes % (24.0-44.0) % Monocytes % (0.0-12.0) % Eosinophils % (0.00-5.0) % Basophils % (0.0-0.4) % Absolute Granulocytes (1.4-6.9) x10^3/uL Basophils # (0-0.4) x10^3/uL Sodium (137-145) mmol/L Potassium (3.5-5.1) mmol/L Chloride (98-107) mmol/L Carbon Dioxide (22-30) mmol/L Anion Gap (5-15) MEQ/L BUN (7-17) mg/dL Creatinine (0.52-1.04) mg/dL Estimated GFR ML/MIN Glucose (74-106) mg/dL Calcium (8.4-10.2) mg/dL Total Bilirubin (0.2-1.3) mg/dL AST (14-36) U/L ALT (0-35) U/L Alkaline Phosphatase (38-126) U/L Troponin I < 0.012 < 0.012 (0.000-0.034) ng/mL NT-Pro-B Natriuret Pep 2350 (<300) pg/mL Serum Total Protein (6.3-8.2) g/dL Albumin (3.5-5.0) g/dL Urine Color Yellow (Yellow) Urine Appearance Clear (Clear) Urine pH 6.5 (4.6-8.0) Ur Specific [place] 1.015 (1.005-1.030) Urine Protein Negative (Negative) Urine Glucose (UA) Negative (Negative) mg/dL Urine Ketones Negative (Negative) Urine Blood Negative (Negative) Urine Nitrite Negative (Negative) Urine Bilirubin Negative (Negative) Urine Urobilinogen 0.2 (0.2) mg/dL Ur Leukocyte Esterase Negative (Negative) U Hyaline Cast (Auto) NONE SEEN (0-2) /LPF Urine Microscopic RBC 0-2 (0-5) /HPF Urine Microscopic WBC 0-2 (0-5) /HPF Ur Epithelial Cells None Seen (None Seen) /HPF Urine Bacteria None Seen (None Seen) /HPF Urine Culture Reflexed NO (NO) 05/31/23 05/31/23 Range/Units 14:45 14:45 WBC 8.3 (4.0-10.5) x10^3/uL RBC 3.72 L (4.1-5.4) x10^6/uL Hgb 11.3 L (12.0-16.0) g/dL Hct 35.8 (35-47) % MCV 96.2 (78-100) fL MCH 30.4 (26-32) pg MCHC 31.6 L (32-36) g/dL RDW 14.1 H (11.5-14.0) % Plt Count 368 (150-450) x10^3/uL MPV 10.6 (7.5-11.0) fL Gran % 63.3 (36.0-66.0) % Immature Gran % (Auto) 0.6 H (0.00-0.4) % Nucleat RBC Rel Count 0.0 (0.00-0.1) % Eos # (Auto) 0.33 (0-0.5) x10^3/uL Immature Gran # (Auto) 0.05 H (0.00-0.03) x10^3u/L Absolute Lymphs (auto) 1.65 (1.0-4.6) x10^3/uL Absolute Monos (auto) 0.96 (0.0-1.3) x10^3/uL Absolute Nucleated RBC 0.00 (0.00-0.01) x10^3u/L Lymphocytes % 19.8 L (24.0-44.0) % Monocytes % 11.5 (0.0-12.0) % Eosinophils % 4.0 (0.00-5.0) % Basophils % 0.8 (0.0-0.4) % Absolute Granulocytes 5.28 (1.4-6.9) x10^3/uL Basophils # 0.07 (0-0.4) x10^3/uL Sodium 140 (137-145) mmol/L Potassium 4.2 (3.5-5.1) mmol/L Chloride 103 (98-107) mmol/L Carbon Dioxide 28 (22-30) mmol/L Anion Gap 13.6 (5-15) MEQ/L BUN 20 H (7-17) mg/dL Creatinine 0.83 (0.52-1.04) mg/dL Estimated GFR > 60.0 ML/MIN Glucose 107 H (74-106) mg/dL Calcium 9.7 (8.4-10.2) mg/dL Total Bilirubin 0.40 (0.2-1.3) mg/dL AST 24 (14-36) U/L ALT 22 (0-35) U/L Alkaline Phosphatase 291 H (38-126) U/L Troponin I (0.000-0.034) ng/mL NT-Pro-B Natriuret Pep (<300) pg/mL Serum Total Protein 7.6 (6.3-8.2) g/dL Albumin 4.2 (3.5-5.0) g/dL Urine Color (Yellow) Urine Appearance (Clear) Urine pH (4.6-8.0) Ur Specific [place] (1.005-1.030) Urine Protein (Negative) Urine Glucose (UA) (Negative) mg/dL Urine Ketones (Negative) Urine Blood (Negative) Urine Nitrite (Negative) Urine Bilirubin (Negative) Urine Urobilinogen (0.2) mg/dL Ur Leukocyte Esterase (Negative) U Hyaline Cast (Auto) (0-2) /LPF Urine Microscopic RBC (0-5) /HPF Urine Microscopic WBC (0-5) /HPF Ur Epithelial Cells (None Seen) /HPF Urine Bacteria (None Seen) /HPF Urine Culture Reflexed (NO) - Progress Progress: improved Progress Note: 05/31/23 16:19 Case discussed with who agrees with initiating nicardipine for management of hypertensive urgency 05/31/23 22:09 CT scan with contrast again shows abnormal distended biliary tree due to mass predominantly in common bile duct mass worrisome for malignancy such as cholangiocarcinoma. CBD up to 2.2 cm. Stable hiatal hernia with partial intrathoracic stomach and diffuse fecal stasis 05/31/23 22:42 Patient is 82-year-old female presents to our ED for evaluation and treatment of hypertensive urgency. Patient started on nicardipine drip. Physical exam reveals mild epigastric pain. CT scan reveals an incidental mass in the right upper quadrant consistent with cholangiocarcinoma. Radiologist recommended MRI and MR CP. We contacted several different local hospitals. Patient was excepted by [facility] at 7:38 PM by . Patient was also excepted at [facility] by Dr. Berry at 6:57 PM. We contacted [facility] who felt patient could be worked up as an outpatient. [facility] immediate transfer [facility]. Unfortunately we were unable to secure transport to any of the accepting facilities, [facility] and [facility]. Patient admitted to our hospital overnight for anticipated transfer in the morning. Tests ordered include EKG, which revealed normal sinus rhythm. CBC reveals a mild normocytic anemia at 11.3. CMP essentially unremarkable. Troponin negative x2. Urinalysis negative for urinary tract infection. Patient started on a nicardipine drip due to systolic blood pressure in the 2 20-2 30 range. Patient later complained of a slight headache. Unchanged neurologic exam. Patient given an oral dose of acetaminophen. Case discussed with Dr. Warner at 10:26 PM who excepts admission to observation. Plan of care discussed with patient. She agrees to admission [facility] for further evaluation and treatment. Portions of this note were created with voice recognition technology. There may be grammatical, spelling, punctuation or sound alike errors Complexity of problem addressed is high, severe hypertension/hypertensive urgency which pose a threat to bodily function. Systolic blood pressure in the 220-230 range. Critical care time is 1 hour. After a short observation time to assess for normalization of blood pressure nicardipine drip was urgently initiated to prevent deterioration. Complexity of data reviewed and analyzed is extensive. Test ordered test reviewed. Clinical correlation made between the laboratory findings, imaging studies and history and physical examination. Management was discussed with several physicians including Dr. Aggarwal, Dr. Berry, Dr. Hernandez of [facility], of [facility] and our excepting hospitalist . Risk of complication and or risk morbidity/mortality of patient management is high. Patient will require hospitalization/ICU care for further evaluation and treatment. Patient agrees to admission to [facility] for further evaluation and treatment. Vitals now stable. Time spent to admit patient is approximately 20 minutes. Plan of care established for shared decision making. Portions of this note were created with voice recognition technology. There may be grammatical, spelling, punctuation or sound alike errors Will see patient in: hospital (observation) Counseled pt/family regarding: lab results, diagnosis, rad results - Departure Departure Disposition: Observation Clinical Impression: Hypertensive urgency, Hiatal hernia, Cholangiocarcinoma Condition: Stable Critical Care Time: No Referrals: STEVE RUDOLPH MD [Primary Care Provider] - Follow up/PCP as directed
[2023-05-31] MEDS ORDERED: CARDENE*** 25 MG in Sodium Chloride 0.9% 250 ML 240 ML IV PRN (16:38)
[2023-05-31] MEDS ORDERED: CARDENE IV ONE ×2 (16:40→22:53)
[2023-05-31] MEDS ORDERED: Sodium Chloride 0.9% 250 ML 250 ML IV ONE ×2 (16:40→22:54)
[2023-05-31] MEDS: CARDENE*** 25 MG in Sodium Chloride 0.9% 250 ML 240 ML IV PRN ×2 (16:44→22:57)
[2023-05-31 17:28] LABS: Appearance Clear (Clear); Bacteria None Seen /HPF (None Seen); Bilirubin Negative (Negative); Blood Negative (Negative); Epithelial Cells None Seen /HPF (None Seen); Glucose, Urine Negative (Negative); Hyaline Casts NONE SEEN /LPF (0-2); Ketones Negative (Negative); Leukocyte Esterase Negative (Negative); Nitrite Negative (Negative); Ph 6.5 (4.6-8.0); Protein,Urine Dip Negative (Negative); RBC 0-2 /HPF (0-5); Specific Gravity 1.015 (1.005-1.030); Urobilinogen 0.2 mg/dL (0.2); WBC 0-2 /HPF (0-5)
[2023-05-31 17:38] LABS: ADD URINE CULTURE? NO (NO)
--- NOTE | 2023-05-31 17:57 | XRAY ---
CLINICAL HISTORY:pain COMPARISON:None TECHNIQUE:CT scan of the abdomen and pelvis was performed without IV contrast. No oral contrast. Coronal and sagittal reconstructive images were also obtained. FINDINGS: A scan through the lower chest reveals an unremarkable lung basis and heart. Abdomen: Large sliding hiatus hernia noted. The liver is of average size. Moderately dilated IHBRs. A sizable ill-defined hepatic hilar mass lesion is noted measuring about 4.6 x 4.5 cm. It is seeen inseparable from duodenum. The spleen, pancreas, and adrenal glands are unremarkable. The kidneys are unremarkable. They are normal in size and shape. No calculi or hydronephrosis. Prominent extrarenal pelvis noted on both sides. The gallbladder is distended and shows no definite stones. There is no evidence of wall thickening/ pericholecystic collection. The ascending colon, the transverse colon, the descending colon, visualized small bowel loops are unremarkable. There is no evidence of significant enlargement of the mesenteric or retroperitoneal lymph nodes. Pelvis: The urinary bladder is unremarkable. The rectosigmoid colon is unremarkable. The uterus is not visualized, likely surgically removed. No adnexal mass The pelvic vasculature is unremarkable. No evidence of pelvic lymphadenopathy. No definite bony abnormalities could be depicted. IMPRESSION: Picture of hepatic hilar mass lesion, mostly central cholangiocarcinoma, for MRI study with contrast and MRCP. Electronically Signed by: Narciso Liriano MD. (05/31/2023 16:56:50 ADVERTISING CLERK)
[2023-05-31] MEDS ORDERED: TYLENOL 325 MG PO STA (21:50)
[2023-05-31] MEDS ORDERED: TYLENOL 325 MG ONE (21:55)
[2023-06-01 00:40] VITALS: TEMP 97.3
[2023-06-01] MEDS ORDERED: Adalat CC 30 MG TABLET PO SCH (01:20)
[2023-06-01] MEDS ORDERED: TYLENOL 325 MG PO PRN (01:34)
[2023-06-01] MEDS: HYDROCODONE-ACETAMIN 10-325 MG PO PRN ×2 (01:40→07:34)
--- NOTE | 2023-06-01 01:42 | PCM.HP ---
History of Present Illness - Chief Complaint Chief Complaint: Hypertensive urgency, cholangiocarcinoma Date: 05/31/23 History of Present Illness: 82 y/o F with h/o hypertension and hypothyroidism, admitted with liver mass. Patient was at physical therapy for her chronic right hip pain when she was noted to have BP up in the 240s. Patients states she was asymptomatic at the time, except for her chronic right hip pain. She denies headache, chest pain, dyspnea, vision changes. She has been compliant with her medications, and took her lisinopril this morning (although had not yet taken her evening Toprol XL dose.) On arrival at the ED, her BP was still in the 230s, and she was started on a nicardipine drip. On exam, she was noted to have RUQ tenderness by ED Dr. Mccoy. Patient denied noting any pain or tenderness there previously. She had her gallbladder removed decades ago (when her daughter was an infant) and has noted no problems. Denies itching, jaundice, or change in appetite. 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 She was accepted for transfer to [facility] and [facility]; however, no transportation was available for her overnight. She is being admitted here to manage her blood pressure until transportation can be arranged tomorrow morning. Currently she is down to 2.5 mg/hr on her nicardipine drip, with BP in 140s/70s. Her only complaint now is her R hip pain, for which she normally takes Percocet 7.5 and gets q6mo injections by Dr. Ga. - Review of Systems Constitutional: No Fever, No Chills, No Lethargy, No Malaise, No Weight Loss Eyes: No Symptoms, No Vision Changes Ears, Nose, & Throat: No Hearing Changes, No Tinnitus Respiratory: No Cough, No Orthopnea, No Short Of Breath Cardiac: No Chest Pain Abdominal/Gastrointestinal: No Abdominal Pain, No Nausea, No Diarrhea Genitourinary Symptoms: No Symptoms Musculoskeletal: Joint Pain (right hip) Skin: No Symptoms Neurological: No Symptoms All Other Systems: Reviewed and Negative Medications & Allergies Home Medications: Home Medication List Metoprolol Succinate 50 mg [Toprol Xl 50 MG] 50 mg PO QHS 10/07/17 [History Confirmed 06/01/23] Levothyroxine Sodium 75 Mcg [Synthroid 75 Mcg] 75 mcg PO DAILY 03/09/18 [History Confirmed 06/01/23] Oxycodone HCl/Acetaminophen [Oxycodone-Acetaminophn 7.5-325] 1 each PO Q4HPRN PRN 05/19/19 [History Confirmed 06/01/23] Latanoprost [Xalatan] 2.5 ml OP HS 06/12/19 [History Confirmed 06/01/23] Furosemide 20 mg [Lasix 20 mg] 20 mg PO DAILY 05/31/23 [History Confirmed 06/01/23] Multivitamin with Minerals [Daily Vitamin Formula-Minerals] 1 tab PO HS 05/31/23 [History Confirmed 06/01/23] lisinopriL [Lisinopril] 40 mg PO DAILY 05/31/23 [History Confirmed 06/01/23] Allergies/Adverse Reactions: Allergies Allergy/AdvReac Type Severity Reaction Status Date / Time celecoxib [From Celebrex] Allergy Verified 05/31/23 14:39 - Past Medical History Past Medical History: Yes Neurological History: No Pertinent History ENT History: Cataracts, Glaucoma, Macular Degeneration Cardiac History: Hypertension Respiratory History: No Pertinent History Endocrine Medical History: Hypothyroidism Musculoskelatal History: Fractures, Osteoarthritis GI Medical History: Hernia History: No Pertinent History Pyscho-Social History: No Pertinent History Reproductive Disorders: Other Comment: VISION: CATARACTS REMOVED, MACULAR DEGENERATION, GLAUCOMA. SX: 2 GALLSTONES REMOVED(1971), HYSTERECTOMY (1979), HERNIA REPAIR, 2003 RIGHT FEMUR IM NAILING VS. ORIF, PAIN MANAGEMENT PATIENT, Bladder prolapse - Female History Are you now?: No - Past Surgical History Past Surgical History: Yes Neuro Surgical History: No Pertinent History Cardiac History: Cardiac Catheterization Respiratory Surgery: No Pertinent History GI Surgical History: Appendectomy, Cholecystectomy, Hernia Repair Genitourinary Surgical Hx: No Pertinent History Musculskeletal Surgical Hx: Orthopedic Surgery Female Surgical History: Hysterectomy Other Surgical History: right hip fx repair - Social History Smoking Status: Never smoker Exposure to second hand smoke: No Alcohol: None Drug Use: none Significant Family History: no pertinent family hx - Physical Exam Vital Signs: Vital Signs - 24 hr Temp Pulse Resp BP BP Pulse Ox 06/01/23 01:16 74 22 127/57 94 L 06/01/23 01:00 79 18 120/60 120/60 96 06/01/23 00:45 72 17 143/69 143/69 94 L 06/01/23 00:31 72 18 138/66 94 L 06/01/23 00:30 77 16 138/66 06/01/23 00:15 75 17 122/66 06/01/23 00:00 66 128/67 96 05/31/23 23:50 73 20 124/64 93 L 05/31/23 23:49 97.3 F 62 16 124/64 97 05/31/23 23:30 151/71 05/31/23 23:20 69 10 L 141/69 95 05/31/23 23:10 68 12 137/71 95 05/31/23 23:00 72 21 145/78 93 L 05/31/23 22:53 98 05/31/23 22:40 147/78 05/31/23 22:30 71 22 149/71 94 L 05/31/23 22:20 70 16 154/73 95 05/31/23 22:10 71 18 146/70 95 05/31/23 22:00 71 14 158/67 95 05/31/23 21:50 74 18 136/65 94 L 05/31/23 21:40 73 19 144/65 94 L 05/31/23 21:30 71 14 132/66 96 05/31/23 21:20 73 15 158/67 97 05/31/23 21:10 73 11 L 163/65 96 05/31/23 21:01 82 15 170/78 97 05/31/23 20:30 74 20 145/71 96 05/31/23 20:00 78 24 165/65 97 05/31/23 19:40 83 18 175/76 97 05/31/23 19:10 88 23 144/81 95 05/31/23 19:01 85 16 167/74 96 05/31/23 18:40 85 20 153/64 97 05/31/23 18:05 87 24 149/65 97 05/31/23 17:50 72 22 169/68 97 05/31/23 17:49 76 21 166/54 95 05/31/23 17:48 82 20 98 05/31/23 17:47 97 09/12/23 17:30 180/65 05/31/23 17:20 69 17 180/63 97 05/31/23 17:11 72 19 177/57 97 05/31/23 16:59 70 18 223/80 97 05/31/23 16:15 63 14 235/102 97 05/31/23 16:00 66 22 234/100 97 05/31/23 15:45 65 15 226/97 98 05/31/23 15:30 62 22 225/95 225/95 98 05/31/23 15:14 98 05/31/23 14:30 98.4 F 68 16 243/103 99 General Appearance: no apparent distress Neurologic Exam: alert, oriented x 3 Eye Exam: eyes nml inspection Respiratory Exam: normal breath sounds, lungs clear, No respiratory distress Cardiovascular Exam: regular rate/rhythm, normal heart sounds, No edema Gastrointestinal/Abdomen Exam: tenderness (RUQ), No guarding, No rebound Skin Exam: normal color, No rash Results - Labs Lab/Micro Results: Lab Results-Last 24 Hours 05/31/23 05/31/23 05/31/23 Range/Units 00:20 14:45 14:45 WBC 8.3 (4.0-10.5) x10^3/uL RBC 3.72 L (4.1-5.4) x10^6/uL Hgb 11.3 L (12.0-16.0) g/dL Hct 35.8 (35-47) % MCV 96.2 (78-100) fL MCH 30.4 (26-32) pg MCHC 31.6 L (32-36) g/dL RDW 14.1 H (11.5-14.0) % Plt Count 368 (150-450) x10^3/uL MPV 10.6 (7.5-11.0) fL Gran % 63.3 (36.0-66.0) % Immature Gran % (Auto) 0.6 H (0.00-0.4) % Nucleat RBC Rel Count 0.0 (0.00-0.1) % Eos # (Auto) 0.33 (0-0.5) x10^3/uL Immature Gran # (Auto) 0.05 H (0.00-0.03) x10^3u/L Absolute Lymphs (auto) 1.65 (1.0-4.6) x10^3/uL Absolute Monos (auto) 0.96 (0.0-1.3) x10^3/uL Absolute Nucleated RBC 0.00 (0.00-0.01) x10^3u/L Lymphocytes % 19.8 L (24.0-44.0) % Monocytes % 11.5 (0.0-12.0) % Eosinophils % 4.0 (0.00-5.0) % Basophils % 0.8 (0.0-0.4) % Absolute Granulocytes 5.28 (1.4-6.9) x10^3/uL Basophils # 0.07 (0-0.4) x10^3/uL Sodium 140 (137-145) mmol/L Potassium 4.2 (3.5-5.1) mmol/L Chloride 103 (98-107) mmol/L Carbon Dioxide 28 (22-30) mmol/L Anion Gap 13.6 (5-15) MEQ/L BUN 20 H (7-17) mg/dL Creatinine 0.83 (0.52-1.04) mg/dL Estimated GFR > 60.0 ML/MIN Glucose 107 H (74-106) mg/dL Calcium 9.7 (8.4-10.2) mg/dL Total Bilirubin 0.40 (0.2-1.3) mg/dL AST 24 (14-36) U/L ALT 22 (0-35) U/L Alkaline Phosphatase 291 H (38-126) U/L Troponin I < 0.012 (0.000-0.034) ng/mL NT-Pro-B Natriuret Pep (<300) pg/mL Serum Total Protein 7.6 (6.3-8.2) g/dL Albumin 4.2 (3.5-5.0) g/dL Urine Color (Yellow) Urine Appearance (Clear) Urine pH (4.6-8.0) Ur Specific [place] (1.005-1.030) Urine Protein (Negative) Urine Glucose (UA) (Negative) mg/dL Urine Ketones (Negative) Urine Blood (Negative) Urine Nitrite (Negative) Urine Bilirubin (Negative) Urine Urobilinogen (0.2) mg/dL Ur Leukocyte Esterase (Negative) U Hyaline Cast (Auto) (0-2) /LPF Urine Microscopic RBC (0-5) /HPF Urine Microscopic WBC (0-5) /HPF Ur Epithelial Cells (None Seen) /HPF Urine Bacteria (None Seen) /HPF Urine Culture Reflexed (NO) 05/31/23 05/31/23 05/31/23 Range/Units 14:45 15:14 19:03 WBC (4.0-10.5) x10^3/uL RBC (4.1-5.4) x10^6/uL Hgb (12.0-16.0) g/dL Hct (35-47) % MCV (78-100) fL MCH (26-32) pg MCHC (32-36) g/dL RDW (11.5-14.0) % Plt Count (150-450) x10^3/uL MPV (7.5-11.0) fL Gran % (36.0-66.0) % Immature Gran % (Auto) (0.00-0.4) % Nucleat RBC Rel Count (0.00-0.1) % Eos # (Auto) (0-0.5) x10^3/uL Immature Gran # (Auto) (0.00-0.03) x10^3u/L Absolute Lymphs (auto) (1.0-4.6) x10^3/uL Absolute Monos (auto) (0.0-1.3) x10^3/uL Absolute Nucleated RBC (0.00-0.01) x10^3u/L Lymphocytes % (24.0-44.0) % Monocytes % (0.0-12.0) % Eosinophils % (0.00-5.0) % Basophils % (0.0-0.4) % Absolute Granulocytes (1.4-6.9) x10^3/uL Basophils # (0-0.4) x10^3/uL Sodium (137-145) mmol/L Potassium (3.5-5.1) mmol/L Chloride (98-107) mmol/L Carbon Dioxide (22-30) mmol/L Anion Gap (5-15) MEQ/L BUN (7-17) mg/dL Creatinine (0.52-1.04) mg/dL Estimated GFR ML/MIN Glucose (74-106) mg/dL Calcium (8.4-10.2) mg/dL Total Bilirubin (0.2-1.3) mg/dL AST (14-36) U/L ALT (0-35) U/L Alkaline Phosphatase (38-126) U/L Troponin I < 0.012 < 0.012 (0.000-0.034) ng/mL NT-Pro-B Natriuret Pep 2350 (<300) pg/mL Serum Total Protein (6.3-8.2) g/dL Albumin (3.5-5.0) g/dL Urine Color Yellow (Yellow) Urine Appearance Clear (Clear) Urine pH 6.5 (4.6-8.0) Ur Specific [place] 1.015 (1.005-1.030) Urine Protein Negative (Negative) Urine Glucose (UA) Negative (Negative) mg/dL Urine Ketones Negative (Negative) Urine Blood Negative (Negative) Urine Nitrite Negative (Negative) Urine Bilirubin Negative (Negative) Urine Urobilinogen 0.2 (0.2) mg/dL Ur Leukocyte Esterase Negative (Negative) U Hyaline Cast (Auto) NONE SEEN (0-2) /LPF Urine Microscopic RBC 0-2 (0-5) /HPF Urine Microscopic WBC 0-2 (0-5) /HPF Ur Epithelial Cells None Seen (None Seen) /HPF Urine Bacteria None Seen (None Seen) /HPF Urine Culture Reflexed NO (NO) - Radiology Impressions Radiology Exams & Impressions: Radiology Procedures Category Date Time Status ABDOMEN AND PELVIS W CONTRAST [CT] Stat Exams 05/31/23 20:23 Taken ABDOMEN AND PELVIS W/0 CONTRAS [CT] Stat Exams 05/31/23 16:[address] Abd/pelvis: A sizable ill-defined hepatic hilar mass lesion is noted measuring about 4.6 x 4.5 cm. It is seeen inseparable from duodenum.Per radiology report, concerning for cholangiocarcinoma, as it comes off of the biliary tree. Needs MRCP. 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 ## Hypertension - Unclear why exacerbated. No signs of end-organ damage, so not emergency level. BP controlled on nicardipine drip, can be titrated off. - give dose of Nifedipine 30 mg ER now (not using labetalol or diltiazem to transition off because HR in 60s-low 70s) - titrate off nicardipine drip - resume home lisinopril 40 daily, Toprol XL 50 nightly ## Likely cholangiocarcinoma - incidental finding, but large 4.5 cm mass in hilum of liver, likely cholangiocarcinoma per radiology report. Unable to get transfer to accepting hospital overnight from ED, so admitted under observation. - once transportation available in morning, can transfer to accepting hospital (either [facility] or [facility]) for further workup and evaluation - if unable to transport tomorrow, can arrange for MRCP - other option would be outpatient follow-up ## Chronic stable problems #Glaucoma - continue home Xalatan drops #Hypothyroidism - continue home Synthroid 75 #Chronic R hip pain - give [place] [address] of [address] Percocet 7.5 (not on formulary) Code Status: Full code Prophylaxis: none (short stay, patient ambulatory) Diet: Regular Dispo: Transfer to higher level of care tomorrow once transportation available, for workup of likely cholangiocarcinoma Code(s): I16.0 - HYPERTENSIVE URGENCY Telemedicine Encounter - Telemedicine Encounter Telemedicine Encounter: The entirety of this encounter was performed via Telemedicine"
[2023-06-01 04:52] LABS: Hematocrit 33.2 % (35-47); Hemoglobin 10.5 g/dL (12.0-16.0); Mean Cell Volume 94.6 fL (78-100); Mean Corpuscular Hemoglobin 29.9 pg (26-32); Mean Corpuscular Hgb Concent. 31.6 g/dL (32-36); Mean Platelet Volume 10.6 fL (7.5-11.0); Platelet Count 358 x10^3/uL (150-450); Red Blood Count 3.51 x10^6/uL (4.1-5.4); Red Cell Distribution Width 14.3 % (11.5-14.0); White Blood Count 7.6 x10^3/uL (4.0-10.5)
[2023-06-01 05:07] LABS: ANION GAP 8.5 MEQ/L (5-15); BLOOD UREA NITROGEN 16 mg/dL (7-17); CHLORIDE 103 mmol/L (98-107); Calcium 8.8 mg/dL (8.4-10.2); Carbon Dioxide 30 mmol/L (22-30); EST GLOMERULAR FILTRATION RATE > 60.0 ML/MIN; Glucose 95 mg/dL (74-106); Potassium 3.6 mmol/L (3.5-5.1); SODIUM 139 mmol/L (137-145)
[2023-06-01 08:04] VITALS: BP 117/61; PULSE 78; RESP 20; O2SAT 96
--- NOTE | 2023-06-01 08:56 | XRAY ---
Indication: Abdominal pain. Constipation. Abnormal CT abdomen/pelvis without contrast exam earlier in the day. History choledochal stone. Multiple contiguous images obtained through the abdomen and pelvis using 80 cc Isovue 370 contrast. Comparison: Noncontrast CT exam taken earlier in the day. Lung bases again demonstrate scattered subsegmental atelectasis/scarring and tiny left base calcified granuloma. Heart not enlarged. Again moderate size hiatal hernia with partial intrathoracic stomach. Noncontrasted stomach and bowel loops nonobstructed again with mild diffuse scattered colonic fecal debris throughout. Again appendectomy, cholecystectomy, and hysterectomy. No free fluid/air. Continued abnormally distended biliary tree. Common bile duct remains distended up to 2.2 cm and again demonstrates diffuse intraluminal intermediate densities. Cholangiocarcinoma is of primary consideration. Inspissated bile or noncalcified choledochal stones also offered given patient's history of choledochal stone. No focal solid/cystic hepatic mass. Remaining pancreas, spleen, adrenal glands, kidneys, ureters, and bladder are unremarkable. Remains mild aortoiliac calcifications. No AAA or pathologic retroperitoneal lymphadenopathy. Osseous structures intact again with osteopenia, mild/moderate multilevel thoracolumbar degenerative spondylosis, moderate levorotoscoliosis centered at L4, and old proximal right femur fracture with partially visualized orthopedic fixation hardware. Impression: 1. Again abnormally distended biliary tree and common bile duct with diffuse common bile duct intraluminal densities. Rule out cholangiocarcinoma versus inspissated bile versus noncalcified choledochal stones. ERCP may yield further information. 2. Again diffuse fecal stasis. 3. Chronic findings including hiatal hernia with partial intrathoracic stomach, arteriosclerotic disease, chronic bony findings, and old granulomatous disease.
[2023-06-01] MEDS ORDERED: Zestril 20 MG PO SCH (10:00)
[2023-06-01] MEDS ORDERED: SYNTHROID 75 MCG PO SCH (10:00)
[2023-06-01] MEDS ORDERED: LASIX 20 MG PO SCH (10:00)
--- NOTE | 2023-06-01 10:59 | PCM.DS ---
Discharge Summary Date of Admission: 05/31/23 23:49 Date of Discharge: 06/01/23 Admitting Physician: LISA MADSEN MD Primary Care Provider: STEVE RUDOLPH RYAN Allergies Allergies celecoxib [From Celebrex] Allergy (Verified 05/31/23 14:39) Hospital Summary - Hospital Course Hospital Course: 82 y/o F with h/o hypertension and hypothyroidism, admitted with liver mass. Patient was at physical therapy for her chronic right hip pain when she was noted to have BP up in the 240s. Patients states she was asymptomatic at the time, except for her chronic right hip pain. She denies headache, chest pain, dyspnea, vision changes. She has been compliant with her medications, and took her lisinopril this morning (although had not yet taken her evening Toprol XL dose.) On arrival at the ED, her BP was still in the 230s, and she was started on a nicardipine drip. On exam, she was noted to have RUQ tenderness by ED Dr. Mccoy. Patient denied noting any pain or tenderness there previously. She had her gallbladder removed decades ago (when her daughter was an ) and has noted no problems. Denies itching, jaundice, or change in appetite. On CT, she was fou nd to have a 4.5 x 4.5 cm mass off the biliary tree, concerning for cholangiocarcinoma. She was accepted for transfer to [facility] and [facility]; however, no transportation was available for her overnight. She was being admitted here to manage her blood pressure and now being transferred to [facility]. New Diagnosis: Cholangiocarcinoma/Hypertensive urgency Transferred to higher level of care Latest Assessment & Plan (1) Cholangiocarcinoma Current Visit: Yes Status: Acute Code(s): C22.1 - INTRAHEPATIC BILE DUCT CARCINOMA (2) Hypertensive urgency Current Visit: Yes Status: Acute Assessment & Plan: 82 y/o F with h/o HTN, hypothyroidism, chronic R hip pain, and glaucoma, here with hypertensive urgency and new finding of likely cholangiocarcinoma. ## Hypertension - Unclear why exacerbated. No signs of end-organ damage, so not emergency level. BP controlled on nicardipine drip, can be titrated off. - give dose of Nifedipine 30 mg ER now (not using labetalol or diltiazem to transition off because HR in 60s-low 70s) - titrate off nicardipine drip - resume home lisinopril 40 daily, Toprol XL 50 nightly ## Likely cholangiocarcinoma - incidental finding, but large 4.5 cm mass in hilum of liver, likely cholangiocarcinoma per radiology report. Unable to get transfer to accepting hospital overnight from ED, so admitted under observation. - once transportation available in morning, can transfer to accepting hospital (either [facility] or [facility]) for further workup and evaluation - if unable to transport tomorrow, can arrange for MRCP - other option would be outpatient follow-up ## Chronic stable problems #Glaucoma - continue home Xalatan drops #Hypothyroidism - continue home Synthroid 75 #Chronic R hip pain - give [place] [address] of [address] Percocet 7.5 (not on formulary) Code Status: Full code Prophylaxis: none (short stay, patient ambulatory) Diet: Regular Dispo: Transfer to higher level of care tomorrow once transportation available, for workup of likely cholangiocarcinoma I spent 45 minutes [id number] with the patient on the day of discharge performing discharge exam, discussing hospital stay and discharge instructions with patient and caregivers, preparation of discharge records, prescriptions & referral forms and addressing any questions/concerns the patient had as documented above. - Vitals & Intake/Output Vital Signs: Vital Signs Temperature 97.3 F 06/01/23 08:00 Pulse Rate 78 06/01/23 08:00 Respiratory Rate 20 06/01/23 08:00 Blood Pressure 117/61 06/01/23 08:00 O2 Sat by Pulse Oximetry 96 06/01/23 08:00 Intake & Output: Intake & Output 05/29/23 05/30/23 05/31/23 06/01/23 11:59 11:59 11:59 11:59 Output Total 450 Balance -450 Weight 63.9 kg - Lab Result Diagrams: 06/01/23 04:30 06/01/23 04:30 Lab Results-Last 24 Hrs: Lab Results-Last 24 Hours 05/31/23 05/31/23 05/31/23 Range/Units 00:20 14:45 14:45 WBC 8.3 (4.0-10.5) x10^3/uL RBC 3.72 L (4.1-5.4) x10^6/uL Hgb 11.3 L (12.0-16.0) g/dL Hct 35.8 (35-47) % MCV 96.2 (78-100) fL MCH 30.4 (26-32) pg MCHC 31.6 L (32-36) g/dL RDW 14.1 H (11.5-14.0) % Plt Count 368 (150-450) x10^3/uL MPV 10.6 (7.5-11.0) fL Gran % 63.3 (36.0-66.0) % Immature Gran % (Auto) 0.6 H (0.00-0.4) % Nucleat RBC Rel Count 0.0 (0.00-0.1) % Eos # (Auto) 0.33 (0-0.5) x10^3/uL Immature Gran # (Auto) 0.05 H (0.00-0.03) x10^3u/L Absolute Lymphs (auto) 1.65 (1.0-4.6) x10^3/uL Absolute Monos (auto) 0.96 (0.0-1.3) x10^3/uL Absolute Nucleated RBC 0.00 (0.00-0.01) x10^3u/L Lymphocytes % 19.8 L (24.0-44.0) % Monocytes % 11.5 (0.0-12.0) % Eosinophils % 4.0 (0.00-5.0) % Basophils % 0.8 (0.0-0.4) % Absolute Granulocytes 5.28 (1.4-6.9) x10^3/uL Basophils # 0.07 (0-0.4) x10^3/uL Sodium 140 (137-145) mmol/L Potassium 4.2 (3.5-5.1) mmol/L Chloride 103 (98-107) mmol/L Carbon Dioxide 28 (22-30) mmol/L Anion Gap 13.6 (5-15) MEQ/L BUN 20 H (7-17) mg/dL Creatinine 0.83 (0.52-1.04) mg/dL Estimated GFR > 60.0 ML/MIN Glucose 107 H (74-106) mg/dL Calcium 9.7 (8.4-10.2) mg/dL Total Bilirubin 0.40 (0.2-1.3) mg/dL AST 24 (14-36) U/L ALT 22 (0-35) U/L Alkaline Phosphatase 291 H (38-126) U/L Troponin I < 0.012 (0.000-0.034) ng/mL NT-Pro-B Natriuret Pep (<300) pg/mL Serum Total Protein 7.6 (6.3-8.2) g/dL Albumin 4.2 (3.5-5.0) g/dL Urine Color (Yellow) Urine Appearance (Clear) Urine pH (4.6-8.0) Ur Specific [place] (1.005-1.030) Urine Protein (Negative) Urine Glucose (UA) (Negative) mg/dL Urine Ketones (Negative) Urine Blood (Negative) Urine Nitrite (Negative) Urine Bilirubin (Negative) Urine Urobilinogen (0.2) mg/dL Ur Leukocyte Esterase (Negative) U Hyaline Cast (Auto) (0-2) /LPF Urine Microscopic RBC (0-5) /HPF Urine Microscopic WBC (0-5) /HPF Ur Epithelial Cells (None Seen) /HPF Urine Bacteria (None Seen) /HPF Urine Culture Reflexed (NO) 05/31/23 05/31/23 05/31/23 Range/Units 14:45 15:14 19:03 WBC (4.0-10.5) x10^3/uL RBC (4.1-5.4) x10^6/uL Hgb (12.0-16.0) g/dL Hct (35-47) % MCV (78-100) fL MCH (26-32) pg MCHC (32-36) g/dL RDW (11.5-14.0) % Plt Count (150-450) x10^3/uL MPV (7.5-11.0) fL Gran % (36.0-66.0) % Immature Gran % (Auto) (0.00-0.4) % Nucleat RBC Rel Count (0.00-0.1) % Eos # (Auto) (0-0.5) x10^3/uL Immature Gran # (Auto) (0.00-0.03) x10^3u/L Absolute Lymphs (auto) (1.0-4.6) x10^3/uL Absolute Monos (auto) (0.0-1.3) x10^3/uL Absolute Nucleated RBC (0.00-0.01) x10^3u/L Lymphocytes % (24.0-44.0) % Monocytes % (0.0-12.0) % Eosinophils % (0.00-5.0) % Basophils % (0.0-0.4) % Absolute Granulocytes (1.4-6.9) x10^3/uL Basophils # (0-0.4) x10^3/uL Sodium (137-145) mmol/L Potassium (3.5-5.1) mmol/L Chloride (98-107) mmol/L Carbon Dioxide (22-30) mmol/L Anion Gap (5-15) MEQ/L BUN (7-17) mg/dL Creatinine (0.52-1.04) mg/dL Estimated GFR ML/MIN Glucose (74-106) mg/dL Calcium (8.4-10.2) mg/dL Total Bilirubin (0.2-1.3) mg/dL AST (14-36) U/L ALT (0-35) U/L Alkaline Phosphatase (38-126) U/L Troponin I < 0.012 < 0.012 (0.000-0.034) ng/mL NT-Pro-B Natriuret Pep 2350 (<300) pg/mL Serum Total Protein (6.3-8.2) g/dL Albumin (3.5-5.0) g/dL Urine Color Yellow (Yellow) Urine Appearance Clear (Clear) Urine pH 6.5 (4.6-8.0) Ur Specific [place] 1.015 (1.005-1.030) Urine Protein Negative (Negative) Urine Glucose (UA) Negative (Negative) mg/dL Urine Ketones Negative (Negative) Urine Blood Negative (Negative) Urine Nitrite Negative (Negative) Urine Bilirubin Negative (Negative) Urine Urobilinogen 0.2 (0.2) mg/dL Ur Leukocyte Esterase Negative (Negative) U Hyaline Cast (Auto) NONE SEEN (0-2) /LPF Urine Microscopic RBC 0-2 (0-5) /HPF Urine Microscopic WBC 0-2 (0-5) /HPF Ur Epithelial Cells None Seen (None Seen) /HPF Urine Bacteria None Seen (None Seen) /HPF Urine Culture Reflexed NO (NO) 06/01/23 06/01/23 Range/Units 04:30 04:30 WBC 7.6 (4.0-10.5) x10^3/uL RBC 3.51 L (4.1-5.4) x10^6/uL Hgb 10.5 L (12.0-16.0) g/dL Hct 33.2 L (35-47) % MCV 94.6 (78-100) fL MCH 29.9 (26-32) pg MCHC 31.6 L (32-36) g/dL RDW 14.3 H (11.5-14.0) % Plt Count 358 (150-450) x10^3/uL MPV 10.6 (7.5-11.0) fL Gran % (36.0-66.0) % Immature Gran % (Auto) (0.00-0.4) % Nucleat RBC Rel Count (0.00-0.1) % Eos # (Auto) (0-0.5) x10^3/uL Immature Gran # (Auto) (0.00-0.03) x10^3u/L Absolute Lymphs (auto) (1.0-4.6) x10^3/uL Absolute Monos (auto) (0.0-1.3) x10^3/uL Absolute Nucleated RBC (0.00-0.01) x10^3u/L Lymphocytes % (24.0-44.0) % Monocytes % (0.0-12.0) % Eosinophils % (0.00-5.0) % Basophils % (0.0-0.4) % Absolute Granulocytes (1.4-6.9) x10^3/uL Basophils # (0-0.4) x10^3/uL Sodium 139 (137-145) mmol/L Potassium 3.6 (3.5-5.1) mmol/L Chloride 103 (98-107) mmol/L Carbon Dioxide 30 (22-30) mmol/L Anion Gap 8.5 (5-15) MEQ/L BUN 16 (7-17) mg/dL Creatinine 0.70 (0.52-1.04) mg/dL Estimated GFR > 60.0 ML/MIN Glucose 95 (74-106) mg/dL Calcium 8.8 (8.4-10.2) mg/dL Total Bilirubin (0.2-1.3) mg/dL AST (14-36) U/L ALT (0-35) U/L Alkaline Phosphatase (38-126) U/L Troponin I (0.000-0.034) ng/mL NT-Pro-B Natriuret Pep (<300) pg/mL Serum Total Protein (6.3-8.2) g/dL Albumin (3.5-5.0) g/dL Urine Color (Yellow) Urine Appearance (Clear) Urine pH (4.6-8.0) Ur Specific [place] (1.005-1.030) Urine Protein (Negative) Urine Glucose (UA) (Negative) mg/dL Urine Ketones (Negative) Urine Blood (Negative) Urine Nitrite (Negative) Urine Bilirubin (Negative) Urine Urobilinogen (0.2) mg/dL Ur Leukocyte Esterase (Negative) U Hyaline Cast (Auto) (0-2) /LPF Urine Microscopic RBC (0-5) /HPF Urine Microscopic WBC (0-5) /HPF Ur Epithelial Cells (None Seen) /HPF Urine Bacteria (None Seen) /HPF Urine Culture Reflexed (NO) - Radiology Exams Ordered Rad Exams-Entire Visit: Radiology Procedures Category Date Time Status ABDOMEN AND PELVIS W CONTRAST [CT] Stat Exams 05/31/23 20:23 Completed ABDOMEN AND PELVIS W/0 CONTRAS [CT] Stat Exams 05/31/23 16:06 Completed Discharge Exam General Appearance: no apparent distress Neurologic Exam: alert, oriented x 3, cooperative Ears, Nose, Throat Exam: normal ENT inspection Respiratory Exam: normal breath sounds, lungs clear Cardiovascular Exam: regular rate/rhythm, normal heart sounds Gastrointestinal/Abdomen Exam: soft, normal bowel sounds Skin Exam: normal color Final Diagnosis/Problem List - Final Discharge Diagnosis/Problem (1) Cholangiocarcinoma Status: Chronic Code(s): C22.1 - INTRAHEPATIC BILE DUCT CARCINOMA (2) Hypertensive urgency Status: Acute Code(s): I16.0 - HYPERTENSIVE URGENCY (3) Anemia Status: Chronic Code(s): D64.9 - ANEMIA, UNSPECIFIED (4) Chronic kidney disease, stage 3 Status: Chronic Code(s): N18.3 - CHRONIC KIDNEY DISEASE, STAGE 3 (MODERATE) * DO NOT USE * - Discharge Prescriptions: Continue Metoprolol Succinate 50 mg [Toprol Xl 50 MG] 50 mg PO QHS Levothyroxine Sodium 75 Mcg [Synthroid 75 Mcg] 75 mcg PO DAILY Oxycodone HCl/Acetaminophen [Oxycodone-Acetaminophn 7.5-325] 1 each PO Q4HPRN PRN PRN Reason: Pain Latanoprost [Xalatan] 2.5 ml OP HS Multivitamin with Minerals [Daily Vitamin Formula-Minerals] 1 tab PO HS Furosemide 20 mg [Lasix 20 mg] 20 mg PO DAILY lisinopriL [Lisinopril] 40 mg PO DAILY Follow up with: STEVE RUDOLPH MD [Primary Care Provider] -
[2023-06-01] MEDS ORDERED: Toprol Xl 50 MG PO SCH (22:00)
[2023-06-01] MEDS ORDERED: Xalatan OP SCH (22:00)
== END 2023-06-01 08:50 ==
LOC: ED 14:29 → ICU 23:49
PROVIDERS: ADMIT Internal Medicine; ATTEND Internal Medicine
DX: C22.1 Intrahepatic bile duct carcinoma (principal); I16.0 Hypertensive urgency; I10 Essential (primary) hypertension; E03.9 Hypothyroidism, unspecified; M25.551 Pain in right hip; D64.9 Anemia, unspecified; Z79.899 Other long term (current) drug therapy; Z20.828 Contact with and (suspected) exposure to other viral communicable diseases
CPT/HCPCS: 36000; 36415; 74176; 74177; 80048; 80053; 81001; 83880; 84484; 85025; 85027; 93005; 93041; 93268; 94760; 96365; 96366; G0378; Q3014; 99284; A9270-GY

== ENCOUNTER 2024-02-29 15:17 | Day surgery (SDC) | payer MEDICARE, OTHER ==
--- NOTE | 2024-02-29 20:54 | XRAY ---
Indication: Left knee injection. Intraoperative fluoroscopy provided for 5 seconds. Single digital spot image submitted for interpretation demonstrates needle tip projecting over left femur intercondylar notch. Small amount of contrast injected for needle tip placement. Correlate with intraoperative findings/report.
--- NOTE | 2024-02-29 20:54 | XRAY ---
Indication: Right knee injection. Intraoperative fluoroscopy provided for 6 seconds. Single digital spot image submitted for interpretation demonstrates needle tip projecting over right femur intercondylar notch. Small amount of contrast injected for needle tip placement. Correlate with intraoperative findings/report.
--- NOTE | 2024-02-29 20:58 | XRAY ---
5 seconds of fluoroscopy used in surgery for a left intra-articular knee injection.
--- NOTE | 2024-02-29 20:58 | XRAY ---
6 seconds of fluoroscopy used in surgery for a right intra-articular knee injection.
== END 2024-02-29 17:45 | disposition home or self-care (01) ==
LOC: SDC-PAIN 15:17
PROVIDERS: ATTEND Psychiatry & Neurology Pain Medicine
DX: M17.0 Bilateral primary osteoarthritis of knee (principal)
CPT/HCPCS: 20610; 73560; 77002; Q9966